=== PATIENT | female | born 1935 | race Caucasian/White ===

== ENCOUNTER 2017-12-01 07:11 | Day surgery (SDC) | payer BC, OTHER ==
[2017-11-28 12:35] VITALS: BMI 18.4
[2017-12-01] MEDS ORDERED: PROPOFOL 20 ML ONE ×2 (08:31→09:52)
[2017-12-01] MEDS ORDERED: MIDAZOLAM HCL 2 MG/2 ML SINGLE DOSE VIAL ONE ×2 (08:31→09:30)
[2017-12-01] MEDS ORDERED: LIDOCAINE HCL 2% (20ML MULTI-DOSE VIAL) NR ONE (08:54)
[2017-12-01] MEDS ORDERED: ceFAZolin SODIUM 1 GM VIAL ONE (09:53)
[2017-12-01] MEDS ORDERED: LIDOCAINE HCL 2% (50ML VIAL) INF ONE (09:55)
[2017-12-01 10:53] VITALS: BP 101/65; PULSE 74; TEMP 97.8
--- NOTE | 2017-12-01 14:04 | OP ---
DATE OF OPERATION: 12/01/2017 SURGEON: Sherin Walters MD AUTO WASH BUFFER: RODOLFO Bermudez PREOPERATIVE DIAGNOSIS: Right wrist de Quervain tenosynovitis. POSTOPERATIVE DIAGNOSIS: Right wrist de Quervain tenosynovitis. PROCEDURE: Release of de Quervain sheath. FINDINGS: Thickened de Quervain sheath with impingement upon the abductor and extensor tendons. DESCRIPTION OF PROCEDURE: Informed consent was obtained. The patient was taken to the operating room where the right wrist was prepped and draped in sterile fashion. Upper arm was prepped from the fingertips to the elbow. Tourniquet was inflated to 250 mmHg. A horizontal incision was made approximately 3 cm in length 2 cm proximal to the distal radial styloid. The tendon sheath was incised and then extended proximally and distally using blunt tenotomy scissors. The tendons were found to be scarred into the groove along the radius. These were released. The wounds were irrigated with extensive irrigation. The superior lip of the tissue along the groove at de Quervain sheath was then sewn into the subcutaneous layer on the volar surface to prevent subluxation or dislocation. The wound was irrigated again and closed with 4-0 nylon in simple interrupted sutures. SHERIN WALTERS M.D. [id number]
== END 2017-12-01 11:17 | disposition home or self-care (01) ==
LOC: FASU 07:11
PROVIDERS: ATTEND Orthopaedic Surgery
PROC: 0LN50ZZ Release Right Lower Arm and Wrist Tendon, Open Approach (ICD-10-PCS; principal; 2017-12-01 09:55)
DX: M65.4 Radial styloid tenosynovitis [de Quervain] (principal)

== ENCOUNTER 2019-10-04 15:13 | Emergency (ER) | payer BC, OTHER ==
--- NOTE | 2019-10-04 15:15 | PDOC ---
History of Present Illness - General Chief Complaint: Back Pain Stated Complaint: R flank pain/LLE wound Time Seen by Provider: 10/04/19 15:15 Past History - Medical History Allergies/Adverse Reactions: Allergies Allergy/AdvReac Type Severity Reaction Status Date / Time No Known Allergies Allergy Verified 12/01/17 07:46 Home Medications: Ambulatory Orders Amlodipine Besylate 5 mg PO DAILY 11/28/17 Aspirin [ASA -] 81 mg PO DAILY 11/28/17 Atorvastatin Ca [Lipitor] 10 mg PO DAILY 11/28/17 Metoprolol Tartrate [Lopressor -] 50 mg PO DAILY 11/28/17 Umeclidinium Brm/Vilanterol Tr [Anoro Ellipta 62.5-25 Mcg INH] 1 each IH DAILY 11/29/17 Anemia: No Asthma: No Cancer: Yes (SKIN CANCER) Cardiac Disorders: No CVA: No COPD: Yes CHF: No Dementia: No Diabetes: No GI Disorders: No Disorders: No HTN: Yes Hypercholesterolemia: Yes Liver Disease: No Seizures: No Thyroid Disease: No - Surgical History Abdominal Surgery: No Appendectomy: Yes (CHILDHOOD) Cardiac Surgery: No Cholecystectomy: No Lung Surgery: No Neurologic Surgery: No Orthopedic Surgery: No - Immunization History Immunization Up to Date: Yes - Psycho-Social/Smoking History Smoking History: Former smoker Have you smoked in the past 12 months: No Number of Cigarettes Smoked Daily: 2 If you are a former smoker, when did you quit?: 2016 Cigars Per Day: 0 'Breaking Loose' booklet given: 05/20/15
[2019-10-04 15:37] VITALS: BMI 18.4
[2019-10-04] MEDS ORDERED: traMADol HCL 50 MG TABLET PO ONE (15:39)
--- NOTE | 2019-10-04 15:51 | PDOC ---
Documentation entered by Trinidad Doyle SCRIBE, acting as scribe for Bernadette Bryant MD. Bernadette Bryant MD: This documentation has been prepared by the Vivek burger Xhesika, SCRIBE, under my direction and personally reviewed by me in its entirety. I confirm that the documentation accurately reflects all work, treatment, procedures, and medical decision making performed by me. History of Present Illness - General Chief Complaint: Back Pain Stated Complaint: R flank pain/LLE wound Time Seen by Provider: 10/04/19 15:15 History Source: Patient Exam Limitations: No Limitations - History of Present Illness Initial Comments: 10/04/19 15:17 The patient is a 83y/o F with a PMH of COPD, hypertension, skin ca who presents to the ED for R flank pain since last night. Pt states her pain is localized only at her "bottom rib," with no aggravating factor. Pt states she bent over to feed the cats and might have "pulled a muscle." Daughter states this morning she noticed a LLE wound that the patient reports is from a "cat scratch." Per daughter, the patient took Tylenol this AM, with no improvement of symptoms. The patient denies any other symptoms/ complaints. Allergies: NKDA Past surgical history: Appendectomy (childhood) Social Hx:former smoker PCP: Dr. Coronado Past History - Medical History Allergies/Adverse Reactions: Allergies Allergy/AdvReac Type Severity Reaction Status Date / Time No Known Allergies Allergy Verified 12/01/17 07:46 Home Medications: Ambulatory Orders Aspirin [ASA -] 81 mg PO DAILY 11/28/17 Metoprolol Tartrate [Lopressor -] 50 mg PO DAILY 11/28/17 Umeclidinium Brm/Vilanterol Tr [Anoro Ellipta 62.5-25 Mcg INH] 1 each IH DAILY 11/29/17 Anemia: No Asthma: No Cancer: Yes (SKIN CANCER) Cardiac Disorders: No CVA: No COPD: Yes CHF: No Dementia: No Diabetes: No GI Disorders: No Disorders: No HTN: Yes Hypercholesterolemia: Yes Liver Disease: No Seizures: No Thyroid Disease: No - Surgical History Abdominal Surgery: No Appendectomy: Yes (CHILDHOOD) Cardiac Surgery: No Cholecystectomy: No Lung Surgery: No Neurologic Surgery: No Orthopedic Surgery: No - Immunization History Immunization Up to Date: Yes - Psycho-Social/Smoking History Smoking History: Former smoker Have you smoked in the past 12 months: No Number of Cigarettes Smoked Daily: 2 If you are a former smoker, when did you quit?: 2016 Cigars Per Day: 0 'Breaking Loose' booklet given: 05/20/15 Review of Systems - Review of Systems Able to Perform ROS?: Yes Comments:: 10/04/19 15:41 GENERAL/CONSTITUTIONAL: No fever or chills. No weakness. HEAD, EYES, EARS, NOSE AND THROAT: No change in vision. No ear pain or discharge. No sore throat. CARDIOVASCULAR: No chest pain or shortness of breath. RESPIRATORY: No cough, wheezing, or hemoptysis. GASTROINTESTINAL: No nausea, vomiting, diarrhea or constipation. GENITOURINARY: No dysuria, frequency, or change in urination. MUSCULOSKELETAL: + R flank pain. No joint or muscle swelling or pain. No neck pain SKIN: +LLE wound NEUROLOGIC: No headache, vertigo, loss of consciousness, or change in strength/sensation. ENDOCRINE: No increased thirst. No abnormal weight change. HEMATOLOGIC/LYMPHATIC: No anemia, easy bleeding, or history of blood clots. ALLERGIC/IMMUNOLOGIC: No hives or skin allergy. *Physical Exam - Physical Exam GENERAL: Awake, alert, and fully oriented, in no acute distress HEAD: No signs of trauma EYES: PERRLA, EOMI, sclera anicteric, conjunctiva clear ENT: Auricles normal inspection, hearing grossly normal, nares patent, oropharynx clear without exudates. Moist mucosa NECK: Normal ROM, supple, no lymphadenopathy, JVD, or masses LUNGS: Breath sounds equal, clear to auscultation bilaterally. No wheezes, and no crackles. +Tenderness to the R lateral lower rib margin. No visible ecchymosis, no signs of trauma. HEART: Regular rate and rhythm, normal S1 and S2, no murmurs, rubs or gallops ABDOMEN: Soft, nontender, normoactive bowel sounds. No guarding, no rebound. No masses EXTREMITIES: L lower leg with healing lesion surrounded by approx 1cm of erythema, no lymphatic streaking. Remainder of extremities with normal range of motion, no edema. No clubbing or cyanosis. No cords, erythema, or tenderness NEUROLOGICAL: Cranial nerves II through XII grossly intact. Normal speech, normal gait. Motor and sensation intact SKIN: Warm, dry, normal turgor, no rashes or lesions noted. Medical Decision Making - Medical Decision Making 10/04/19 15:51 Nontraumatic R rib pain. History of osteoporosis, history of prior fractures without trauma. Will give tramadol for pain, as she has tolerated it in the past. XR to evaluate. 10/04/19 17:44 Will give pain meds for R 8th rib chronic fracture, abx for cellulitis of LLE. Stable for DC home. Discharge - Discharge Information Problems reviewed: Yes Clinical Impression/Diagnosis: Cellulitis of left leg Fracture, rib Qualifiers: Encounter type: initial encounter Rib fracture type: single rib Fracture type: closed Laterality: unspecified laterality Qualified Code(s): S22.39XA - Fracture of one rib, unspecified side, initial encounter for closed fracture Condition: Stable Disposition: HOME - Follow up/Referral Referrals: Clint Cornoado MD [Primary Care Provider] - - Patient Discharge Instructions - Post Discharge Activity
[2019-10-04] MEDS ORDERED: traMADol HCL 50 MG TABLET ONE (15:56)
[2019-10-04 17:10] VITALS: BP 138/93; PULSE 73; TEMP 98.7
== END 2019-10-04 17:59 | disposition home or self-care (01) ==
LOC: SUPCPDRO 15:13 → FER 15:13
DX: S22.31XA Fracture of one rib, right side, initial encounter for closed fracture (principal); Y99.8 Other external cause status
CPT/HCPCS: 71101-TC-RT-FY; 99283-25

== ENCOUNTER 2019-10-09 13:05 | Inpatient (IN) | payer BC, OTHER ==
--- NOTE | 2019-10-09 13:28 | PDOC ---
History of Present Illness - General Chief Complaint: Chronic pain Stated Complaint: Chest Pain Time Seen by Provider: 10/09/19 13:26 - History of Present Illness Initial Comments: The pt is a 83F w/ a history of HTN, chronic pain, COPD, chronic rib fractures who presents for evaluation of b/l thoracic wall pain. The pain is intermittent, sharp, non-radiating, worse with movement/touch/breathing, and not alleviated by anything she can identify. Denies any recent falls or trauma. No fevers or cough at home. She has been taking Tramadol and Tylenol for symptomatic relief. Denies fevers/chills, abdominal pain, N/V, dysuria, hematuria, or changes in strength/sensation. 10/09/19 14:10 Past History - Medical History Allergies/Adverse Reactions: Allergies Allergy/AdvReac Type Severity Reaction Status Date / Time No Known Allergies Allergy Verified 10/09/19 13:22 Home Medications: Ambulatory Orders Aspirin [ASA -] 81 mg PO DAILY 11/28/17 Metoprolol Tartrate [Lopressor -] 50 mg PO DAILY 11/28/17 Umeclidinium Brm/Vilanterol Tr [Anoro Ellipta 62.5-25 Mcg INH] 1 each IH DAILY 11/29/17 Cephalexin Monohydrate [Keflex -] 250 mg PO Q6H #28 capsule 10/04/19 Tramadol HCl 50 mg PO Q6H PRN #12 tablet MDD 4 tabs 10/04/19 Acetaminophen [Tylenol] 650 mg PO Q6H 10/09/19 Anemia: No Asthma: No Cancer: Yes (SKIN CANCER) Cardiac Disorders: No CVA: No COPD: Yes CHF: No Dementia: No Diabetes: No GI Disorders: No Disorders: No HTN: Yes Hypercholesterolemia: Yes Liver Disease: No Seizures: No Thyroid Disease: No - Surgical History Abdominal Surgery: No Appendectomy: Yes (CHILDHOOD) Cardiac Surgery: No Cholecystectomy: No Lung Surgery: No Neurologic Surgery: No Orthopedic Surgery: No - Immunization History Immunization Up to Date: Yes - Psycho-Social/Smoking History Smoking History: Never smoked Have you smoked in the past 12 months: No Number of Cigarettes Smoked Daily: 2 If you are a former smoker, when did you quit?: 2016 Cigars Per Day: 0 'Breaking Loose' booklet given: 05/20/15 - Substance Abuse Hx (Audit-C & DAST Scrn) How often the patient has a drink containing alcohol: Never Score: In Men: 4 or > Positive; In Women: 3 or > Positive: 0 Screen Result (Pos requires Nsg. Audit-10AR): Negative In the last yr the pt used illegal drug/Rx for NonMed reason: No Score: Yes response is considered Positive: 0 Screen Result (Positive result requires Nsg. DAST-10): Negative Review of Systems - Review of Systems Able to Perform ROS?: Yes Comments:: GENERAL/CONSTITUTIONAL: No fever or chills. HEAD, EYES, EARS, NOSE AND THROAT: No change in vision. No change in hearing. No sore throat CARDIOVASCULAR: +chest wall pain RESPIRATORY: Denies cough GASTROINTESTINAL: No nausea, vomiting, diarrhea or constipation GENITOURINARY: No dysuria MUSCULOSKELETAL: +thoracic wall pain SKIN: No rash NEUROLOGIC: No headache, vertigo, loss of consciousness, or change in strength/sensation ENDOCRINE: No increased thirst. No abnormal weight change HEMATOLOGIC/LYMPHATIC: No anemia, easy bleeding, or history of blood clots ALLERGIC/IMMUNOLOGIC: No hives or skin allergy 10/09/19 13:27 Is the patient limited Ukrainian proficient: No *Physical Exam - Vital Signs Last Vital Signs Temp Pulse Resp BP Pulse Ox 98.5 F 83 20 160/88 95 10/09/19 13:23 10/09/19 13:23 10/09/19 13:23 10/09/19 13:23 10/09/19 13:23 - Physical Exam GENERAL: Awake, alert, and oriented to person/place/time, in no acute distress HEAD: No signs of trauma, normocephalic, atraumatic EYES: PERRLA, EOMI, sclera anicteric, conjunctiva clear ENT: Hearing grossly normal, nares patent, oropharynx clear without exudates. Dry mucosa LUNGS: No distress, speaks in full sentences, clear to auscultation bilaterally HEART: Regular rate and rhythm, normal S1 and S2, no murmurs appreciated, peripheral pulses normal and equal bilaterally CHEST: B/l thoracic wall TTP w/o underlying bony crepitus, ecchymosis, or wound ABDOMEN: Soft, nontender, normoactive bowel sounds. No guarding, no rebound EXTREMITIES: Moves all extremities independently NEUROLOGICAL: Cranial nerves II through XII grossly intact. Normal speech, no focal sensorimotor deficits SKIN: Warm, Dry 10/09/19 13:28 ED Treatment Course - LABORATORY CBC & Chemistry Diagram: 10/09/19 13:54 10/09/19 13:54 Medical Decision Making - Medical Decision Making The pt is a 83F w/ a history of HTN, chronic pain, COPD, chronic rib fractures who presents for evaluation of b/l thoracic wall pain and was sent here for admission by Dr. Sharma ED Course Labs sent ECG COVID 10/09/19 14:14 WBC 10.3 No anemia Lytes overall unremarkable No ISABELL LFTs overall unremarkable ECG w/ poor baseline; NSR; HR 69; QTc 413; no axis deviation; no acute ischemic changes Case discussed with Dr. Sharma, will obtain CT chest CT chest w/ likely developing infiltrate w/o fx - will treat with Ceftriaxone and Azithromycin Plan for admission for pain control and PNA tx 10/09/19 18:08 Discharge - Discharge Information Problems reviewed: Yes Clinical Impression/Diagnosis: Intractable pain, Chest wall pain Condition: Stable - Admission Yes - Follow up/Referral - Patient Discharge Instructions - Post Discharge Activity
[2019-10-09 14:11] LABS: BASO % 1.1 % (0-2.0); EOS % 0.7 % (0-4.5); HEMATOCRIT 36.8 % (32.4-45.2); HEMOGLOBIN 12.4 GM/dL (10.7-15.3); LYMPH % 13.8 % (8-40); MCH 32.8 pg (25.7-33.7); MCHC 33.8 g/dl (32.0-36.0); MEAN CELL VOLUME 97.1 fl (80-96); MONO % 10.1 % (3.8-10.2); NEUT % 74.3 % (42.8-82.8); PLATELET COUNT 489 K/MM3 (134-434); RBC 3.79 M/mm3 (3.60-5.2); RDW 12.6 % (11.6-15.6); WHITE BLOOD COUNT 10.3 K/mm3 (4.0-10.0)
--- NOTE | 2019-10-09 14:29 | PDOC ---
Documentation entered by Viridiana Escoto SCRIBE, acting as scribe for Nazario Silva MD. Nazario Silva MD: This documentation has been prepared by the Jevon burger Ana, SCRIBE, under my direction and personally reviewed by me in its entirety. I confirm that the documentation accurately reflects all work, treatment, procedures, and medical decision making performed by me. Attending Attestation - Resident Resident Name: Santana Villegas - ED Attending Attestation I have performed the following: I have examined & evaluated the patient, The case was reviewed & discussed with the resident, I agree w/resident's findings & plan, Exceptions are as noted - HPI HPI: 10/09/19 13:26 Patient is an 83 year old female with a significant past medical history of tobacco use, COPD, hypertension, skin ca, chronic pain, and compression f ractures in vertebrae, who presents to the ED with weeks of worsening chest wall pain. Patient stated the pain is sharp, non-radiating, and intermittent which becomes worse when breathing, movement, and touch - but nothing makes the pain better. Pt states she first experienced the pain while bending down to feed her cats last week. Was seen in the ED and had negative rib series. Patient denies: any recent falls/ trauma, any changes in strength/ sensation, fevers, chills, nausea, vomiting, coughs, abdominal pain, dysuria, hematuria, or any other related symptoms. Allergies: NKDA PCP: Dr. Clint Coronado - Physicial Exam PE: 10/09/19 13:27 See resident exam - Medical Decision Making 10/09/19 14:30 83 F with rib pain, sent in for admission for pain control. - Labs - CXR - EKG Discharge - Discharge Information Problems reviewed: Yes Clinical Impression/Diagnosis: Chest wall pain, Intractable pain Condition: Stable - Follow up/Referral - Patient Discharge Instructions - Post Discharge Activity
[2019-10-09 14:50] LABS: ALBUMIN 3.3 g/dl (3.4-5.0); BILIRUBIN,TOTAL 0.5 mg/dL (0.2-1); BLOOD UREA NITROGEN 22.4 mg/dL (7-18); POTASSIUM 4.2 mmol/L (3.5-5.1); TOT PROT 6.9 g/dl (6.4-8.2)
[2019-10-09] MEDS ORDERED: ACETAMINOPHEN 1000 MG/100 ML VIAL (NON FORMULARY) IVPB ONE (15:07)
[2019-10-09] MEDS ORDERED: ACETAMINOPHEN INJECTION 100 ML IVPB ONE (15:08)
[2019-10-09] MEDS ORDERED: CEFTRIAXONE 1 GM in DEXTROSE 5%-WATER - 50 ML IVPB ONE ×2 (18:08→19:00)
[2019-10-09] MEDS ORDERED: AZITHROMYCIN IVPB 500 MG/250 ML BAG IVPB ONE ×3 (18:08→19:52)
[2019-10-09 18:17] VITALS: BMI 17.9
[2019-10-09] MEDS ORDERED: cefTRIAXone SODIUM 1 GM VIAL ONE (19:52)
[2019-10-09] MEDS ORDERED: DEXTROSE 5%-WATER - 50 ML IVPB ONE (19:55)
[2019-10-09] MEDS ORDERED: ACETAMINOPHEN 500 MG TABLET (FP) PO PRN (20:28)
[2019-10-09] MEDS: traMADol HCL 50 MG TABLET PO PRN (21:11)
--- NOTE | 2019-10-09 22:58 | HP ---
Admitting History and Physical - Primary Care Physician PCP: Myrna Sharma - Admission Chief Complaint: SOB, Back Pain History of Present Illness: This is a 83 y/o female with a PMHx of HTN, COPD, Anemia, OA, Chronic Pain, Chronic Rib Fractures. Who presents to the ED with SOB and back pain. Patient reports having generalized weakness, increased SOB worse with exertion. Patient states" I'm so weak that my daughter had to help me to the bathroom". Patient uses a walker for ambulation, but says she is to weak to use it. Patient lives alone and states she needs help at home. Patient denies fever, chills, cough, MITCHELL, dizziness,l CP, palpitations, AP, N/V, dysuria. Patient denies any sick contacts or recent travel. History Source: Patient Limitations to Obtaining History: No Limitations - Past Medical History Cardiovascular: Yes: HTN Pulmonary: Yes: COPD Heme/Onc: Yes: Anemia Musculoskeletal: Yes: Osteoarthritis, Other (severe osteroporosis) - Smoking History Smoking history: Former smoker Have you smoked in the past 12 months: No Aproximately how many cigarettes per day: 2 If you are a former smoker, when did you quit?: 2016 - Alcohol/Substance Use Hx Alcohol Use: No (RARE) History of Substance Use: reports: None - Social History Usual Living Arrangement: Yes: Alone ADL: Family Assistance History of Recent Travel: No Home Medications - Allergies Allergies/Adverse Reactions: Allergies Allergy/AdvReac Type Severity Reaction Status Date / Time No Known Allergies Allergy Verified 10/09/19 13:22 - Home Medications Home Medications: Ambulatory Orders Aspirin [ASA -] 81 mg PO DAILY 11/28/17 Metoprolol Tartrate [Lopressor -] 50 mg PO DAILY 11/28/17 Umeclidinium Brm/Vilanterol Tr [Anoro Ellipta 62.5-25 Mcg INH] 1 each IH DAILY 11/29/17 Cephalexin Monohydrate [Keflex -] 250 mg PO Q6H #28 capsule 10/04/19 Tramadol HCl 50 mg PO Q6H PRN #12 tablet MDD 4 tabs 10/04/19 Acetaminophen [Tylenol] 650 mg PO Q6H 10/09/19 Metamucil 1 PO DAILY 10/09/19 Family Medical History Family History: Unable to Obtain Review of Systems - Review of Systems Constitutional: reports: Weakness Eyes: reports: No Symptoms HENT: reports: No Symptoms Neck: reports: No Symptoms Cardiovascular: reports: Shortness of Breath Respiratory: reports: SOB, SOB on Exertion Gastrointestinal: reports: Constipation Genitourinary: reports: No Symptoms Breasts: reports: No Symptoms Reported Musculoskeletal: reports: Back Pain Integumentary: reports: No Symptoms Neurological: reports: Unsteady Gait, Weakness Endocrine: reports: No Symptoms Hematology/Lymphatic: reports: No Symptoms Psychiatric: reports: No Symptoms Pain Intensity: 7 Physical Examination Vital Signs: Vital Signs Temperature 98.7 F 10/09/19 18:01 Pulse Rate 92 H 10/09/19 18:01 Respiratory Rate 18 10/09/19 18:01 Blood Pressure 122/66 10/09/19 18:01 O2 Sat by Pulse Oximetry (%) 95 10/09/19 18:01 Constitutional: Yes: Cachectic, Mild Distress, Thin Eyes: Yes: WNL, Conjunctiva Clear, EOM Intact, PERRL HENT: Yes: WNL, Atraumatic, Normocephalic Neck: Yes: WNL, Supple, Trachea Midline Cardiovascular: Yes: Regular Rate and Rhythm, S1, S2 Respiratory: Yes: Diminished Gastrointestinal: Yes: Soft, Hypoactive Bowel Sounds ...Rectal Exam: Yes: Deferred Renal/: Yes: WNL Breast(s): Yes: WNL Musculoskeletal: Yes: Back Pain Extremities: Yes: WNL Edema: No Peripheral Pulses WNL: Yes Integumentary: Yes: Other (scab to LLE) Neurological: Yes: Alert, Oriented, Cran Nerves II-XII Intact ...Motor Strength: WNL Psychiatric: Yes: WNL, Alert, Oriented Labs: CBC, BMP 10/09/19 13:54 10/09/19 13:54 Laboratory Results - last 24 hr 10/09/19 10/09/19 13:54 13:54 WBC 10.3 H RBC 3.79 Hgb 12.4 Hct 36.8 D MCV 97.1 H MCH 32.8 MCHC 33.8 RDW 12.6 Plt Count 489 H MPV 7.0 L Absolute Neuts (auto) 7.7 Neutrophils % 74.3 D Lymphocytes % 13.8 D Monocytes % 10.1 Eosinophils % 0.7 Basophils % 1.1 Nucleated RBC % 0 Sodium 135 L Potassium 4.2 Chloride 101 Carbon Dioxide 25 Anion Gap 9 BUN 22.4 H Creatinine 1.0 Est GFR (CKD-EPI)AfAm 59.49 Est GFR (CKD-EPI)NonAf 51.33 Random Glucose 84 Calcium 9.0 Total Bilirubin 0.5 AST 14 L ALT 11 L Alkaline Phosphatase 111 Total Protein 6.9 Albumin 3.3 L Intake & Output 10/06/19 10/07/19 10/08/19 10/09/19 23:59 23:59 23:59 23:59 Weight 45.813 kg Current Medications Generic Name Dose Route Start Last Admin Trade Name Freq PRN Reason Stop Dose Admin Acetaminophen 1,000 mg 10/09/19 20:29 Tylenol - PO Q6H PRN FEVER PAIN LEVEL 1-5 Aspirin 81 mg 10/10/19 10:00 Asa - PO DAILY [facility] Docusate Sodium 100 mg 10/09/19 23:00 Colace - PO TID [facility] Ceftriaxone Sodium 1 gm/ 50 mls @ 100 mls/hr 10/10/19 10:00 Dextrose IVPB DAILY [facility] Protocol Azithromycin 500 mg in 250 mls @ 250 mls/hr 10/10/19 10:00 Zithromax 500mg Ivpb (Pre-Docked) IVPB DAILY [facility] Metoprolol Tartrate 50 mg 10/10/19 10:00 Lopressor - PO DAILY [facility] Tramadol HCl 50 mg 10/09/19 20:27 10/09/19 21:11 Ultram - PO 50 mg Q6H PRN Administration PAIN LEVEL 6-10 Umeclidinium/Vilanterol 1 puff 10/10/19 10:00 Anoro Ellipta 62.5-25 Mcg Inh IH DAILY [facility] Imaging - Results Cat Scan: Report Reviewed, Image Reviewed EKG: Image Reviewed Problem List - Problems (1) Pneumonia Assessment/Plan: Will treat for CAP CURB65- 2, mod risk Blood Cultures pending Urine Legionella Mild leukocytosis without neutrophilia Pt is afebrile Chest CT reviewed- consolidations/atelectasis both bases R > L, with a small R- pleural effusion Continue Ceftriaxone, Azithromycin EKG-NSR QTc 413 Monitor CBC, CMP Monitor vitals Tylenol prn O2 Code(s): J18.9 - PNEUMONIA, UNSPECIFIED ORGANISM (2) Chronic back pain Code(s): M54.9 - DORSALGIA, UNSPECIFIED; G89.29 - OTHER CHRONIC PAIN (3) COPD (chronic obstructive pulmonary disease) Assessment/Plan: Chest CT- consolidation/atelectasis in bases R>L Appreciate Pulmonology Continue Albuterol MDI O2 Code(s): J44.9 - CHRONIC OBSTRUCTIVE PULMONARY DISEASE, UNSPECIFIED (4) HTN (hypertension) Assessment/Plan: stable Monitor BP Continue home meds Monitor renal function Code(s): I10 - ESSENTIAL (PRIMARY) HYPERTENSION Assessment/Plan This is a 83 y/o female with a PMHx of HTN, COPD, Chronic Pain, Chronic Rib Fractures. Admitted to [facility] for Pneumonia, Chronic Back Pain for further greta luation of their emergent condition. Plan: See Problem List FEN PO fluids as tolerated Replete lytes prn Low Na Diet DVT ppx OOB SCDs Heparin SQ Dispo: Requires Inpatient Care Visit type - Medication Review Med list reviewed for High Risk Meds patients 65 and older: No (orders placed by PMD) - Emergency Visit Emergency Visit: Yes ED Registration Date: 10/09/19 Care time: The patient presented to the Emergency Department on the above date and was hospitalized for further evaluation of their emergent condition. - New Patient This patient is new to me today: Yes Date on this admission: 10/09/19 - Critical Care Critical Care patient: No
[2019-10-10] MEDS: DOCUSATE SODIUM 100 MG CAPSULE (FP) PO SCH ×4 (00:12→21:57)
--- NOTE | 2019-10-10 08:20 | PN ---
Progress Note, Physician - Current Medication List Current Medications: Active Medications Acetaminophen (Tylenol -) 1,000 mg PO Q6H PRN PRN Reason: FEVER PAIN LEVEL 1-5 Aspirin (Asa -) 81 mg PO DAILY [facility] Docusate Sodium (Colace -) 100 mg PO TID [facility] Last Admin: 10/10/19 06:31 Dose: 100 mg Documented by: Ceftriaxone Sodium 1 gm/ (Dextrose) 50 mls @ 100 mls/hr IVPB DAILY [facility]; Protocol Azithromycin (Zithromax 500mg Ivpb (Pre-Docked)) 500 mg in 250 mls @ 250 mls/hr IVPB DAILY [facility] Metoprolol Tartrate (Lopressor -) 50 mg PO DAILY [facility] Tramadol HCl (Ultram -) 50 mg PO Q6H PRN PRN Reason: PAIN LEVEL 6-10 Last Admin: 10/09/19 21:11 Dose: 50 mg Documented by: Umeclidinium/Vilanterol (Anoro Ellipta 62.5-25 Mcg Inh) 1 puff IH DAILY [facility] - Objective Vital Signs: Vital Signs Temperature 98.6 F 10/10/19 05:09 Pulse Rate 75 10/10/19 05:09 Respiratory Rate 18 10/10/19 05:09 Blood Pressure 124/84 10/10/19 05:09 O2 Sat by Pulse Oximetry (%) 96 10/10/19 05:09 Cardiovascular: Yes: S1, S2 Respiratory: Yes: Diminished Gastrointestinal: Yes: Normal Bowel Sounds, Soft Labs: CBC, BMP 10/09/19 13:54 10/09/19 13:54 Problem List - Problems (1) Pneumonia Assessment/Plan: Blood Cultures pending Urine Legionella Mild leukocytosis without neutrophilia Pt is afebrile Chest CT reviewed- consolidations/atelectasis both bases R > L, with a small R- pleural effusion Continue Ceftriaxone, Azithromycin pulm and id consults Abnormal Lab Results 10/09/19 10/09/19 13:54 13:54 WBC 10.3 H MCV 97.1 H Plt Count 489 H MPV 7.0 L Sodium 135 L BUN 22.4 H AST 14 L ALT 11 L Albumin 3.3 L Code(s): J18.9 - PNEUMONIA, UNSPECIFIED ORGANISM (2) COPD (chronic obstructive pulmonary disease) Assessment/Plan: Chest CT- consolidation/atelectasis in bases R>L Appreciate Pulmonology Continue Albuterol MDI O2 Code(s): J44.9 - CHRONIC OBSTRUCTIVE PULMONARY DISEASE, UNSPECIFIED (3) HTN (hypertension) Assessment/Plan: stable Monitor BP Continue home meds Vital Signs Period Temp Pulse Resp BP Sys/Anthony Pulse Ox Last 24 Hr 98.5 F-98.7 F 72-92 18-20 122-160/54-88 90-97 Code(s): I10 - ESSENTIAL (PRIMARY) HYPERTENSION (4) Fracture, rib Assessment/Plan: history need to gather info Code(s): S22.39XA - FRACTURE OF ONE RIB, UNSP SIDE, INIT FOR CLOS FX Qualifiers: Encounter type: initial encounter Rib fracture type: single rib Fracture type: closed Laterality: unspecified laterality Qualified Code(s): S22.39XA - Fracture of one rib, unspecified side, initial encounter for closed fracture (5) Lung cancer Assessment/Plan: per oncology obtain records Code(s): C34.90 - MALIGNANT NEOPLASM OF UNSP PART OF UNSP BRONCHUS OR LUNG
[2019-10-10] MEDS: traMADol HCL 50 MG TABLET PO PRN ×2 (08:28→17:22)
[2019-10-10 08:46] LABS: BASO % 1.1 % (0-2.0); EOS % 1.8 % (0-4.5); HEMATOCRIT 36.4 % (32.4-45.2); HEMOGLOBIN 12.4 GM/dL (10.7-15.3); LYMPH % 20.4 % (8-40); MCH 33.2 pg (25.7-33.7); MEAN CELL VOLUME 97.6 fl (80-96); MEAN PLT VOLUME 6.9 fl (7.5-11.1); MONO % 9.4 % (3.8-10.2); NEUT % 67.3 % (42.8-82.8); PLATELET COUNT 472 K/MM3 (134-434); RBC 3.73 M/mm3 (3.60-5.2); WHITE BLOOD COUNT 9.4 K/mm3 (4.0-10.0)
[2019-10-10 09:19] LABS: ALBUMIN 2.9 g/dl (3.4-5.0); BILIRUBIN,TOTAL 0.5 mg/dL (0.2-1); BLOOD UREA NITROGEN 19.2 mg/dL (7-18); CALCIUM 8.7 mg/dL (8.5-10.1); POTASSIUM 4.3 mmol/L (3.5-5.1); TOT PROT 6.4 g/dl (6.4-8.2)
--- NOTE | 2019-10-10 10:06 | PN ---
Progress Note (short form) - Note Progress Note: ID CONSULT DICTATED DENSE RLL LUNG CONSOLIDATION R/O SEPSIS SECONDARY TO PNEUMONIA ? LUNG MALIGNANCY + VERTEBRAL COMPRESSION FRACTURES, OLD R RIB FRACTURES OBTAIN C/S, LEGIONELLA AG, CYTOLOGY EMPIRIC ZITHROMAX/ CEFTRIAXONE
[2019-10-10] MEDS ORDERED: cefTRIAXone SODIUM 1 GM VIAL ONE (10:36)
[2019-10-10] MEDS ORDERED: PT OWN MED DRAWER 7, Y5N ONE (10:36)
[2019-10-10] MEDS ORDERED: DEXTROSE 5%-WATER - 50 ML IVPB ONE (10:37)
[2019-10-10] MEDS: METOPROLOL TARTRATE 50 MG TABLET (FP) PO SCH (11:03)
[2019-10-10] MEDS: ASPIRIN 81 MG CHEWABLE TABLETS PO SCH (11:03)
[2019-10-10] MEDS: CEFTRIAXONE 1 GM in DEXTROSE 5%-WATER - 50 ML IVPB SCH (11:04)
[2019-10-10] MEDS: AZITHROMYCIN IVPB 500 MG/250 ML BAG IVPB SCH (12:06)
[2019-10-10] MEDS: ACETAMINOPHEN 500 MG TABLET (FP) PO PRN (12:08)
--- NOTE | 2019-10-10 12:11 | EKG ---
Test Reason : Blood Pressure : / mmHG Vent. Rate : 069 BPM Atrial Rate : 069 BPM P-R Int : 186 ms QRS Dur : 078 ms QT Int : 386 ms P-R-T Axes : 024 050 072 degrees QTc Int : 413 ms POOR DATA QUALITY, INTERPRETATION MAY BE ADVERSELY AFFECTED NORMAL SINUS RHYTHM MODERATE VOLTAGE CRITERIA FOR LVH, MAY BE NORMAL VARIANT BORDERLINE ECG WHEN COMPARED WITH ECG OF 13-AUG-2015 16:26, NO SIGNIFICANT CHANGE WAS FOUND Confirmed by LARS DILLON MD ([id number]) on 10/10/2019 12:11:46 PM Referred By: Confirmed By:LARS DILLON MD
[2019-10-10] MEDS: UMECLIDINIUM/VILANTEROL (ANORO) 62.5/25 MCG INHALER IH SCH (13:33)
--- NOTE | 2019-10-10 14:25 | CONS ---
INFECTIOUS DISEASE CONSULTATION DATE OF CONSULTATION: DATE OF DICTATION: 10/10/2019 The patient is an 83-year-old female who is evaluated for pneumonia. She was admitted to the hospital on October 09, 2019, with complaints of right-sided chest pain and right rib pain. She had experienced sharp pain in the right side of her chest and right flank, which was exacerbated by movement, deep inspiration, and cough. She had presented to the emergency room at [facility] where x-rays of the ribs were performed. She was noted to have what appeared to be an old fracture of the eighth right rib, as well as a healed fracture of the right fifth rib. She denies falling or any traumatic injury in the past. The patient reports cough which is dry in nature. She denies any hemoptysis. She has a history of tobacco use, stopping approximately 2 years ago. Upon presentation, a CAT scan of the chest was performed, and showed a dense mass-like consolidation in the right lower lobe. In addition, there was evidence of compression fractures of the thoracic and upper lumbar vertebrae, which were unchanged from previous studies. In addition, pulmonary nodules were noted, right upper lobe and left upper lobe. Patient lives alone with her cats. She basically stays home. She denies any ill contacts. She stopped smoking 2 years ago. No recent travel. No known contact with COVID-19 patients. PAST MEDICAL HISTORY: Positive for COPD, osteoarthritis, hypertension, skin cancer, vertebral compression fractures. ALLERGIES: No known allergies. MEDICATIONS: Include Zithromax, ceftriaxone, metoprolol, aspirin, tramadol, Colace. SOCIAL HISTORY: As per HPI. SYSTEMS REVIEW: Neurologic: No loss of consciousness, seizure activity, focal weakness. Cardiac: Negative chest pain or palpitations. Respiratory: As per HPI. Gastrointestinal: Negative vomiting or diarrhea. Genitourinary: Negative for urinary tract infection. LABORATORY DATA: White count 10.3, presently 9.4; hematocrit 36.4; platelet count 472. Creatinine 1.0. Cultures pending. PHYSICAL EXAMINATION: General: She is an elderly female. She is supine in bed, in no acute distress. Her breathing is non-labored. Vital Signs: Temperature 98.6; blood pressure 124/84; pulse 75, regular; respirations 16 per minute. HEENT: Sclerae anicteric. Heart: Sounds S1, S2. Lungs: Diminished breath sounds bilaterally. Abdomen: Soft, nontender. Extremities: Negative for edema. There is no bruising noted on the right ribcage area. IMPRESSION: 1. Dense right lower lobe lung consolidation, probable community-acquired versus atypical pneumonia; cannot rule out lung malignancy. 2. Rule out sepsis secondary to pneumonia. 3. Vertebral compression fractures and old right rib fractures on imaging study. Await cultures. Obtain urine, legionella antigen, sputum culture, sputum cytology. Empiric antibiotic coverage with Zithromax and ceftriaxone. Would recommend followup imaging to document resolution of CAT scan findings and biopsy if deemed necessary to rule out malignancy. Thank you for the kind referral. GARDENIA FRIEDMAN M.D. [id number]
--- NOTE | 2019-10-10 15:01 | CON.PULM ---
Consult Consult Specialty:: PULM/CCM Referred by:: Hospitalist Reason for Consultation:: SOB - History of Present Illness Chief Complaint: SOB History of Present Illness: 83 M, RUL CA (details are scant: apparently managed by radiation at [facility] about 3 years ago. No adjuvant therapy. Reports having a follow up scheduled soon with her oncologist). Additional history of HTN, COPD, Anemia, OA, Chronic Pain, and rib fractures. Admitted via the ER due to SOB and back pain. Also reports having generalized weakness and STOREY. No hemoptysis or night sweats. No travel history or sick contacts. CT: Slight increase in RUL nodule / Bibasilar infiltrates with a small right effusion. - History Source History Provided By: Patient Limitations to Obtaining History: No Limitations - Past Medical History Cardio/Vascular: Yes: HTN Pulmonary: Yes: Cancer, COPD. No: O2 Dependent, Previously Intubated, Pulmonary Embolus, Pulmonary Fibrosis, Sleep Apnea Musculoskeletal: Yes: Osteoarthritis, Other (severe osteroporosis) - Alcohol/Substance Use Hx Alcohol Use: No (RARE) History of Substance Use: reports: None - Smoking History Smoking history: Former smoker Have you smoked in the past 12 months: No Aproximately how many cigarettes per day: 2 If you are a former smoker, when did you quit?: 2016 - Social History ADL: Family Assistance History of Recent Travel: No Home Medications - Allergies Allergies/Adverse Reactions: Allergies Allergy/AdvReac Type Severity Reaction Status Date / Time No Known Allergies Allergy Verified 10/09/19 13:22 - Home Medications Home Medications: Ambulatory Orders Aspirin [ASA -] 81 mg PO DAILY 11/28/17 Metoprolol Tartrate [Lopressor -] 50 mg PO DAILY 11/28/17 Umeclidinium Brm/Vilanterol Tr [Anoro Ellipta 62.5-25 Mcg INH] 1 each IH DAILY 11/29/17 Cephalexin Monohydrate [Keflex -] 250 mg PO Q6H #28 capsule 10/04/19 Tramadol HCl 50 mg PO Q6H PRN #12 tablet MDD 4 tabs 10/04/19 Acetaminophen [Tylenol] 650 mg PO Q6H 10/09/19 Metamucil 1 PO DAILY 10/09/19 Review of Systems - Review of Systems Constitutional: reports: Loss of Appetite, Malaise. denies: Chills, Fever, Night Sweats, Unintentional Wgt. Loss Eyes: reports: No Symptoms HENT: reports: No Symptoms Neck: reports: No Symptoms Cardiovascular: reports: Chest Pain, Shortness of Breath. denies: Edema, Palpitations Respiratory: reports: Cough, SOB, SOB on Exertion. denies: Hemoptysis, Orthopnea, Snoring, Wheezing Gastrointestinal: reports: No Symptoms Genitourinary: reports: No Symptoms Breasts: reports: No Symptoms Reported Musculoskeletal: reports: Back Pain Integumentary: reports: No Symptoms Neurological: reports: No Symptoms Endocrine: reports: No Symptoms Hematology/Lymphatic: reports: No Symptoms Psychiatric: reports: No Symptoms Physical Exam Vital Sings: Vital Signs Temperature 98 F 10/10/19 14:49 Pulse Rate 76 10/10/19 14:49 Respiratory Rate 18 10/10/19 14:49 Blood Pressure 152/75 10/10/19 14:49 O2 Sat by Pulse Oximetry (%) 96 10/10/19 14:49 Constitutional: Yes: No Distress, Calm, Thin Eyes: Yes: Conjunctiva Clear, EOM Intact HENT: Yes: Atraumatic, Normocephalic Neck: Yes: Supple, Trachea Midline Cardiovascular: Yes: Regular Rate and Rhythm Respiratory: Yes: Cough, Diminished, On Nasal O2, Rhonchi, SOB on Exertion. No: Accessory Muscle Use, Rales, SOB, Stridor, Tachypnea, Wheezes ...Inspection: Yes: WNL ...Clubbing: No Gastrointestinal: Yes: Normal Bowel Sounds, Soft Renal/: Yes: WNL Musculoskeletal: Yes: WNL Extremities: Yes: WNL Edema: No Peripheral Pulses WNL: Yes Integumentary: Yes: WNL Neurological: Yes: WNL, Alert, Oriented ...Motor Strength: WNL Psychiatric: Yes: WNL, Alert, Oriented Labs: CBC, BMP 10/10/19 08:17 10/10/19 08:17 Imaging - Results Chest X-ray: Report Reviewed, Image Reviewed Cat Scan: Report Reviewed, Image Reviewed Problem List - Problems (1) Chronic back pain Code(s): M54.9 - DORSALGIA, UNSPECIFIED; G89.29 - OTHER CHRONIC PAIN (2) HTN (hypertension) Code(s): I10 - ESSENTIAL (PRIMARY) HYPERTENSION (3) Pneumonia Code(s): J18.9 - PNEUMONIA, UNSPECIFIED ORGANISM (4) COPD (chronic obstructive pulmonary disease) Code(s): J44.9 - CHRONIC OBSTRUCTIVE PULMONARY DISEASE, UNSPECIFIED (5) Compression fracture of lumbar spine, non-traumatic Code(s): M48.56XA - COLLAPSED VERTEBRA, NEC, LUMBAR REGION, INIT (6) Fracture, rib Code(s): S22.39XA - FRACTURE OF ONE RIB, UNSP SIDE, INIT FOR CLOS FX Qualifiers: Encounter type: initial encounter Rib fracture type: single rib Fracture type: closed Laterality: unspecified laterality Qualified Code(s): S22.39XA - Fracture of one rib, unspecified side, initial encounter for closed fracture (7) Mass of right lung Code(s): R91.8 - OTHER NONSPECIFIC ABNORMAL FINDING OF LUNG FIELD Assessment/Plan ABX per ID Supplemental O2 as needed BD TX PRN Monitor off systemic steroids for now VTE prophylaxis Urine antigen Will need to gather more information about her cancer follow up (reports she is due for her follow up: daughters who are nurses have details) Will follow Thank you Dr Raymundo
[2019-10-11] MEDS: DOCUSATE SODIUM 100 MG CAPSULE (FP) PO SCH ×3 (06:10→21:27)
[2019-10-11] MEDS ORDERED: cefTRIAXone SODIUM 1 GM VIAL ONE (09:29)
[2019-10-11] MEDS ORDERED: DEXTROSE 5%-WATER - 50 ML IVPB ONE (09:29)
[2019-10-11] MEDS: METOPROLOL TARTRATE 50 MG TABLET (FP) PO SCH (09:39)
[2019-10-11] MEDS: CEFTRIAXONE 1 GM in DEXTROSE 5%-WATER - 50 ML IVPB SCH (09:39)
[2019-10-11] MEDS: ASPIRIN 81 MG CHEWABLE TABLETS PO SCH (09:39)
[2019-10-11] MEDS: AZITHROMYCIN IVPB 500 MG/250 ML BAG IVPB SCH (09:40)
[2019-10-11] MEDS: traMADol HCL 50 MG TABLET PO PRN (09:40)
--- NOTE | 2019-10-11 09:40 | PN ---
Progress Note, Physician - Current Medication List Current Medications: Active Medications Acetaminophen (Tylenol -) 1,000 mg PO Q6H PRN PRN Reason: FEVER PAIN LEVEL 1-5 Last Admin: 10/10/19 12:08 Dose: 1,000 mg Documented by: Aspirin (Asa -) 81 mg PO DAILY [facility] Last Admin: 10/10/19 11:03 Dose: 81 mg Documented by: Docusate Sodium (Colace -) 100 mg PO TID [facility] Last Admin: 10/11/19 06:10 Dose: 100 mg Documented by: Ceftriaxone Sodium 1 gm/ (Dextrose) 50 mls @ 100 mls/hr IVPB DAILY [facility]; Protocol Last Admin: 10/10/19 11:04 Dose: 100 mls/hr Documented by: Azithromycin (Zithromax 500mg Ivpb (Pre-Docked)) 500 mg in 250 mls @ 250 mls/hr IVPB DAILY [facility] Last Admin: 10/10/19 12:06 Dose: 250 mls/hr Documented by: Lidocaine (Lidoderm Patch -) 1 patch TP DAILY [facility] Metoprolol Tartrate (Lopressor -) 50 mg PO DAILY [facility] Last Admin: 10/10/19 11:03 Dose: 50 mg Documented by: Miscellaneous (Lidoderm Patch Removal) 1 each MC DAILY@2200 [facility] Tramadol HCl (Ultram -) 50 mg PO Q6H PRN PRN Reason: PAIN LEVEL 6-10 Last Admin: 10/10/19 17:22 Dose: 50 mg Documented by: Umeclidinium/Vilanterol (Anoro Ellipta 62.5-25 Mcg Inh) 1 puff IH DAILY [facility] Last Admin: 10/10/19 13:33 Dose: 1 puff Documented by: - Objective Vital Signs: Vital Signs Temperature 98.8 F 10/11/19 05:44 Pulse Rate 75 10/11/19 05:44 Respiratory Rate 18 10/11/19 05:44 Blood Pressure 150/72 10/11/19 05:44 O2 Sat by Pulse Oximetry (%) 97 10/11/19 05:44 Cardiovascular: Yes: Regular Rate and Rhythm Respiratory: Yes: Regular, CTA Bilaterally Gastrointestinal: Yes: Normal Bowel Sounds, Soft. No: Tenderness Labs: CBC, BMP 10/10/19 08:17 10/10/19 08:17 Problem List - Problems (1) Pneumonia Assessment/Plan: Blood Cultures pending Urine Legionella Mild leukocytosis without neutrophilia Pt is afebrile Chest CT reviewed- consolidations/atelectasis both bases R > L, with a small R- pleural effusion Continue Ceftriaxone, Azithromycin pulm and id consults Code(s): J18.9 - PNEUMONIA, UNSPECIFIED ORGANISM (2) COPD (chronic obstructive pulmonary disease) Assessment/Plan: Chest CT- consolidation/atelectasis in bases R>L Appreciate Pulmonology Continue Albuterol MDI O2 Code(s): J44.9 - CHRONIC OBSTRUCTIVE PULMONARY DISEASE, UNSPECIFIED (3) HTN (hypertension) Assessment/Plan: stable Monitor BP Continue home meds Vital Signs Period Temp Pulse Resp BP Sys/Anthony Pulse Ox Last 24 Hr 98.5 F-98.7 F 72-92 18-20 122-160/54-88 90-97 Code(s): I10 - ESSENTIAL (PRIMARY) HYPERTENSION (4) Fracture, rib Assessment/Plan: seen pn rib series pain control Code(s): S22.39XA - FRACTURE OF ONE RIB, UNSP SIDE, INIT FOR CLOS FX Qualifiers: Encounter type: initial encounter Rib fracture type: single rib Fracture type: closed Laterality: unspecified laterality Qualified Code(s): S22.39XA - Fracture of one rib, unspecified side, initial encounter for closed fracture (5) Lung cancer Assessment/Plan: per oncology obtain records d/w daughter last CT and oncology follow up all stable Received RT Code(s): C34.90 - MALIGNANT NEOPLASM OF UNSP PART OF UNSP BRONCHUS OR LUNG (6) Compression fracture of body of thoracic vertebra Assessment/Plan: MRI Code(s): S22.000A - WEDGE COMPRESSION FRACTURE OF UNSP THORACIC VERTEBRA, INIT
[2019-10-11] MEDS: UMECLIDINIUM/VILANTEROL (ANORO) 62.5/25 MCG INHALER IH SCH (09:48)
[2019-10-11] MEDS ORDERED: DOCUSATE SODIUM 100 MG CAPSULE (FP) PO SCH (10:00)
[2019-10-11] MEDS ORDERED: ENOXAPARIN NA (PORCINE) 40 MG/0.4 ML DISP.SYRIN SQ SCH (10:00)
--- NOTE | 2019-10-11 10:11 | PN ---
Progress Note (short form) - Note Progress Note: PULMONARY SPOKE WITH DAUGHTER PAIN RELIEF IS INADEQUATE FOR LEVEL OF PAIN VSS/AFEBRILE RESTING IN BED Constitutional: Yes: No Distress, Calm, Thin Eyes: Yes: Conjunctiva Clear, EOM Intact HENT: Yes: Atraumatic, Normocephalic Neck: Yes: Supple, Trachea Midline Cardiovascular: Yes: Regular Rate and Rhythm Respiratory: Yes: Cough, Diminished, On Nasal O2, Rhonchi, SOB on Exertion. No: Accessory Muscle Use, Rales, SOB, Stridor, Tachypnea, Wheezes ...Inspection: Yes: WNL ...Clubbing: No Gastrointestinal: Yes: Normal Bowel Sounds, Soft Renal/: Yes: WNL Musculoskeletal: Yes: WNL Extremities: Yes: WNL Edema: No Peripheral Pulses WNL: Yes Integumentary: Yes: WNL Neurological: Yes: WNL, Alert, Oriented ...Motor Strength: WNL Psychiatric: Yes: WNL, Alert, Oriented Labs: NOTED CT CHEST REVIEWED Had RT 3 years ago for enlarging right sided mass presumed to be neoplastic Problem List - Problems (1) Chronic back pain Code(s): M54.9 - DORSALGIA, UNSPECIFIED; G89.29 - OTHER CHRONIC PAIN (2) HTN (hypertension) Code(s): I10 - ESSENTIAL (PRIMARY) HYPERTENSION (3) Pneumonia Code(s): J18.9 - PNEUMONIA, UNSPECIFIED ORGANISM (4) COPD (chronic obstructive pulmonary disease) Code(s): J44.9 - CHRONIC OBSTRUCTIVE PULMONARY DISEASE, UNSPECIFIED (5) Compression fracture of lumbar spine, non-traumatic Code(s): M48.56XA - COLLAPSED VERTEBRA, NEC, LUMBAR REGION, INIT (6) Fracture, rib Code(s): S22.39XA - FRACTURE OF ONE RIB, UNSP SIDE, INIT FOR CLOS FX Qualifiers: Encounter type: initial encounter Rib fracture type: single rib Fracture type: closed Laterality: unspecified laterality Qualified Code(s): S22.39XA - Fracture of one rib, unspecified side, initial encounter for closed fracture (7) Mass of right lung Code(s): R91.8 - OTHER NONSPECIFIC ABNORMAL FINDING OF LUNG FIELD ABX per ID Supplemental O2 as needed BD TX PRN Monitor off systemic steroids for now VTE prophylaxis Urine antigen Bone scan Have changed to Roxicodone 5mg Q6 prn MRI on hold for now Will follow Rizwana SANTIZO MD
[2019-10-11] MEDS: LIDOCAINE 5% TOPICAL PATCH TP SCH (10:56)
[2019-10-11] MEDS: oxyCODONE HCL 5 MG TABLET PO PRN ×2 (10:57→16:52)
[2019-10-11] MEDS: ENOXAPARIN NA (PORCINE) 30 MG/0.3 ML DISP.SYRIN SQ SCH (10:57)
--- NOTE | 2019-10-11 12:30 | PN ---
Progress Note, Physician History of Present Illness: PULMONARY NOTES APPRECIATED PT WITH APPARENTLY KNOWN LUNG MALIGNANCY SEATED IN BED NO PAIN AT REST BUT REPORTS R CHEST/FLANK PAIN WITH MOVEMENT DENIES DYSPNEA/ COUGH/ SPUTUM/ HEMOPTYSIS NO C/O FEVER/ CHILLS - Current Medication List Current Medications: Active Medications Acetaminophen (Tylenol -) 1,000 mg PO Q6H PRN PRN Reason: FEVER PAIN LEVEL 1-5 Last Admin: 10/10/19 12:08 Dose: 1,000 mg Documented by: Aspirin (Asa -) 81 mg PO DAILY [facility] Last Admin: 10/11/19 09:39 Dose: 81 mg Documented by: Docusate Sodium (Colace -) 100 mg PO TID [facility] Last Admin: 10/11/19 06:10 Dose: 100 mg Documented by: Enoxaparin Sodium (Lovenox -) 30 mg SQ DAILY [facility] Last Admin: 10/11/19 10:57 Dose: 30 mg Documented by: Ceftriaxone Sodium 1 gm/ (Dextrose) 50 mls @ 100 mls/hr IVPB DAILY [facility]; Protocol Last Admin: 10/11/19 09:39 Dose: 100 mls/hr Documented by: Azithromycin (Zithromax 500mg Ivpb (Pre-Docked)) 500 mg in 250 mls @ 250 mls/hr IVPB DAILY [facility] Last Admin: 10/11/19 09:40 Dose: 250 mls/hr Documented by: Lidocaine (Lidoderm Patch -) 1 patch TP DAILY [facility] Last Admin: 10/11/19 10:56 Dose: 1 patch Documented by: Metoprolol Tartrate (Lopressor -) 50 mg PO DAILY [facility] Last Admin: 10/11/19 09:39 Dose: 50 mg Documented by: Miscellaneous (Lidoderm Patch Removal) 1 each MC DAILY@2200 [facility] Oxycodone HCl (Roxicodone -) 5 mg PO Q6H PRN PRN Reason: PAIN LEVEL 4 - 6 Last Admin: 10/11/19 10:57 Dose: 5 mg Documented by: Umeclidinium/Vilanterol (Anoro Ellipta 62.5-25 Mcg Inh) 1 puff IH DAILY [facility] Last Admin: 10/11/19 09:48 Dose: 1 puff Documented by: - Objective Vital Signs: Vital Signs Temperature 98.0 F 10/11/19 08:45 Pulse Rate 80 10/11/19 08:45 Respiratory Rate 18 07/24/20 08:45 Blood Pressure 113/66 10/11/19 08:45 O2 Sat by Pulse Oximetry (%) 96 10/11/19 08:45 Constitutional: Yes: No Distress Eyes: Yes: Conjunctiva Clear Cardiovascular: Yes: Regular Rate and Rhythm, S1, S2 Respiratory: Yes: Diminished Gastrointestinal: Yes: Normal Bowel Sounds, Soft. No: Tenderness Edema: No Labs: CBC, BMP 10/10/19 08:17 10/10/19 08:17 Assessment/Plan PNEUMONIA ? COMMUNITY ACQUIRED/ ATYPICAL ? POST OBSTRUCTIVE COPD HX VERTEBRAL COMPRESSION FRACTURES/ OLD RIB FRACTURES CONTINUE EMPIRIC ZITHROMAX/ CEFTRIAXONE PAIN MGT
[2019-10-11] MEDS: LIDOCAINE PATCH REMOVAL MC SCH (21:27)
[2019-10-12] MEDS: oxyCODONE HCL 5 MG TABLET PO PRN ×4 (01:59→22:05)
[2019-10-12] MEDS: DOCUSATE SODIUM 100 MG CAPSULE (FP) PO SCH ×3 (06:51→22:05)
[2019-10-12] MEDS ORDERED: cefTRIAXone SODIUM 1 GM VIAL ONE (08:19)
[2019-10-12] MEDS ORDERED: DEXTROSE 5%-WATER - 50 ML IVPB ONE (08:19)
[2019-10-12] MEDS: ASPIRIN 81 MG CHEWABLE TABLETS PO SCH ×2 (08:25→09:00)
[2019-10-12] MEDS: ENOXAPARIN NA (PORCINE) 30 MG/0.3 ML DISP.SYRIN SQ SCH ×2 (08:26→09:00)
[2019-10-12] MEDS: METOPROLOL TARTRATE 50 MG TABLET (FP) PO SCH ×2 (08:26→09:00)
[2019-10-12] MEDS: LIDOCAINE 5% TOPICAL PATCH TP SCH ×2 (08:27→09:00)
[2019-10-12 08:39] LABS: ALBUMIN 2.8 g/dl (3.4-5.0); BILIRUBIN,TOTAL 0.5 mg/dL (0.2-1); BLOOD UREA NITROGEN 22.8 mg/dL (7-18); CALCIUM 8.6 mg/dL (8.5-10.1); TOT PROT 6.2 g/dl (6.4-8.2)
[2019-10-12] MEDS: AZITHROMYCIN IVPB 500 MG/250 ML BAG IVPB SCH (09:00)
[2019-10-12] MEDS: CEFTRIAXONE 1 GM in DEXTROSE 5%-WATER - 50 ML IVPB SCH (09:01)
[2019-10-12] MEDS: UMECLIDINIUM/VILANTEROL (ANORO) 62.5/25 MCG INHALER IH SCH (09:04)
--- NOTE | 2019-10-12 09:28 | PN ---
Progress Note, Physician Chief Complaint: Pneumonia Chest pain History of Present Illness: NAD Pain is improved with oxycodone Denies any SOB - Current Medication List Current Medications: Active Medications Acetaminophen (Tylenol -) 1,000 mg PO Q6H PRN PRN Reason: FEVER PAIN LEVEL 1-5 Last Admin: 10/10/19 12:08 Dose: 1,000 mg Documented by: Aspirin (Asa -) 81 mg PO DAILY [facility] Last Admin: 10/12/19 08:25 Dose: 81 mg Documented by: Docusate Sodium (Colace -) 100 mg PO TID [facility] Last Admin: 10/12/19 06:51 Dose: 100 mg Documented by: Enoxaparin Sodium (Lovenox -) 30 mg SQ DAILY [facility] Last Admin: 10/12/19 08:26 Dose: 30 mg Documented by: Ceftriaxone Sodium 1 gm/ (Dextrose) 50 mls @ 100 mls/hr IVPB DAILY [facility]; Protocol Last Admin: 10/12/19 09:01 Dose: 100 mls/hr Documented by: Azithromycin (Zithromax 500mg Ivpb (Pre-Docked)) 500 mg in 250 mls @ 250 mls/hr IVPB DAILY [facility] Last Admin: 10/12/19 09:00 Dose: 250 mls/hr Documented by: Lidocaine (Lidoderm Patch -) 1 patch TP DAILY [facility] Last Admin: 10/12/19 08:27 Dose: 1 patch Documented by: Metoprolol Tartrate (Lopressor -) 50 mg PO DAILY [facility] Last Admin: 10/12/19 08:26 Dose: 50 mg Documented by: Miscellaneous (Lidoderm Patch Removal) 1 each MC DAILY@2200 [facility] Last Admin: 10/11/19 21:27 Dose: 1 each Documented by: Oxycodone HCl (Roxicodone -) 5 mg PO Q6H PRN PRN Reason: PAIN LEVEL 4 - 6 Last Admin: 10/12/19 08:26 Dose: 5 mg Documented by: Umeclidinium/Vilanterol (Anoro Ellipta 62.5-25 Mcg Inh) 1 puff IH DAILY [facility] Last Admin: 10/12/19 09:04 Dose: 1 puff Documented by: - Objective Vital Signs: Vital Signs Temperature 98.5 F 10/12/19 08:20 Pulse Rate 85 10/12/19 08:20 Respiratory Rate 18 10/12/19 08:20 Blood Pressure 163/82 10/12/19 08:20 O2 Sat by Pulse Oximetry (%) 97 10/12/19 08:20 Constitutional: Yes: No Distress, Calm, Cachectic Cardiovascular: Yes: Regular Rate and Rhythm Respiratory: Yes: Regular, Diminished (BLL) Gastrointestinal: Yes: Normal Bowel Sounds, Soft Genitourinary: Yes: WNL Musculoskeletal: Yes: Muscle Weakness Extremities: Yes: WNL Edema: No Peripheral Pulses WNL: Yes Neurological: Yes: Alert, Oriented Psychiatric: Yes: Alert, Oriented Labs: CBC, BMP 10/12/19 07:06 10/12/19 07:06 Problem List - Problems (1) Lung cancer Assessment/Plan: -Previously known -Pulmonary on board Problems reviewed: Yes Code(s): C34.90 - MALIGNANT NEOPLASM OF UNSP PART OF UNSP BRONCHUS OR LUNG (2) Pneumonia Assessment/Plan: -Blood Cultures pending -Urine Legionella-negative -Afebrile -Pulmonary consult -ID consult -IV abx -Chest CT reviewed- consolidations/atelectasis both bases R > L, with a small R- pleural effusion -Continue Ceftriaxone, Azithromycin Problems reviewed: Yes Code(s): J18.9 - PNEUMONIA, UNSPECIFIED ORGANISM (3) COPD (chronic obstructive pulmonary disease) Problems reviewed: Yes Code(s): J44.9 - CHRONIC OBSTRUCTIVE PULMONARY DISEASE, UNSPECIFIED (4) Fracture, rib Assessment/Plan: -Pain management -Chronic fx Problems reviewed: Yes Code(s): S22.39XA - FRACTURE OF ONE RIB, UNSP SIDE, INIT FOR CLOS FX Qualifiers: Encounter type: initial encounter Rib fracture type: single rib Fracture type: closed Laterality: unspecified laterality Qualified Code(s): S22.39XA - Fracture of one rib, unspecified side, initial encounter for closed fracture Assessment/Plan See problem list
--- NOTE | 2019-10-12 11:47 | PN ---
Progress Note (short form) - Note Progress Note: PULMONARY SPOKE WITH DAUGHTER IMPROVED PAIN SCALE VSS/AFEBRILE RESTING IN BED Constitutional: Yes: No Distress, Calm, Thin Eyes: Yes: Conjunctiva Clear, EOM Intact HENT: Yes: Atraumatic, Normocephalic Neck: Yes: Supple, Trachea Midline Cardiovascular: Yes: Regular Rate and Rhythm Respiratory: Yes: Cough, Diminished, On Nasal O2, Rhonchi, SOB on Exertion. No: Accessory Muscle Use, Rales, SOB, Stridor, Tachypnea, Wheezes ...Inspection: Yes: WNL ...Clubbing: No Gastrointestinal: Yes: Normal Bowel Sounds, Soft Renal/: Yes: WNL Musculoskeletal: Yes: WNL Extremities: Yes: WNL Edema: No Peripheral Pulses WNL: Yes Integumentary: Yes: WNL Neurological: Yes: WNL, Alert, Oriented ...Motor Strength: WNL Psychiatric: Yes: WNL, Alert, Oriented Labs: NOTED CT CHEST REVIEWED Had RT 3 years ago for enlarging right sided mass presumed to be neoplastic Problem List - Problems (1) Chronic back pain Code(s): M54.9 - DORSALGIA, UNSPECIFIED; G89.29 - OTHER CHRONIC PAIN (2) HTN (hypertension) Code(s): I10 - ESSENTIAL (PRIMARY) HYPERTENSION (3) Pneumonia Code(s): J18.9 - PNEUMONIA, UNSPECIFIED ORGANISM (4) COPD (chronic obstructive pulmonary disease) Code(s): J44.9 - CHRONIC OBSTRUCTIVE PULMONARY DISEASE, UNSPECIFIED (5) Compression fracture of lumbar spine, non-traumatic Code(s): M48.56XA - COLLAPSED VERTEBRA, NEC, LUMBAR REGION, INIT (6) Fracture, rib Code(s): S22.39XA - FRACTURE OF ONE RIB, UNSP SIDE, INIT FOR CLOS FX Qualifiers: Encounter type: initial encounter Rib fracture type: single rib Fracture type: closed Laterality: unspecified laterality Qualified Code(s): S22.39XA - Fracture of one rib, unspecified side, initial encounter for closed fracture (7) Mass of right lung Code(s): R91.8 - OTHER NONSPECIFIC ABNORMAL FINDING OF LUNG FIELD ABX per ID Supplemental O2 as needed BD TX PRN Monitor off systemic steroids for now VTE prophylaxis Urine antigen Bone scan Have changed to Roxicodone 5mg Q6 prn MRI on hold for now Will follow Rizwana SANTIZO MD
[2019-10-12 12:01] LABS: BASO % 0.6 % (0-2.0); EOS % 1.6 % (0-4.5); HEMATOCRIT 34.4 % (32.4-45.2); HEMOGLOBIN 11.4 GM/dL (10.7-15.3); LYMPH % 13.7 % (8-40); MCH 32.9 pg (25.7-33.7); MCHC 33.2 g/dl (32.0-36.0); MEAN CELL VOLUME 98.9 fl (80-96); MEAN PLT VOLUME 7.3 fl (7.5-11.1); MONO % 8.8 % (3.8-10.2); NEUT % 75.3 % (42.8-82.8); PLATELET COUNT 498 K/MM3 (134-434); RBC 3.48 M/mm3 (3.60-5.2); RDW 12.8 % (11.6-15.6); WHITE BLOOD COUNT 10.1 K/mm3 (4.0-10.0)
[2019-10-12] MEDS: LIDOCAINE PATCH REMOVAL MC SCH (22:06)
[2019-10-13] MEDS: DOCUSATE SODIUM 100 MG CAPSULE (FP) PO SCH ×3 (06:42→22:06)
--- NOTE | 2019-10-13 08:14 | PN ---
Progress Note, Physician Chief Complaint: Pneumonia Chest pain History of Present Illness: NAD Pain is improved with oxycodone Denies any SOB Working with Physical therapy - Current Medication List Current Medications: Active Medications Acetaminophen (Tylenol -) 1,000 mg PO Q6H PRN PRN Reason: FEVER PAIN LEVEL 1-5 Last Admin: 10/10/19 12:08 Dose: 1,000 mg Documented by: Aspirin (Asa -) 81 mg PO DAILY [facility] Last Admin: 10/12/19 09:00 Dose: Not Given Documented by: Docusate Sodium (Colace -) 100 mg PO TID [facility] Last Admin: 10/13/19 06:42 Dose: Not Given Documented by: Enoxaparin Sodium (Lovenox -) 30 mg SQ DAILY [facility] Last Admin: 10/12/19 09:00 Dose: Not Given Documented by: Ceftriaxone Sodium 1 gm/ (Dextrose) 50 mls @ 100 mls/hr IVPB DAILY [facility]; Protoc ol Last Admin: 10/12/19 09:01 Dose: 100 mls/hr Documented by: Azithromycin (Zithromax 500mg Ivpb (Pre-Docked)) 500 mg in 250 mls @ 250 mls/hr IVPB DAILY [facility] Last Admin: 10/12/19 09:00 Dose: 250 mls/hr Documented by: Lidocaine (Lidoderm Patch -) 1 patch TP DAILY [facility] Last Admin: 10/12/19 09:00 Dose: Not Given Documented by: Metoprolol Tartrate (Lopressor -) 50 mg PO DAILY [facility] Last Admin: 10/12/19 09:00 Dose: Not Given Documented by: Miscellaneous (Lidoderm Patch Removal) 1 each MC DAILY@2200 [facility] Last Admin: 10/12/19 22:06 Dose: 1 each Documented by: Oxycodone HCl (Roxicodone -) 5 mg PO Q6H PRN PRN Reason: PAIN LEVEL 4 - 6 Last Admin: 10/12/19 22:05 Dose: 5 mg Documented by: Umeclidinium/Vilanterol (Anoro Ellipta 62.5-25 Mcg Inh) 1 puff IH DAILY [facility] Last Admin: 10/12/19 09:04 Dose: 1 puff Documented by: - Objective Vital Signs: Vital Signs Temperature 99.5 F 10/13/19 06:00 Pulse Rate 92 H 07/26/20 06:00 Respiratory Rate 18 10/13/19 06:00 Blood Pressure 160/83 10/13/19 06:00 O2 Sat by Pulse Oximetry (%) 94 L 10/13/19 06:00 Constitutional: Yes: No Distress, Calm, Cachectic Cardiovascular: Yes: Regular Rate and Rhythm Respiratory: Yes: Regular, CTA Bilaterally Gastrointestinal: Yes: Normal Bowel Sounds, Soft Genitourinary: Yes: WNL Musculoskeletal: Yes: Muscle Weakness Extremities: Yes: WNL Edema: No Peripheral Pulses WNL: Yes Neurological: Yes: Alert, Oriented Psychiatric: Yes: Alert, Oriented Labs: CBC, BMP 10/12/19 10:58 10/12/19 07:06 Problem List - Problems (1) Lung cancer Assessment/Plan: -Previously known -Pulmonary on board Problems reviewed: Yes Code(s): C34.90 - MALIGNANT NEOPLASM OF UNSP PART OF UNSP BRONCHUS OR LUNG (2) Pneumonia Assessment/Plan: -Blood Cultures pending -Urine Legionella-negative -Afebrile -Pulmonary consult -ID consult -IV abx -Chest CT reviewed- consolidations/atelectasis both bases R > L, with a small R- pleural effusion -Continue Ceftriaxone, Azithromycin Problems reviewed: Yes Code(s): J18.9 - PNEUMONIA, UNSPECIFIED ORGANISM (3) COPD (chronic obstructive pulmonary disease) Problems reviewed: Yes Code(s): J44.9 - CHRONIC OBSTRUCTIVE PULMONARY DISEASE, UNSPECIFIED (4) Fracture, rib Assessment/Plan: -Pain management -Chronic fx Problems reviewed: Yes Code(s): S22.39XA - FRACTURE OF ONE RIB, UNSP SIDE, INIT FOR CLOS FX Qualifiers: Encounter type: initial encounter Rib fracture type: single rib Fracture type: closed Laterality: unspecified laterality Qualified Code(s): S22.39XA - Fracture of one rib, unspecified side, initial encounter for closed fracture Assessment/Plan See problem list Will need SNF placement
[2019-10-13] MEDS ORDERED: cefTRIAXone SODIUM 1 GM VIAL ONE (10:50)
[2019-10-13] MEDS ORDERED: DEXTROSE 5%-WATER - 50 ML IVPB ONE (10:50)
[2019-10-13] MEDS: ENOXAPARIN NA (PORCINE) 30 MG/0.3 ML DISP.SYRIN SQ SCH (10:55)
[2019-10-13] MEDS: ASPIRIN 81 MG CHEWABLE TABLETS PO SCH (10:55)
[2019-10-13] MEDS: oxyCODONE HCL 5 MG TABLET PO PRN ×2 (10:55→22:06)
[2019-10-13] MEDS: LIDOCAINE 5% TOPICAL PATCH TP SCH (10:55)
[2019-10-13] MEDS: AZITHROMYCIN IVPB 500 MG/250 ML BAG IVPB SCH (10:56)
[2019-10-13] MEDS: CEFTRIAXONE 1 GM in DEXTROSE 5%-WATER - 50 ML IVPB SCH (10:56)
[2019-10-13] MEDS: UMECLIDINIUM/VILANTEROL (ANORO) 62.5/25 MCG INHALER IH SCH (11:00)
[2019-10-13] MEDS: METOPROLOL TARTRATE 50 MG TABLET (FP) PO SCH (11:00)
--- NOTE | 2019-10-13 11:17 | PN ---
Progress Note (short form) - Note Progress Note: PULMONARY VSS/LOW GRADE TERMP RESTING IN BED/PAIN IS MORE INTENSE THIS AM Constitutional: Yes: No Distress, Calm, Thin Eyes: Yes: Conjunctiva Clear, EOM Intact HENT: Yes: Atraumatic, Normocephalic Neck: Yes: Supple, Trachea Midline Cardiovascular: Yes: Regular Rate and Rhythm Respiratory: Yes: Cough, Diminished, On Nasal O2, Rhonchi, SOB on Exertion. No: Accessory Muscle Use, Rales, SOB, Stridor, Tachypnea, Wheezes ...Inspection: Yes: WNL ...Clubbing: No Gastrointestinal: Yes: Normal Bowel Sounds, Soft Renal/: Yes: WNL Musculoskeletal: Yes: WNL Extremities: Yes: WNL Edema: No Peripheral Pulses WNL: Yes Integumentary: Yes: WNL Neurological: Yes: WNL, Alert, Oriented ...Motor Strength: WNL Psychiatric: Yes: WNL, Alert, Oriented Labs: NOTED CT CHEST REVIEWED Had RT 3 years ago for enlarging right sided mass presumed to be neoplastic Problem List - Problems (1) Chronic back pain Code(s): M54.9 - DORSALGIA, UNSPECIFIED; G89.29 - OTHER CHRONIC PAIN (2) HTN (hypertension) Code(s): I10 - ESSENTIAL (PRIMARY) HYPERTENSION (3) Pneumonia Code(s): J18.9 - PNEUMONIA, UNSPECIFIED ORGANISM (4) COPD (chronic obstructive pulmonary disease) Code(s): J44.9 - CHRONIC OBSTRUCTIVE PULMONARY DISEASE, UNSPECIFIED (5) Compression fracture of lumbar spine, non-traumatic Code(s): M48.56XA - COLLAPSED VERTEBRA, NEC, LUMBAR REGION, INIT (6) Fracture, rib Code(s): S22.39XA - FRACTURE OF ONE RIB, UNSP SIDE, INIT FOR CLOS FX Qualifiers: Encounter type: initial encounter Rib fracture type: single rib Fracture type: closed Laterality: unspecified laterality Qualified Code(s): S22.39XA - Fracture of one rib, unspecified side, initial encounter for closed fracture (7) Mass of right lung Code(s): R91.8 - OTHER NONSPECIFIC ABNORMAL FINDING OF LUNG FIELD ABX per ID Supplemental O2 as needed BD TX PRN Monitor off systemic steroids for now VTE prophylaxis Urine antigen is negative/blood cultures no growth Bone scan pending Have changed to Roxicodone 5mg Q6 prn MRI on hold for now Will follow Rizwana SANTIZO MD
[2019-10-13] MEDS: FAMOTIDINE 20 MG TABLET PO SCH (15:15)
[2019-10-13] MEDS: LIDOCAINE PATCH REMOVAL MC SCH (22:10)
[2019-10-14] MEDS: DOCUSATE SODIUM 100 MG CAPSULE (FP) PO SCH ×3 (05:57→22:04)
[2019-10-14] MEDS: oxyCODONE HCL 5 MG TABLET PO PRN ×3 (05:57→22:04)
--- NOTE | 2019-10-14 08:46 | PN ---
Progress Note, Physician - Current Medication List Current Medications: Active Medications Acetaminophen (Tylenol -) 1,000 mg PO Q6H PRN PRN Reason: FEVER PAIN LEVEL 1-5 Last Admin: 10/10/19 12:08 Dose: 1,000 mg Documented by: Aspirin (Asa -) 81 mg PO DAILY [facility] Last Admin: 10/13/19 10:55 Dose: 81 mg Documented by: Docusate Sodium (Colace -) 100 mg PO TID [facility] Last Admin: 10/14/19 05:57 Dose: 100 mg Documented by: Enoxaparin Sodium (Lovenox -) 30 mg SQ DAILY [facility] Last Admin: 10/13/19 10:55 Dose: 30 mg Documented by: Famotidine (Pepcid -) 20 mg PO DAILY [facility] Last Admin: 10/13/19 15:15 Dose: 20 mg Documented by: Ceftriaxone Sodium 1 gm/ (Dextrose) 50 mls @ 100 mls/hr IVPB DAILY [facility]; Protoc ol Last Admin: 10/13/19 10:56 Dose: 100 mls/hr Documented by: Azithromycin (Zithromax 500mg Ivpb (Pre-Docked)) 500 mg in 250 mls @ 250 mls/hr IVPB DAILY [facility] Last Admin: 10/13/19 10:56 Dose: 250 mls/hr Documented by: Lidocaine (Lidoderm Patch -) 1 patch TP DAILY [facility] Last Admin: 10/13/19 10:55 Dose: 1 patch Documented by: Metoprolol Tartrate (Lopressor -) 50 mg PO DAILY [facility] Last Admin: 10/13/19 11:00 Dose: 50 mg Documented by: Miscellaneous (Lidoderm Patch Removal) 1 each MC DAILY@2200 [facility] Last Admin: 10/13/19 22:10 Dose: 1 each Documented by: Oxycodone HCl (Roxicodone -) 5 mg PO Q6H PRN PRN Reason: PAIN LEVEL 4 - 6 Last Admin: 10/14/19 05:57 Dose: 5 mg Documented by: Umeclidinium/Vilanterol (Anoro Ellipta 62.5-25 Mcg Inh) 1 puff IH DAILY [facility] Last Admin: 10/13/19 11:00 Dose: 1 puff Documented by: - Objective Vital Signs: Vital Signs Temperature 99.1 F 10/14/19 05:25 Pulse Rate 88 10/14/19 05:25 Respiratory Rate 18 10/14/19 05:25 Blood Pressure 160/90 10/14/19 05:25 O2 Sat by Pulse Oximetry (%) 98 10/14/19 05:25 Cardiovascular: Yes: S1, S2 Respiratory: Yes: Regular, CTA Bilaterally, Diminished Gastrointestinal: Yes: Normal Bowel Sounds, Soft Labs: CBC, BMP 10/12/19 10:58 10/12/19 07:06 Problem List - Problems (1) Pneumonia Code(s): J18.9 - PNEUMONIA, UNSPECIFIED ORGANISM (2) COPD (chronic obstructive pulmonary disease) Code(s): J44.9 - CHRONIC OBSTRUCTIVE PULMONARY DISEASE, UNSPECIFIED (3) HTN (hypertension) Code(s): I10 - ESSENTIAL (PRIMARY) HYPERTENSION (4) Fracture, rib Code(s): S22.39XA - FRACTURE OF ONE RIB, UNSP SIDE, INIT FOR CLOS FX Qualifiers: Encounter type: initial encounter Rib fracture type: single rib Fracture type: closed Laterality: unspecified laterality Qualified Code(s): S22.39XA - Fracture of one rib, unspecified side, initial encounter for closed fracture (5) Lung cancer Code(s): C34.90 - MALIGNANT NEOPLASM OF UNSP PART OF UNSP BRONCHUS OR LUNG (6) Compression fracture of body of thoracic vertebra Code(s): S22.000A - WEDGE COMPRESSION FRACTURE OF UNSP THORACIC VERTEBRA, INIT Assessment/Plan - Problems (1) Lung cancer Assessment/Plan: -Previously known -Pulmonary on board Problems reviewed: Yes Code(s): C34.90 - MALIGNANT NEOPLASM OF UNSP PART OF UNSP BRONCHUS OR LUNG (2) Pneumonia Assessment/Plan: -Blood Cultures pending -Urine Legionella-negative -Afebrile -Pulmonary consult -ID consult -IV abx -Chest CT reviewed- consolidations/atelectasis both bases R > L, with a small R- pleural effusion -Continue Ceftriaxone, Azithromycin Problems reviewed: Yes Code(s): J18.9 - PNEUMONIA, UNSPECIFIED ORGANISM (3) Back Pain Problems reviewed: Yes Pain control Bone Scan (4) Fracture, rib Assessment/Plan: -Pain management -Chronic fx Problems reviewed: Yes Code(s): S22.39XA - FRACTURE OF ONE RIB, UNSP SIDE, INIT FOR CLOS FX Qualifiers: Encounter type: initial encounter Rib fracture type: single rib Fracture type: closed Laterality: unspecified laterality Qualified Code(s): S22.39XA - Fracture of one rib, unspecified side, initial encounter for closed fracture Will need SNF placement
[2019-10-14] MEDS ORDERED: PT OWN MED DRAWER 7, Y5N ONE (09:15)
[2019-10-14] MEDS: LIDOCAINE 5% TOPICAL PATCH TP SCH (09:17)
[2019-10-14] MEDS: ACETAMINOPHEN 500 MG TABLET (FP) PO PRN (09:22)
[2019-10-14] MEDS: ENOXAPARIN NA (PORCINE) 30 MG/0.3 ML DISP.SYRIN SQ SCH (09:23)
[2019-10-14] MEDS: METOPROLOL TARTRATE 50 MG TABLET (FP) PO SCH (09:23)
[2019-10-14] MEDS: ASPIRIN 81 MG CHEWABLE TABLETS PO SCH (09:23)
[2019-10-14] MEDS: UMECLIDINIUM/VILANTEROL (ANORO) 62.5/25 MCG INHALER IH SCH (09:23)
[2019-10-14] MEDS: FAMOTIDINE 20 MG TABLET PO SCH (09:23)
[2019-10-14] MEDS ORDERED: DEXTROSE 5%-WATER - 50 ML IVPB ONE (10:18)
[2019-10-14] MEDS ORDERED: cefTRIAXone SODIUM 1 GM VIAL ONE (10:18)
[2019-10-14] MEDS: CEFTRIAXONE 1 GM in DEXTROSE 5%-WATER - 50 ML IVPB SCH (10:21)
--- NOTE | 2019-10-14 10:30 | PN ---
Progress Note (short form) - Note Progress Note: PULMONARY c/o pain around waist. No shortness of breath, cough. Vital Signs Period Temp Pulse Resp BP Sys/Anthony Pulse Ox Last 24 Hr 97.8 F-99.1 F 78-93 18-20 112-160/58-90 93-98 Gen: NAD at rest Heart: RRR Lung: decreased breath sounds at the bases Abd: soft, nontender Ext: no edema CBC, BMP 10/12/19 10:58 10/12/19 07:06 Active Medications Acetaminophen (Tylenol -) 1,000 mg PO Q6H PRN PRN Reason: FEVER PAIN LEVEL 1-5 Last Admin: 10/14/19 09:22 Dose: 1,000 mg Documented by: Aspirin (Asa -) 81 mg PO DAILY [facility] Last Admin: 10/14/19 09:23 Dose: 81 mg Documented by: Docusate Sodium (Colace -) 100 mg PO TID [facility] Last Admin: 10/14/19 05:57 Dose: 100 mg Documented by: Enoxaparin Sodium (Lovenox -) 30 mg SQ DAILY [facility] Last Admin: 10/14/19 09:23 Dose: 30 mg Documented by: Famotidine (Pepcid -) 20 mg PO DAILY [facility] Last Admin: 10/14/19 09:23 Dose: 20 mg Documented by: Ceftriaxone Sodium 1 gm/ (Dextrose) 50 mls @ 100 mls/hr IVPB DAILY [facility]; Protocol Last Admin: 10/14/19 10:21 Dose: 100 mls/hr Documented by: Azithromycin (Zithromax 500mg Ivpb (Pre-Docked)) 500 mg in 250 mls @ 250 mls/hr IVPB DAILY [facility] Last Admin: 10/13/19 10:56 Dose: 250 mls/hr Documented by: Lidocaine (Lidoderm Patch -) 1 patch TP DAILY [facility] Last Admin: 10/14/19 09:17 Dose: 1 patch Documented by: Metoprolol Tartrate (Lopressor -) 50 mg PO DAILY [facility] Last Admin: 10/14/19 09:23 Dose: 50 mg Documented by: Miscellaneous (Lidoderm Patch Removal) 1 each MC DAILY@2200 [facility] Last Admin: 10/13/19 22:10 Dose: 1 each Documented by: Oxycodone HCl (Roxicodone -) 5 mg PO Q6H PRN PRN Reason: PAIN LEVEL 4 - 6 Last Admin: 10/14/19 05:57 Dose: 5 mg Documented by: Umeclidinium/Vilanterol (Anoro Ellipta 62.5-25 Mcg Inh) 1 puff IH DAILY [facility] Last Admin: 10/14/19 09:23 Dose: 1 puff Documented by: A/P Pneumonia Lung Cancer COPD HTN Chronic Rib Fractures - continue antibiotics - pain control - f/u bone scan - inhaled bronchodilators - O2 to keep SpO2 >90% - DVT prophylaxis
[2019-10-14] MEDS: AZITHROMYCIN IVPB 500 MG/250 ML BAG IVPB SCH (10:54)
--- NOTE | 2019-10-14 12:49 | PN ---
Progress Note, Physician History of Present Illness: SEATED IN BED NO PAIN AT REST BUT REPORTS R CHEST/FLANK PAIN WITH MOVEMENT DENIES DYSPNEA/ COUGH/ SPUTUM/ HEMOPTYSIS NO C/O FEVER/ CHILLS - Current Medication List Current Medications: Active Medications Acetaminophen (Tylenol -) 1,000 mg PO Q6H PRN PRN Reason: FEVER PAIN LEVEL 1-5 Last Admin: 10/14/19 09:22 Dose: 1,000 mg Documented by: Aspirin (Asa -) 81 mg PO DAILY [facility] Last Admin: 10/14/19 09:23 Dose: 81 mg Documented by: Docusate Sodium (Colace -) 100 mg PO TID [facility] Last Admin: 10/14/19 05:57 Dose: 100 mg Documented by: Enoxaparin Sodium (Lovenox -) 30 mg SQ DAILY [facility] Last Admin: 10/14/19 09:23 Dose: 30 mg Documented by: Famotidine (Pepcid -) 20 mg PO DAILY [facility] Last Admin: 10/14/19 09:23 Dose: 20 mg Documented by: Ceftriaxone Sodium 1 gm/ (Dextrose) 50 mls @ 100 mls/hr IVPB DAILY [facility]; Protocol Last Admin: 10/14/19 10:21 Dose: 100 mls/hr Documented by: Azithromycin (Zithromax 500mg Ivpb (Pre-Docked)) 500 mg in 250 mls @ 250 mls/hr IVPB DAILY [facility] Last Admin: 10/14/19 10:54 Dose: 250 mls/hr Documented by: Lidocaine (Lidoderm Patch -) 1 patch TP DAILY [facility] Last Admin: 10/14/19 09:17 Dose: 1 patch Documented by: Metoprolol Tartrate (Lopressor -) 50 mg PO DAILY [facility] Last Admin: 10/14/19 09:23 Dose: 50 mg Documented by: Miscellaneous (Lidoderm Patch Removal) 1 each MC DAILY@2200 [facility] Last Admin: 10/13/19 22:10 Dose: 1 each Documented by: Oxycodone HCl (Roxicodone -) 5 mg PO Q6H PRN PRN Reason: PAIN LEVEL 4 - 6 Last Admin: 10/14/19 12:40 Dose: 5 mg Documented by: Umeclidinium/Vilanterol (Anoro Ellipta 62.5-25 Mcg Inh) 1 puff IH DAILY [facility] Last Admin: 10/14/19 09:23 Dose: 1 puff Documented by: - Objective Vital Signs: Vital Signs Temperature 98.5 F 10/14/19 10:00 Pulse Rate 93 H 10/14/19 10:00 Respiratory Rate 10/14/19 10:00 Blood Pressure 140/83 10/14/19 10:00 O2 Sat by Pulse Oximetry (%) 93 L 10/14/19 10:00 Constitutional: Yes: No Distress, Thin Cardiovascular: Yes: Regular Rate and Rhythm, S1, S2 Respiratory: Yes: Diminished Gastrointestinal: Yes: Normal Bowel Sounds, Soft. No: Tenderness Edema: No Labs: CBC, BMP 10/12/19 10:58 10/12/19 07:06 Assessment/Plan PNEUMONIA ? COMMUNITY ACQUIRED/ ATYPICAL ? POST OBSTRUCTIVE COPD HX VERTEBRAL COMPRESSION FRACTURES/ OLD RIB FRACTURES CONTINUE EMPIRIC CEFTRIAXONE PAIN MGT
--- NOTE | 2019-10-14 19:04 | CONS ---
PHYSICAL MEDICINE REHABILITATION CONSULTATION DATE OF CONSULTATION: 10/10/2019 REFERRING PHYSICIAN: Nba Ferguson MD HISTORY OF PRESENT ILLNESS: The patient is an 83-year-old woman with past medical history of severe osteoporosis and multiple, chronic compression deformities including L3 and L4 as well as superior endplate L2 and compression deformities of several thoracic vertebra who was admitted with difficulty walking, increasing pain as well as chronic rib fractures. Patient evidently was doing well until about a week and a half ago when she started to develop increasing pain. She went to [facility] where she underwent x-rays of her ribs on October 04, 2019, which showed no definite acute fracture, but there was a right 8th fracture noted laterally, probably chronic and a healed right 5th rib laterally. Patient was discharged home but was unable to ambulate and presented back to the emergency room at [facility] on October 08. CT of the chest showed consolidation bilateral base of lungs, possible right lower lobe infiltrate, stable, left adrenal mass as well as a right upper lobe nodule, which was slightly increased from July of 2015. Patient did undergo a bone scan today, which the results are pending, although on review of images, there is a [id number] area in the thoracic spine, which shows increased uptake. Patient was seen by physical therapy and is able to ambulate short distance today. Ambulating about 10 feet with a rolling walker. Minimum assist of 2. [id number] with minimally assist of 2. Blood work on admission; WBCs slightly elevated at 10.3, hemoglobin 12.4, platelet count elevated at 489. Repeat blood work on October 11 was stable. Patient also had chemistry, which mainly was within normal limits except BUN was elevated at 22 to creatinine 1.0 on admission. Repeat on October 11; BUN elevated at 23, creatinine 1.0, high-normal potassium 5.0, sodium 138. Currently, the patient notes that the pain tends to fluctuate from her lower back and right flank into the midback at times. She has no radicular symptoms such as numbness, tingling in the lower limbs. Her condition was discussed at the bedside also with her daughter visiting from [place]. REVIEW OF PAST MEDICAL AND SURGICAL HISTORY: COPD, hypertension, severe osteoporosis, anemia, chronic rib fractures, chronic back pain. SOCIAL HISTORY: Lived alone in an apartment with 1 flight of steps to enter. Premorbidly, she was independent, ambulatory without assistive device but has recently been ambulating using a straight cane, and she also has a walker, although it does not sound to be safe. Current function as above. REVIEW OF SYSTEMS: No dizziness or lightheadedness. No chest pain. No nausea, vomiting, difficulty swallowing, difficulty chewing. No current shortness of breath but she does note pain in the back with cough or sneezing or with movement such as rolling. No bowel or bladder incontinence or retention. No fever or chills. Again, no numbness or tingling in the upper or lower limbs currently. PHYSICAL EXAMINATION: General: Petite, frail, elderly woman seen lying in bed. She is awake, alert, and cooperative in no acute distress. HEENT: She is normocephalic and atraumatic. Her extraocular muscles appear full. She has no obvious facial weakness. No oral ulcers. Neck: Supple. Extremities: Without any pitting edema or calf tenderness. Skin: Without any rash or breakdown. Neuromuscular: She is awake, alert. Seems fully oriented x3. Fairly good insight into her medical conditions. She has some arthritic changes in her hands but fairly good range of motion and strength throughout her upper limbs. She is tender in the paraspinal muscles of the mid thoracic region mainly on her right more than left side, however, no lower thoracic or lumbar paraspinal tenderness. No gross scoliosis. She has some kyphoplasty noted. Negative straight leg raise test. She has antigravity strength in her hip girdle at least 3+/5 and hip flexion and abduction. She has 4/5 knee extensor and 5/5 dorsiflexor, plantar flexor lying supine in bed. Normal sensation to light touch. No gross arthritic change in the lower limbs. OVERALL IMPRESSION: 1. Deficits in mobility, activities of daily living, multifactorial. 2. Mid and low back pain with history of multiple chronic thoracic and lumbar compression deformities, rule out new thoracic or lumbar compression fracture. 3. Deconditioning. 4. Possible pneumonia. 5. History of a pelvic fracture on the right, which has healed. 6. Severe osteoporosis. 7. History of skin cancer. 8. Mild leukocytosis. 9. Elevated BUN to creatinine ratio. 10. History of hypertension. 11. History of chronic obstructive pulmonary disease. 12. Chronic right rib fractures as noted above. PLAN/SUGGESTION: 1. Continue physical therapy at the bedside including mobilization, bed mobility transfers, gait training, strengthening, reconditioning of lower extremities. 2. Out of bed to chair with assistance. 3. Pain control including Lidoderm patch, Tylenol. Avoid narcotics. 4. Lovenox for DVT prophylaxis. 5. Skin precautions. Avoid sacral heel pressure. 6. Case management regarding disposition. Would recommend short-term rehabilitation in a [facility] facility. 7. Check official bone scan once read 8. I have given her my card, and we will follow up as an outpatient to fit her with a thoracolumbar orthosis. Thank you for this referral. JANINA FERRO M.D. [id number] MTDD
[2019-10-14] MEDS: LIDOCAINE PATCH REMOVAL MC SCH (22:04)
[2019-10-15] MEDS: oxyCODONE HCL 5 MG TABLET PO PRN (04:48)
[2019-10-15] MEDS: DOCUSATE SODIUM 100 MG CAPSULE (FP) PO SCH ×3 (05:50→21:32)
[2019-10-15] MEDS ORDERED: DEXTROSE 5%-WATER - 50 ML IVPB ONE (09:51)
[2019-10-15] MEDS ORDERED: cefTRIAXone SODIUM 1 GM VIAL ONE (09:51)
[2019-10-15] MEDS: METOPROLOL TARTRATE 50 MG TABLET (FP) PO SCH (09:59)
[2019-10-15] MEDS: ASPIRIN 81 MG CHEWABLE TABLETS PO SCH (09:59)
[2019-10-15] MEDS: LIDOCAINE 5% TOPICAL PATCH TP SCH (09:59)
[2019-10-15] MEDS: ACETAMINOPHEN 500 MG TABLET (FP) PO PRN ×2 (09:59→17:06)
[2019-10-15] MEDS: ENOXAPARIN NA (PORCINE) 30 MG/0.3 ML DISP.SYRIN SQ SCH (10:00)
[2019-10-15] MEDS: UMECLIDINIUM/VILANTEROL (ANORO) 62.5/25 MCG INHALER IH SCH (10:00)
[2019-10-15] MEDS: FAMOTIDINE 20 MG TABLET PO SCH (10:01)
[2019-10-15] MEDS: CEFTRIAXONE 1 GM in DEXTROSE 5%-WATER - 50 ML IVPB SCH (10:01)
--- NOTE | 2019-10-15 12:10 | PN ---
Progress Note, Physician History of Present Illness: pulmonary alert,comfortable,dyspnea improving,-cp - Current Medication List Current Medications: Active Medications Acetaminophen (Tylenol -) 1,000 mg PO Q6H PRN PRN Reason: FEVER PAIN LEVEL 1-5 Last Admin: 10/15/19 09:59 Dose: 1,000 mg Documented by: Aspirin (Asa -) 81 mg PO DAILY [facility] Last Admin: 10/15/19 09:59 Dose: 81 mg Documented by: Docusate Sodium (Colace -) 100 mg PO TID [facility] Last Admin: 10/15/19 05:50 Dose: Not Given Documented by: Enoxaparin Sodium (Lovenox -) 30 mg SQ DAILY [facility] Last Admin: 10/15/19 10:00 Dose: 30 mg Documented by: Famotidine (Pepcid -) 20 mg PO DAILY [facility] Last Admin: 10/15/19 10:01 Dose: 20 mg Documented by: Ceftriaxone Sodium 1 gm/ (Dextrose) 50 mls @ 100 mls/hr IVPB DAILY [facility]; Protocol Last Admin: 10/15/19 10:01 Dose: 100 mls/hr Documented by: Lidocaine (Lidoderm Patch -) 1 patch TP DAILY [facility] Last Admin: 10/15/19 09:59 Dose: 1 patch Documented by: Metoprolol Tartrate (Lopressor -) 50 mg PO DAILY [facility] Last Admin: 10/15/19 09:59 Dose: 50 mg Documented by: Miscellaneous (Lidoderm Patch Removal) 1 each MC DAILY@2200 [facility] Last Admin: 10/14/19 22:04 Dose: 1 each Documented by: Oxycodone HCl (Roxicodone -) 5 mg PO Q6H PRN PRN Reason: PAIN LEVEL 4 - 6 Last Admin: 10/15/19 04:48 Dose: 5 mg Documented by: Umeclidinium/Vilanterol (Anoro Ellipta 62.5-25 Mcg Inh) 1 puff IH DAILY [facility] Last Admin: 10/15/19 10:00 Dose: 1 puff Documented by: - Objective Vital Signs: Vital Signs Temperature 98.4 F 10/15/19 08:30 Pulse Rate 83 10/15/19 08:30 Respiratory Rate 20 10/15/19 08:30 Blood Pressure 153/73 10/15/19 08:30 O2 Sat by Pulse Oximetry (%) 94 L 10/15/19 08:30 Constitutional: Yes: Calm, Thin Eyes: Yes: WNL HENT: Yes: WNL Neck: Yes: WNL Cardiovascular: Yes: Regular Rate and Rhythm, S1, S2 Respiratory: Yes: Diminished Gastrointestinal: Yes: Normal Bowel Sounds, Soft Extremities: Yes: WNL Edema: No Labs: CBC, BMP 10/12/19 10:58 10/12/19 07:06 Problem List - Problems (1) HTN (hypertension) Code(s): I10 - ESSENTIAL (PRIMARY) HYPERTENSION (2) Lung cancer Code(s): C34.90 - MALIGNANT NEOPLASM OF UNSP PART OF UNSP BRONCHUS OR LUNG (3) Pneumonia Code(s): J18.9 - PNEUMONIA, UNSPECIFIED ORGANISM (4) COPD (chronic obstructive pulmonary disease) Code(s): J44.9 - CHRONIC OBSTRUCTIVE PULMONARY DISEASE, UNSPECIFIED Assessment/Plan A/P Pneumonia Lung Cancer COPD HTN Chronic Rib Fractures - continue antibiotics - pain control - inhaled bronchodilators - O2 to keep SpO2 >90% - DVT prophylaxis DR HARDEN
--- NOTE | 2019-10-15 13:52 | PN ---
Progress Note, Physician Chief Complaint: Pneumonia Chest pain History of Present Illness: NAD, alert and oriented, was OOB to chair for 3 hours today Pain is improved with oxycodone Denies any SOB Doing poorly with Physical therapy - Current Medication List Current Medications: Active Medications Acetaminophen (Tylenol -) 1,000 mg PO Q6H PRN PRN Reason: FEVER PAIN LEVEL 1-5 Last Admin: 10/15/19 09:59 Dose: 1,000 mg Documented by: Aspirin (Asa -) 81 mg PO DAILY [facility] Last Admin: 10/15/19 09:59 Dose: 81 mg Documented by: Docusate Sodium (Colace -) 100 mg PO TID [facility] Last Admin: 10/15/19 13:33 Dose: 100 mg Documented by: Enoxaparin Sodium (Lovenox -) 30 mg SQ DAILY [facility] Last Admin: 10/15/19 10:00 Dose: 30 mg Documented by: Famotidine (Pepcid -) 20 mg PO DAILY [facility] Last Admin: 10/15/19 10:01 Dose: 20 mg Documented by: Ceftriaxone Sodium 1 gm/ (Dextrose) 50 mls @ 100 mls/hr IVPB DAILY [facility]; Protocol Last Admin: 10/15/19 10:01 Dose: 100 mls/hr Documented by: Lidocaine (Lidoderm Patch -) 1 patch TP DAILY [facility] Last Admin: 10/15/19 09:59 Dose: 1 patch Documented by: Metoprolol Tartrate (Lopressor -) 50 mg PO DAILY [facility] Last Admin: 10/15/19 09:59 Dose: 50 mg Documented by: Miscellaneous (Lidoderm Patch Removal) 1 each MC DAILY@2200 [facility] Last Admin: 10/14/19 22:04 Dose: 1 each Documented by: Oxycodone HCl (Roxicodone -) 5 mg PO Q6H PRN PRN Reason: PAIN LEVEL 4 - 6 Last Admin: 10/15/19 04:48 Dose: 5 mg Documented by: Umeclidinium/Vilanterol (Anoro Ellipta 62.5-25 Mcg Inh) 1 puff IH DAILY [facility] Last Admin: 10/15/19 10:00 Dose: 1 puff Documented by: - Objective Vital Signs: Vital Signs Temperature 98.4 F 10/15/19 08:30 Pulse Rate 83 10/15/19 08:30 Respiratory Rate 20 10/15/19 08:30 Blood Pressure 153/73 10/15/19 08:30 O2 Sat by Pulse Oximetry (%) 94 L 10/15/19 08:30 Constitutional: Yes: Well Nourished, No Distress, Calm Cardiovascular: Yes: Regular Rate and Rhythm Respiratory: Yes: Regular, CTA Bilaterally, Diminished (BLL) Gastrointestinal: Yes: Normal Bowel Sounds, Soft Genitourinary: Yes: WNL Musculoskeletal: Yes: Muscle Weakness Extremities: Yes: WNL Edema: No Peripheral Pulses WNL: Yes Neurological: Yes: Alert, Oriented Psychiatric: Yes: Alert, Oriented Labs: CBC, BMP 10/12/19 10:58 10/12/19 07:06 Problem List - Problems (1) Lung cancer Assessment/Plan: -Previously known -Pulmonary on board -Bone scan: 10/14/19 No scintigraphic pattern of osteoblastic bony metastasis. Intense osteoblastic activity at L2 vertebral body corresponding to moderate compression deformity seen on CT of the chest dated October 09, 2019. This could be secondary to senile osteoporosis however underlying neoplastic process cannot be completely excluded. Focal intense uptake in the anterior left fifth rib with corresponding sclerosis seen on CT scan. This could be secondary to chronic posttraumatic changes however early metastatic sclerotic/osteoblastic lesion cannot be completely excluded. Continued close follow-up is recommended. Problems reviewed: Yes Code(s): C34.90 - MALIGNANT NEOPLASM OF UNSP PART OF UNSP BRONCHUS OR LUNG (2) Pneumonia Assessment/Plan: -Blood Cultures pending -Urine Legionella-negative -Afebrile -Pulmonary consult -ID consult -IV abx -Chest CT reviewed- 10/09/19-consolidations/atelectasis both bases R > L, with a small R- pleural effusion -Continue Ceftriaxone Problems reviewed: Yes Code(s): J18.9 - PNEUMONIA, UNSPECIFIED ORGANISM (3) COPD (chronic obstructive pulmonary disease) Problems reviewed: Yes Code(s): J44.9 - CHRONIC OBSTRUCTIVE PULMONARY DISEASE, UNSPECIFIED (4) Fracture, rib Assessment/Plan: -Pain management -Chronic fx Problems reviewed: Yes Code(s): S22.39XA - FRACTURE OF ONE RIB, UNSP SIDE, INIT FOR CLOS FX Qualifiers: Encounter type: initial encounter Rib fracture type: single rib Fracture type: closed Laterality: unspecified laterality Qualified Code(s): S22.39XA - Fracture of one rib, unspecified side, initial encounter for closed fracture Assessment/Plan See problem list Will need SNF placement Left msg for daughter Jayne for pt update and d/c in AM to SNF
--- NOTE | 2019-10-15 15:50 | PN ---
Progress Note, Physician History of Present Illness: SEATED IN BED STILL WITH R CHEST/FLANK PAIN WITH MOVEMENT DENIES DYSPNEA/ COUGH/ SPUTUM/ HEMOPTYSIS NO C/O FEVER/ CHILLS - Current Medication List Current Medications: Active Medications Acetaminophen (Tylenol -) 1,000 mg PO Q6H PRN PRN Reason: FEVER PAIN LEVEL 1-5 Last Admin: 10/15/19 09:59 Dose: 1,000 mg Documented by: Aspirin (Asa -) 81 mg PO DAILY [facility] Last Admin: 10/15/19 09:59 Dose: 81 mg Documented by: Docusate Sodium (Colace -) 100 mg PO TID [facility] Last Admin: 10/15/19 13:33 Dose: 100 mg Documented by: Enoxaparin Sodium (Lovenox -) 30 mg SQ DAILY [facility] Last Admin: 10/15/19 10:00 Dose: 30 mg Documented by: Famotidine (Pepcid -) 20 mg PO DAILY [facility] Last Admin: 10/15/19 10:01 Dose: 20 mg Documented by: Ceftriaxone Sodium 1 gm/ (Dextrose) 50 mls @ 100 mls/hr IVPB DAILY [facility]; Protocol Last Admin: 10/15/19 10:01 Dose: 100 mls/hr Documented by: Lidocaine (Lidoderm Patch -) 1 patch TP DAILY [facility] Last Admin: 10/15/19 09:59 Dose: 1 patch Documented by: Metoprolol Tartrate (Lopressor -) 50 mg PO DAILY [facility] Last Admin: 10/15/19 09:59 Dose: 50 mg Documented by: Miscellaneous (Lidoderm Patch Removal) 1 each MC DAILY@2200 [facility] Last Admin: 10/14/19 22:04 Dose: 1 each Documented by: Oxycodone HCl (Roxicodone -) 5 mg PO Q6H PRN PRN Reason: PAIN LEVEL 4 - 6 Last Admin: 10/15/19 04:48 Dose: 5 mg Documented by: Umeclidinium/Vilanterol (Anoro Ellipta 62.5-25 Mcg Inh) 1 puff IH DAILY [facility] Last Admin: 10/15/19 10:00 Dose: 1 puff Documented by: - Objective Vital Signs: Vital Signs Temperature 98.0 F 10/15/19 13:50 Pulse Rate 73 10/15/19 13:50 Respiratory Rate 18 10/15/19 13:50 Blood Pressure 113/62 10/15/19 13:50 O2 Sat by Pulse Oximetry (%) 96 10/15/19 13:50 Constitutional: Yes: No Distress, Thin Cardiovascular: Yes: Regular Rate and Rhythm, S1, S2 Respiratory: Yes: Diminished Gastrointestinal: Yes: Normal Bowel Sounds, Soft. No: Tenderness Edema: No Labs: CBC, BMP 10/12/19 10:58 10/12/19 07:06 Assessment/Plan PNEUMONIA ? COMMUNITY ACQUIRED/ ATYPICAL ? POST OBSTRUCTIVE COPD HX VERTEBRAL COMPRESSION FRACTURES/ OLD RIB FRACTURES SUBSTITUTE PO AUGMENTIN X 3D PAIN MGT
[2019-10-15] MEDS: AMOX TR/POT CLAV 500MG/125MG TABLETS (FP) PO SCH (17:31)
[2019-10-15] MEDS: LIDOCAINE PATCH REMOVAL MC SCH (21:32)
[2019-10-16] MEDS: ACETAMINOPHEN 500 MG TABLET (FP) PO PRN (01:34)
[2019-10-16] MEDS: DOCUSATE SODIUM 100 MG CAPSULE (FP) PO SCH ×3 (05:23→22:01)
[2019-10-16] MEDS ORDERED: PT OWN MED DRAWER 7, Y5N ONE ×3 (08:58→17:10)
[2019-10-16] MEDS: LIDOCAINE 5% TOPICAL PATCH TP SCH (08:59)
[2019-10-16] MEDS: ENOXAPARIN NA (PORCINE) 30 MG/0.3 ML DISP.SYRIN SQ SCH (09:00)
[2019-10-16] MEDS: ASPIRIN 81 MG CHEWABLE TABLETS PO SCH (09:00)
[2019-10-16] MEDS: AMOX TR/POT CLAV 500MG/125MG TABLETS (FP) PO SCH ×2 (09:00→17:11)
[2019-10-16] MEDS: FAMOTIDINE 20 MG TABLET PO SCH (09:00)
[2019-10-16] MEDS: MULTIVITAMINS (DAILY MVI) TABLET (FP) PO SCH (09:00)
[2019-10-16] MEDS: METOPROLOL TARTRATE 50 MG TABLET (FP) PO SCH (09:00)
[2019-10-16] MEDS: UMECLIDINIUM/VILANTEROL (ANORO) 62.5/25 MCG INHALER IH SCH (09:01)
[2019-10-16] MEDS: CALCIUM 250MG/VIT-D 125 UNITS 1 COMBO TABLET PO SCH (09:01)
--- NOTE | 2019-10-16 09:42 | DS ---
Physical Examination Vital Signs: Vital Signs Temperature 98.5 F 10/16/19 06:00 Pulse Rate 79 10/16/19 06:00 Respiratory Rate 18 10/16/19 06:00 Blood Pressure 121/77 10/16/19 06:00 O2 Sat by Pulse Oximetry (%) 98 10/16/19 06:00 Cardiovascular: Yes: Regular Rate and Rhythm Respiratory: Yes: Regular, CTA Bilaterally Gastrointestinal: Yes: Normal Bowel Sounds, Soft Labs: CBC, BMP 10/12/19 10:58 10/12/19 07:06 Discharge Summary Problems reviewed: Yes Reason For Visit: INTRACTABLE PAIN FRACTURE RIB CHRONIC OBSTRUCTIVE Current Active Problems Chest wall pain (Acute) Chronic back pain (Acute) Compression fracture of body of thoracic vertebra (Acute) HTN (hypertension) (Acute) Intractable pain (Acute) Lung cancer (Acute) Pneumonia (Acute) Hospital Course: - Problems (1) Lung cancer Assessment/Plan: -Previously known -Pulmonary on board -Bone scan: 10/14/19 No scintigraphic pattern of osteoblastic bony metastasis. Intense osteoblastic activity at L2 vertebral body corresponding to moderate compression deformity seen on CT of the chest dated October 09, 2019. This could be secondary to senile osteoporosis however underlying neoplastic process cannot be completely excluded. Focal intense uptake in the anterior left fifth rib with corresponding sclerosis seen on CT scan. This could be secondary to chronic posttraumatic changes however early metastatic sclerotic/osteoblastic lesion cannot be compl etely excluded. Continued close follow-up is recommended. Problems reviewed: Yes Code(s): C34.90 - MALIGNANT NEOPLASM OF UNSP PART OF UNSP BRONCHUS OR LUNG (2) Pneumonia Assessment/Plan: -Blood Cultures pending -Urine Legionella-negative -Afebrile -Pulmonary consult -ID consult -IV abx -Chest CT reviewed- 10/09/19-consolidations/atelectasis both bases R > L, with a small R- pleural effusion -Continue Ceftriaxone--PO Augmentin x 3 days Problems reviewed: Yes Code(s): J18.9 - PNEUMONIA, UNSPECIFIED ORGANISM (3) COPD (chronic obstructive pulmonary disease) Problems reviewed: Yes Code(s): J44.9 - CHRONIC OBSTRUCTIVE PULMONARY DISEASE, UNSPECIFIED (4) Fracture, rib Assessment/Plan: -Pain management -Chronic fx Problems reviewed: Yes Code(s): S22.39XA - FRACTURE OF ONE RIB, UNSP SIDE, INIT FOR CLOS FX Qualifiers: Encounter type: initial encounter Rib fracture type: single rib Fracture type: closed Laterality: unspecified laterality Qualified Code(s): S22.39XA - Fracture of one rib, unspecified side, initial encounter for closed fracture Assessment/Plan See problem list Will need SNF placement Left msg for bailey Godoy for pt update and d/c in AM to SNF Condition: Stable - Instructions Referrals: Clint Coronado MD [Primary Care Provider] - - Home Medications Comprehensive Discharge Medication List: Ambulatory Orders Aspirin [ASA -] 81 mg PO DAILY 11/28/17 Metoprolol Tartrate [Lopressor -] 50 mg PO DAILY 11/28/17 Umeclidinium Brm/Vilanterol Tr [Anoro Ellipta 62.5-25 Mcg INH] 1 each IH DAILY 11/29/17 Acetaminophen [Tylenol] 650 mg PO Q6H 10/09/19 Acetaminophen [Tylenol .Extra-Strength -] 1,000 mg PO Q6H PRN tablet 10/16/19 Amox-Tr/K Cl [Augmentin 500-125mg Tablet -] 1 tab PO BID@0800,1730 tablet 10/16/19 Calcitonin-[place] [Miacalcin [place] -] 1 spray NS DAILY spray.pump 10/16/19 Calcium 250Mg/Vit-D 125 Units [Oscal 250 mg+D -] 2 tab PO DAILY tab 10/16/19 Docusate Sodium [Colace -] 100 mg PO TID capsule 10/16/19 Enoxaparin [Lovenox -] 30 mg SQ DAILY disp.syrin 10/16/19 Famotidine [Pepcid -] 20 mg PO DAILY tablet 10/16/19 Lidocaine 5% Patch [Lidoderm -] 1 patch TP DAILY patch 10/16/19 Multivitamins [Multivit ([facility] Formul[facility])] 1 tab PO DAILY tab 10/16/19 oxyCODONE HCL [Roxicodone -] 5 mg PO Q6H PRN tablet 10/16/19
[2019-10-16] MEDS: CALCITONIN - SALMON SYNTHETIC 200 UNITS/SPRAY NS SCH (10:35)
--- NOTE | 2019-10-16 10:37 | PN ---
Progress Note, Physician History of Present Illness: pulmonary alert,oob-chair,less dyspneic - Current Medication List Current Medications: Active Medications Acetaminophen (Tylenol -) 1,000 mg PO Q6H PRN PRN Reason: FEVER PAIN LEVEL 1-5 Last Admin: 10/16/19 01:34 Dose: 1,000 mg Documented by: Amoxicillin/Clavulanate Potassium (Augmentin - 500mg Tablet) 1 tab PO BID@0800,1730 [facility] Last Admin: 10/16/19 09:00 Dose: 1 tab Documented by: Aspirin (Asa -) 81 mg PO DAILY [facility] Last Admin: 10/16/19 09:00 Dose: 81 mg Documented by: Calcitonin (Miacalcin [place] -) 1 spray NS DAILY [facility] Last Admin: 10/16/19 10:35 Dose: 1 spray Documented by: Calcium/Vitamin D (Oscal 250 Mg+D -) 2 tab PO DAILY [facility] Last Admin: 10/16/19 09:01 Dose: 2 tab Documented by: Docusate Sodium (Colace -) 100 mg PO TID [facility] Last Admin: 10/16/19 05:23 Dose: Not Given Documented by: Enoxaparin Sodium (Lovenox -) 30 mg SQ DAILY [facility] Last Admin: 10/16/19 09:00 Dose: 30 mg Documented by: Famotidine (Pepcid -) 20 mg PO DAILY [facility] Last Admin: 10/16/19 09:00 Dose: 20 mg Documented by: Lidocaine (Lidoderm Patch -) 1 patch TP DAILY [facility] Last Admin: 10/16/19 08:59 Dose: 1 patch Documented by: Metoprolol Tartrate (Lopressor -) 50 mg PO DAILY [facility] Last Admin: 10/16/19 09:00 Dose: 50 mg Documented by: Miscellaneous (Lidoderm Patch Removal) 1 each MC DAILY@2200 [facility] Last Admin: 10/15/19 21:32 Dose: 1 each Documented by: Multivitamins/Minerals/Vitamin C (Tab-A-Vit -) 1 tab PO DAILY [facility] Last Admin: 10/16/19 09:00 Dose: 1 tab Documented by: Oxycodone HCl (Roxicodone -) 5 mg PO Q6H PRN PRN Reason: PAIN LEVEL 4 - 6 Last Admin: 10/15/19 04:48 Dose: 5 mg Documented by: Umeclidinium/Vilanterol (Anoro Ellipta 62.5-25 Mcg Inh) 1 puff IH DAILY [facility] Last Admin: 10/16/19 09:01 Dose: 1 puff Documented by: - Objective Vital Signs: Vital Signs Temperature 98.5 F 10/16/19 06:00 Pulse Rate 79 10/16/19 06:00 Respiratory Rate 18 10/16/19 06:00 Blood Pressure 121/77 10/16/19 06:00 O2 Sat by Pulse Oximetry (%) 98 10/16/19 06:00 Constitutional: Yes: Calm, Thin Eyes: Yes: WNL HENT: Yes: WNL Neck: Yes: WNL Cardiovascular: Yes: Regular Rate and Rhythm, S1, S2 Respiratory: Yes: Diminished Gastrointestinal: Yes: Normal Bowel Sounds, Soft Extremities: Yes: WNL Labs: Problem List - Problems (1) HTN (hypertension) Code(s): I10 - ESSENTIAL (PRIMARY) HYPERTENSION (2) Lung cancer Code(s): C34.90 - MALIGNANT NEOPLASM OF UNSP PART OF UNSP BRONCHUS OR LUNG (3) Pneumonia Code(s): J18.9 - PNEUMONIA, UNSPECIFIED ORGANISM (4) COPD (chronic obstructive pulmonary disease) Code(s): J44.9 - CHRONIC OBSTRUCTIVE PULMONARY DISEASE, UNSPECIFIED Assessment/Plan A/P Pneumonia Lung Cancer COPD HTN Chronic Rib Fractures - antibiotics - pain control - inhaled bronchodilators - O2 to keep SpO2 >90% - DVT prophylaxis DR HARDEN
[2019-10-16] MEDS: oxyCODONE HCL 5 MG TABLET PO PRN ×2 (17:09→22:57)
[2019-10-16] MEDS: LIDOCAINE PATCH REMOVAL MC SCH (22:01)
[2019-10-17] MEDS: DOCUSATE SODIUM 100 MG CAPSULE (FP) PO SCH ×3 (05:25→21:12)
--- NOTE | 2019-10-17 08:37 | DS ---
Physical Examination Vital Signs: Vital Signs Temperature 98.9 F 10/17/19 06:00 Pulse Rate 76 10/17/19 06:00 Respiratory Rate 18 10/17/19 06:00 Blood Pressure 113/73 10/17/19 06:00 O2 Sat by Pulse Oximetry (%) 99 10/17/19 06:00 Cardiovascular: Yes: Regular Rate and Rhythm Respiratory: Yes: Regular, CTA Bilaterally Gastrointestinal: Yes: Normal Bowel Sounds, Soft Labs: CBC, BMP 10/12/19 10:58 10/12/19 07:06 Discharge Summary Problems reviewed: Yes Reason For Visit: INTRACTABLE PAIN FRACTURE RIB CHRONIC OBSTRUCTIVE Current Active Problems Chest wall pain (Acute) Chronic back pain (Acute) Compression fracture of body of thoracic vertebra (Acute) HTN (hypertension) (Acute) Intractable pain (Acute) Lung cancer (Acute) Pneumonia (Acute) Hospital Course: - Problems (1) Lung cancer Assessment/Plan: -Previously known -Pulmonary on board -Bone scan: 10/14/19 No scintigraphic pattern of osteoblastic bony metastasis. Intense osteoblastic activity at L2 vertebral body corresponding to moderate compression deformity seen on CT of the chest dated October 09, 2019. This could be secondary to senile osteoporosis however underlying neoplastic process cannot be completely excluded. Focal intense uptake in the anterior left fifth rib with corresponding sclerosis seen on CT scan. This could be secondary to chronic posttraumatic changes however early metastatic sclerotic/osteoblastic lesion cannot be compl etely excluded. Continued close follow-up is recommended. Problems reviewed: Yes Code(s): C34.90 - MALIGNANT NEOPLASM OF UNSP PART OF UNSP BRONCHUS OR LUNG (2) Pneumonia Assessment/Plan: -Blood Cultures pending -Urine Legionella-negative -Afebrile -Pulmonary consult -ID consult -IV abx -Chest CT reviewed- 10/09/19-consolidations/atelectasis both bases R > L, with a small R- pleural effusion -Continue Ceftriaxone--PO Augmentin x 3 days Problems reviewed: Yes Code(s): J18.9 - PNEUMONIA, UNSPECIFIED ORGANISM (3) COPD (chronic obstructive pulmonary disease) Problems reviewed: Yes Code(s): J44.9 - CHRONIC OBSTRUCTIVE PULMONARY DISEASE, UNSPECIFIED (4) Fracture, rib Assessment/Plan: -Pain management -Chronic fx Problems reviewed: Yes Code(s): S22.39XA - FRACTURE OF ONE RIB, UNSP SIDE, INIT FOR CLOS FX Qualifiers: Encounter type: initial encounter Rib fracture type: single rib Fracture type: closed Laterality: unspecified laterality Qualified Code(s): S22.39XA - Fracture of one rib, unspecified side, initial encounter for closed fracture Assessment/Plan See problem list Will need SNF placement SPOKE daughter Jayne agrees with SNF Condition: Stable - Instructions Referrals: Clint Coronado MD [Primary Care Provider] - - Home Medications Comprehensive Discharge Medication List: Ambulatory Orders Aspirin [ASA -] 81 mg PO DAILY 11/28/17 Metoprolol Tartrate [Lopressor -] 50 mg PO DAILY 11/28/17 Umeclidinium Brm/Vilanterol Tr [Anoro Ellipta 62.5-25 Mcg INH] 1 each IH DAILY 11/29/17 Acetaminophen [Tylenol] 650 mg PO Q6H 10/09/19 Acetaminophen [Tylenol .Extra-Strength -] 1,000 mg PO Q6H PRN tablet 10/16/19 Amox-Tr/K Cl [Augmentin 500-125mg Tablet -] 1 tab PO BID@0800,1730 tablet Calcitonin-[place] [Miacalcin [place] -] 1 spray NS DAILY spray.pump 10/16/19 Calcium 250Mg/Vit-D 125 Units [Oscal 250 mg+D -] 2 tab PO DAILY tab 10/16/19 Docusate Sodium [Colace -] 100 mg PO TID capsule 10/16/19 Enoxaparin [Lovenox -] 30 mg SQ DAILY disp.syrin 10/16/19 Famotidine [Pepcid -] 20 mg PO DAILY tablet 10/16/19 Lidocaine 5% Patch [Lidoderm -] 1 patch TP DAILY patch 10/16/19 Multivitamins [Multivit ([facility] Formulary)] 1 tab PO DAILY tab 10/16/19 oxyCODONE HCL [Roxicodone -] 5 mg PO Q6H PRN tablet 10/16/19
[2019-10-17] MEDS ORDERED: PT OWN MED DRAWER 7, Y5N ONE (09:16)
[2019-10-17] MEDS: oxyCODONE HCL 5 MG TABLET PO PRN ×2 (09:18→17:01)
[2019-10-17] MEDS: LIDOCAINE 5% TOPICAL PATCH TP SCH (09:18)
[2019-10-17] MEDS: CALCITONIN - SALMON SYNTHETIC 200 UNITS/SPRAY NS SCH (09:19)
[2019-10-17] MEDS: UMECLIDINIUM/VILANTEROL (ANORO) 62.5/25 MCG INHALER IH SCH (09:19)
[2019-10-17] MEDS: METOPROLOL TARTRATE 50 MG TABLET (FP) PO SCH (09:19)
[2019-10-17] MEDS: CALCIUM 250MG/VIT-D 125 UNITS 1 COMBO TABLET PO SCH (09:19)
[2019-10-17] MEDS: ASPIRIN 81 MG CHEWABLE TABLETS PO SCH (09:19)
[2019-10-17] MEDS: FAMOTIDINE 20 MG TABLET PO SCH (09:19)
[2019-10-17] MEDS: AMOX TR/POT CLAV 500MG/125MG TABLETS (FP) PO SCH ×2 (09:19→16:59)
[2019-10-17] MEDS: ENOXAPARIN NA (PORCINE) 30 MG/0.3 ML DISP.SYRIN SQ SCH (09:19)
[2019-10-17] MEDS: MULTIVITAMINS (DAILY MVI) TABLET (FP) PO SCH (09:19)
--- NOTE | 2019-10-17 10:59 | PN ---
Progress Note (short form) - Note Progress Note: PULMONARY No shortness of breath, cough. No fevers recorded. Vital Signs Period Temp Pulse Resp BP Sys/Anthony Pulse Ox Last 24 Hr 98.3 F-98.9 F 72-85 18-20 104-124/66-73 95-100 Gen: NAD at rest Heart: RRR Lung: decreased breath sounds at the bases Abd: soft, nontender Ext: no edema CBC, BMP 10/12/19 10:58 10/12/19 07:06 Active Medications Acetaminophen (Tylenol -) 1,000 mg PO Q6H PRN PRN Reason: FEVER PAIN LEVEL 1-5 Last Admin: 10/16/19 01:34 Dose: 1,000 mg Documented by: Amoxicillin/Clavulanate Potassium (Augmentin - 500mg Tablet) 1 tab PO BID@0800,1730 [facility] Last Admin: 10/17/19 09:19 Dose: 1 tab Documented by: Aspirin (Asa -) 81 mg PO DAILY [facility] Last Admin: 10/17/19 09:19 Dose: 81 mg Documented by: Calcitonin (Miacalcin [place] -) 1 spray NS DAILY [facility] Last Admin: 10/17/19 09:19 Dose: 1 spray Documented by: Calcium/Vitamin D (Oscal 250 Mg+D -) 2 tab PO DAILY [facility] Last Admin: 10/17/19 09:19 Dose: 2 tab Documented by: Docusate Sodium (Colace -) 100 mg PO TID [facility] Last Admin: 10/17/19 05:25 Dose: Not Given Documented by: Enoxaparin Sodium (Lovenox -) 30 mg SQ DAILY [facility] Last Admin: 10/17/19 09:19 Dose: 30 mg Documented by: Famotidine (Pepcid -) 20 mg PO DAILY [facility] Last Admin: 10/17/19 09:19 Dose: 20 mg Documented by: Lidocaine (Lidoderm Patch -) 1 patch TP DAILY [facility] Last Admin: 10/17/19 09:18 Dose: 1 patch Documented by: Metoprolol Tartrate (Lopressor -) 50 mg PO DAILY [facility] Last Admin: 10/17/19 09:19 Dose: 50 mg Documented by: Miscellaneous (Lidoderm Patch Removal) 1 each MC DAILY@2200 [facility] Last Admin: 10/16/19 22:01 Dose: 1 each Documented by: Multivitamins/Minerals/Vitamin C (Tab-A-Vit -) 1 tab PO DAILY [facility] Last Admin: 10/17/19 09:19 Dose: 1 tab Documented by: Oxycodone HCl (Roxicodone -) 5 mg PO Q6H PRN PRN Reason: PAIN LEVEL 4 - 6 Last Admin: 10/17/19 09:18 Dose: 5 mg Documented by: Umeclidinium/Vilanterol (Anoro Ellipta 62.5-25 Mcg Inh) 1 puff IH DAILY [facility] Last Admin: 10/17/19 09:19 Dose: 1 puff Documented by: A/P Pneumonia Lung Cancer COPD HTN Chronic Rib Fractures - complete antibiotics - pain control - inhaled bronchodilators - O2 to keep SpO2 >90% - DVT prophylaxis
[2019-10-17] MEDS: LIDOCAINE PATCH REMOVAL MC SCH (21:11)
[2019-10-18] MEDS: DOCUSATE SODIUM 100 MG CAPSULE (FP) PO SCH ×3 (06:06→21:30)
--- NOTE | 2019-10-18 08:47 | DS ---
Physical Examination Vital Signs: Vital Signs Temperature 98.6 F 10/18/19 02:00 Pulse Rate 91 H 10/18/19 02:00 Respiratory Rate 20 10/18/19 02:00 Blood Pressure 128/69 10/18/19 02:00 O2 Sat by Pulse Oximetry (%) 96 10/18/19 02:00 Cardiovascular: Yes: S1, S2 Respiratory: Yes: Regular, CTA Bilaterally Gastrointestinal: Yes: Normal Bowel Sounds, Soft Labs: CBC, BMP 10/12/19 10:58 10/12/19 07:06 Discharge Summary Problems reviewed: Yes Reason For Visit: INTRACTABLE PAIN FRACTURE RIB CHRONIC OBSTRUCTIVE Current Active Problems Chest wall pain (Acute) Chronic back pain (Acute) Compression fracture of body of thoracic vertebra (Acute) HTN (hypertension) (Acute) Intractable pain (Acute) Lung cancer (Acute) Pneumonia (Acute) Hospital Course: - Problems (1) Lung cancer Assessment/Plan: -Previously known -Pulmonary on board -Bone scan: 10/14/19 No scintigraphic pattern of osteoblastic bony metastasis. Intense osteoblastic activity at L2 vertebral body corresponding to moderate compression deformity se en on CT of the chest dated October 09, 2019. This could be secondary to senile osteoporosis however underlying neoplastic process cannot be completely excluded. Focal intense uptake in the anterior left fifth rib with corresponding sclerosis seen on CT scan. This could be secondary to chronic posttraumatic changes however early metastatic sclerotic/osteoblastic lesion cannot be completely excluded. Continued close follow-up is recommended. Problems reviewed: Yes Code(s): C34.90 - MALIGNANT NEOPLASM OF UNSP PART OF UNSP BRONCHUS OR LUNG (2) Pneumonia Assessment/Plan: -Blood Cultures pending -Urine Legionella-negative -Afebrile -Pulmonary consult -ID consult -IV abx -Chest CT reviewed- 10/09/19-consolidations/atelectasis both bases R > L, with a small R- pleural effusion -Continue Ceftriaxone--PO Augmentin x 3 days Problems reviewed: Yes Code(s): J18.9 - PNEUMONIA, UNSPECIFIED ORGANISM (3) COPD (chronic obstructive pulmonary disease) Problems reviewed: Yes Code(s): J44.9 - CHRONIC OBSTRUCTIVE PULMONARY DISEASE, UNSPECIFIED (4) Fracture, rib Assessment/Plan: -Pain management -Chronic fx Problems reviewed: Yes Code(s): S22.39XA - FRACTURE OF ONE RIB, UNSP SIDE, INIT FOR CLOS FX Qualifiers: Encounter type: initial encounter Rib fracture type: single rib Fracture type: closed Laterality: unspecified laterality Qualified Code(s): S22.39XA - Fracture of one rib, unspecified side, initial encounter for closed fracture Assessment/Plan See problem list Will need SNF placement SPOKE daughter Jayne agrees with SNF Condition: Stable - Instructions Referrals: Clint Coronado MD [Primary Care Provider] - - Home Medications Comprehensive Discharge Medication List: Ambulatory Orders Aspirin [ASA -] 81 mg PO DAILY 11/28/17 Metoprolol Tartrate [Lopressor -] 50 mg PO DAILY 11/28/17 Umeclidinium Brm/Vilanterol Tr [Anoro Ellipta 62.5-25 Mcg INH] 1 each IH DAILY 11/29/17 Acetaminophen [Tylenol] 650 mg PO Q6H 10/09/19 Acetaminophen [Tylenol .Extra-Strength -] 1,000 mg PO Q6H PRN tablet 10/16/19 Amox-Tr/K Cl [Augmentin 500-125mg Tablet -] 1 tab PO BID@0800,1730 tablet 10/16/19 Calcitonin-[place] [Miacalcin [place] -] 1 spray NS DAILY spray.pump 10/16/19 Calcium 250Mg/Vit-D 125 Units [Oscal 250 mg+D -] 2 tab PO DAILY tab 10/16/19 Docusate Sodium [Colace -] 100 mg PO TID capsule 10/16/19 Enoxaparin [Lovenox -] 30 mg SQ DAILY disp.syrin 10/16/19 Famotidine [Pepcid -] 20 mg PO DAILY tablet 10/16/19 Lidocaine 5% Patch [Lidoderm -] 1 patch TP DAILY patch 10/16/19 Multivitamins [Multivit ([facility] Formulary)] 1 tab PO DAILY tab 10/16/19 oxyCODONE HCL [Roxicodone -] 5 mg PO Q6H PRN tablet 10/16/19
--- NOTE | 2019-10-18 10:48 | PN ---
Progress Note, Physician History of Present Illness: PULMONARY ALERT,OOB-CHAIR,C/O BACK PAIN,SOB IMPROVING - Current Medication List Current Medications: Active Medications Acetaminophen (Tylenol -) 1,000 mg PO Q6H PRN PRN Reason: FEVER PAIN LEVEL 1-5 Last Admin: 10/16/19 01:34 Dose: 1,000 mg Documented by: Amoxicillin/Clavulanate Potassium (Augmentin - 500mg Tablet) 1 tab PO BID@0800,1730 [facility] Last Admin: 10/17/19 16:59 Dose: 1 tab Documented by: Aspirin (Asa -) [address] [facility] Last Admin: 10/17/19 09:19 Dose: 81 mg Documented by: Calcitonin (Miacalcin [place] -) [address] [facility] Last Admin: 10/17/19 09:19 Dose: 1 spray Documented by: Calcium/Vitamin D (Oscal 250 Mg+D -) [address] [facility] Last Admin: 10/17/19 09:19 Dose: 2 tab Documented by: Docusate Sodium (Colace -) [address] [facility] Last Admin: 10/18/19 06:06 Dose: Not Given Documented by: Duloxetine HCl (Cymbalta -) [address] [facility] Famotidine (Pepcid -) [address] [facility] Last Admin: 10/17/19 09:19 Dose: 20 mg Documented by: Lidocaine (Lidoderm Patch -) [address] [facility] Last Admin: 10/17/19 09:18 Dose: 1 patch Documented by: Metoprolol Tartrate (Lopressor -) [address] [facility] Last Admin: 10/17/19 09:19 Dose: 50 mg Documented by: Miscellaneous (Lidoderm Patch Removal) 1 each MC DAILY@2200 [facility] Last Admin: 10/17/19 21:11 Dose: 1 each Documented by: Multivitamins/Minerals/Vitamin C (Tab-A-Vit -) [address] [facility] Last Admin: 10/17/19 09:19 Dose: 1 tab Documented by: Oxycodone HCl (Roxicodone -) 5 mg PO Q6H PRN PRN Reason: PAIN LEVEL 4 - 6 Last Admin: 10/17/19 17:01 Dose: 5 mg Documented by: Umeclidinium/Vilanterol (Anoro Ellipta 62.5-25 Mcg Inh) 1 puff IH DAILY [facility] Last Admin: 10/17/19 09:19 Dose: 1 puff Documented by: - Objective Vital Signs: Vital Signs Temperature 97.9 F 10/18/19 09:45 Pulse Rate 82 10/18/19 09:45 Respiratory Rate 20 10/18/19 09:45 Blood Pressure 159/76 10/18/19 09:45 O2 Sat by Pulse Oximetry (%) 97 10/18/19 09:45 Constitutional: Yes: Calm, Thin, Other (DISCOMFORT SECONDARY TO BACK PAIN) Eyes: Yes: WNL HENT: Yes: WNL Extremities: Yes: WNL Edema: No Labs: CBC, BMP Problem List - Problems (1) HTN (hypertension) Code(s): I10 - ESSENTIAL (PRIMARY) HYPERTENSION (2) Lung cancer Code(s): C34.90 - MALIGNANT NEOPLASM OF UNSP PART OF UNSP BRONCHUS OR LUNG (3) Pneumonia Code(s): J18.9 - PNEUMONIA, UNSPECIFIED ORGANISM (4) COPD (chronic obstructive pulmonary disease) Code(s): J44.9 - CHRONIC OBSTRUCTIVE PULMONARY DISEASE, UNSPECIFIED Assessment/Plan A/P Pneumonia Lung Cancer COPD HTN Chronic Rib Fractures - antibiotics - pain control - inhaled bronchodilators - O2 to keep SpO2 >90% - DVT prophylaxis DR HARDEN
[2019-10-18] MEDS ORDERED: PT OWN MED DRAWER 7, Y5N ONE ×2 (11:01→17:08)
[2019-10-18] MEDS: MULTIVITAMINS (DAILY MVI) TABLET (FP) PO SCH (11:05)
[2019-10-18] MEDS: ASPIRIN 81 MG CHEWABLE TABLETS PO SCH (11:05)
[2019-10-18] MEDS: AMOX TR/POT CLAV 500MG/125MG TABLETS (FP) PO SCH ×2 (11:05→17:49)
[2019-10-18] MEDS: LIDOCAINE 5% TOPICAL PATCH TP SCH (11:06)
[2019-10-18] MEDS: METOPROLOL TARTRATE 50 MG TABLET (FP) PO SCH (11:06)
[2019-10-18] MEDS: CALCIUM 250MG/VIT-D 125 UNITS 1 COMBO TABLET PO SCH (11:07)
[2019-10-18] MEDS: FAMOTIDINE 20 MG TABLET PO SCH (11:08)
[2019-10-18] MEDS: UMECLIDINIUM/VILANTEROL (ANORO) 62.5/25 MCG INHALER IH SCH (11:09)
[2019-10-18] MEDS: CALCITONIN - SALMON SYNTHETIC 200 UNITS/SPRAY NS SCH (11:09)
[2019-10-18] MEDS: DULoxetine HCL 20 MG CAPSULE.DR PO SCH (11:17)
[2019-10-18] MEDS: ENOXAPARIN NA (PORCINE) 30 MG/0.3 ML DISP.SYRIN SQ SCH (11:39)
[2019-10-18] MEDS: LIDOCAINE PATCH REMOVAL MC SCH (22:00)
[2019-10-19] MEDS: DOCUSATE SODIUM 100 MG CAPSULE (FP) PO SCH ×3 (05:47→22:40)
[2019-10-19] MEDS ORDERED: PT OWN MED DRAWER 7, Y5N ONE ×3 (10:33→16:44)
[2019-10-19] MEDS: ASPIRIN 81 MG CHEWABLE TABLETS PO SCH (10:34)
[2019-10-19] MEDS: METOPROLOL TARTRATE 50 MG TABLET (FP) PO SCH (10:34)
[2019-10-19] MEDS: FAMOTIDINE 20 MG TABLET PO SCH (10:34)
[2019-10-19] MEDS: MULTIVITAMINS (DAILY MVI) TABLET (FP) PO SCH (10:34)
[2019-10-19] MEDS: CALCIUM 250MG/VIT-D 125 UNITS 1 COMBO TABLET PO SCH (10:34)
[2019-10-19] MEDS: DULoxetine HCL 20 MG CAPSULE.DR PO SCH (10:34)
[2019-10-19] MEDS: AMOX TR/POT CLAV 500MG/125MG TABLETS (FP) PO SCH ×2 (10:35→17:46)
[2019-10-19] MEDS: LIDOCAINE 5% TOPICAL PATCH TP SCH (10:36)
[2019-10-19] MEDS: CALCITONIN - SALMON SYNTHETIC 200 UNITS/SPRAY NS SCH (10:38)
[2019-10-19] MEDS: UMECLIDINIUM/VILANTEROL (ANORO) 62.5/25 MCG INHALER IH SCH (10:39)
--- NOTE | 2019-10-19 12:12 | PN ---
Progress Note (short form) - Note Progress Note: PULMONARY No shortness of breath, cough. No fevers recorded. Awaiting placement. Vital Signs Period Temp Pulse Resp BP Sys/Anthony Pulse Ox Last 24 Hr 97.4 F-98.9 F 71-85 19-20 129-165/49-72 95-99 Gen: NAD at rest Heart: RRR Lung: decreased breath sounds at the bases Abd: soft, nontender Ext: no edema CBC, BMP 10/12/19 10:58 10/12/19 07:06 Active Medications Acetaminophen (Tylenol -) 1,000 mg PO Q6H PRN PRN Reason: FEVER PAIN LEVEL 1-5 Last Admin: 10/16/19 01:34 Dose: 1,000 mg Documented by: Amoxicillin/Clavulanate Potassium (Augmentin - 500mg Tablet) 1 tab PO BID@0800,1730 [facility] Last Admin: 10/19/19 10:35 Dose: 1 tab Documented by: Aspirin (Asa -) 81 mg PO DAILY [facility] Last Admin: 10/19/19 10:34 Dose: 81 mg Documented by: Calcitonin (Miacalcin [place] -) 1 spray NS DAILY [facility] Last Admin: 10/19/19 10:38 Dose: 1 spray Documented by: Calcium/Vitamin D (Oscal 250 Mg+D -) 2 tab PO DAILY [facility] Last Admin: 10/19/19 10:34 Dose: 2 tab Documented by: Docusate Sodium (Colace -) 100 mg PO TID [facility] Last Admin: 10/19/19 05:47 Dose: 100 mg Documented by: Duloxetine HCl (Cymbalta -) 20 mg PO DAILY [facility] Last Admin: 10/19/19 10:34 Dose: 20 mg Documented by: Famotidine (Pepcid -) 20 mg PO DAILY [facility] Last Admin: 10/19/19 10:34 Dose: 20 mg Documented by: Lidocaine (Lidoderm Patch -) 1 patch TP DAILY [facility] Last Admin: 10/19/19 10:36 Dose: 1 patch Documented by: Metoprolol Tartrate (Lopressor -) 50 mg PO DAILY [facility] Last Admin: 10/19/19 10:34 Dose: 50 mg Documented by: Miscellaneous (Lidoderm Patch Removal) 1 each MC DAILY@2200 [facility] Last Admin: 10/18/19 22:00 Dose: 1 each Documented by: Multivitamins/Minerals/Vitamin C (Tab-A-Vit -) 1 tab PO DAILY [facility] Last Admin: 10/19/19 10:34 Dose: 1 tab Documented by: Umeclidinium/Vilanterol (Anoro Ellipta 62.5-25 Mcg Inh) 1 puff IH DAILY [facility] Last Admin: 10/19/19 10:39 Dose: 1 puff Documented by: A/P Pneumonia Lung Cancer COPD HTN Chronic Rib Fractures - complete antibiotic course - pain control - inhaled bronchodilators - O2 to keep SpO2 >90% - DVT prophylaxis - d/c planning in progress
--- NOTE | 2019-10-19 12:44 | PN ---
Progress Note (short form) - Note Progress Note: AWAKE MORE ALERT DISCHARGE ORDERS COMPLETED AWAITING PLACEMENT TO SNF EVENTS AND NOTES REVIEWED
[2019-10-19] MEDS: ACETAMINOPHEN 500 MG TABLET (FP) PO PRN (20:16)
[2019-10-19] MEDS: LIDOCAINE PATCH REMOVAL MC SCH (22:40)
[2019-10-20] MEDS: DOCUSATE SODIUM 100 MG CAPSULE (FP) PO SCH ×3 (06:37→22:44)
[2019-10-20] MEDS ORDERED: PT OWN MED DRAWER 7, Y5N ONE (10:09)
[2019-10-20] MEDS: LIDOCAINE 5% TOPICAL PATCH TP SCH (10:11)
[2019-10-20] MEDS: DULoxetine HCL 20 MG CAPSULE.DR PO SCH (10:11)
[2019-10-20] MEDS: AMOX TR/POT CLAV 500MG/125MG TABLETS (FP) PO SCH ×2 (10:11→18:04)
[2019-10-20] MEDS: UMECLIDINIUM/VILANTEROL (ANORO) 62.5/25 MCG INHALER IH SCH (10:13)
[2019-10-20] MEDS: METOPROLOL TARTRATE 50 MG TABLET (FP) PO SCH (10:13)
[2019-10-20] MEDS: ASPIRIN 81 MG CHEWABLE TABLETS PO SCH (10:13)
[2019-10-20] MEDS: MULTIVITAMINS (DAILY MVI) TABLET (FP) PO SCH (10:13)
[2019-10-20] MEDS: FAMOTIDINE 20 MG TABLET PO SCH (10:13)
[2019-10-20] MEDS: CALCITONIN - SALMON SYNTHETIC 200 UNITS/SPRAY NS SCH (10:14)
[2019-10-20] MEDS: CALCIUM 250MG/VIT-D 125 UNITS 1 COMBO TABLET PO SCH (10:14)
[2019-10-20] MEDS: ACETAMINOPHEN 500 MG TABLET (FP) PO PRN (10:26)
--- NOTE | 2019-10-20 11:07 | PN ---
Progress Note, Physician Chief Complaint: AWAITING AUTHORIZATION TO SNF C/O ACHES JOINTS - Current Medication List Current Medications: Active Medications Acetaminophen (Tylenol -) 1,000 mg PO Q6H PRN PRN Reason: FEVER PAIN LEVEL 1-5 Last Admin: 10/20/19 10:26 Dose: 1,000 mg Documented by: Amoxicillin/Clavulanate Potassium (Augmentin - 500mg Tablet) 1 tab PO BID@0800,1730 [facility] Last Admin: 10/20/19 10:11 Dose: 1 tab Documented by: Aspirin (Asa -) 81 mg PO DAILY [facility] Last Admin: 10/20/19 10:13 Dose: 81 mg Documented by: Calcitonin (Miacalcin [place] -) 1 spray NS DAILY [facility] Last Admin: 10/20/19 10:14 Dose: 1 spray Documented by: Calcium/Vitamin D (Oscal 250 Mg+D -) 2 tab PO DAILY [facility] Last Admin: 10/20/19 10:14 Dose: 2 tab Documented by: Docusate Sodium (Colace -) 100 mg PO TID [facility] Last Admin: 10/20/19 06:37 Dose: 100 mg Documented by: Duloxetine HCl (Cymbalta -) 20 mg PO DAILY [facility] Last Admin: 10/20/19 10:11 Dose: 20 mg Documented by: Famotidine (Pepcid -) 20 mg PO DAILY [facility] Last Admin: 10/20/19 10:13 Dose: 20 mg Documented by: Lidocaine (Lidoderm Patch -) 1 patch TP DAILY [facility] Last Admin: 10/20/19 10:11 Dose: 1 patch Documented by: Metoprolol Tartrate (Lopressor -) 50 mg PO DAILY [facility] Last Admin: 10/20/19 10:13 Dose: 50 mg Documented by: Miscellaneous (Lidoderm Patch Removal) 1 each MC DAILY@2200 [facility] Last Admin: 10/19/19 22:40 Dose: 1 each Documented by: Multivitamins/Minerals/Vitamin C (Tab-A-Vit -) 1 tab PO DAILY [facility] Last Admin: 10/20/19 10:13 Dose: 1 tab Documented by: Tramadol HCl (Ultram -) 50 mg PO Q8H PRN PRN Reason: PAIN LEVEL 6-10 Umeclidinium/Vilanterol (Anoro Ellipta 62.5-25 Mcg Inh) 1 puff IH DAILY [facility] Last Admin: 10/20/19 10:13 Dose: 1 puff Documented by: - Objective Vital Signs: Vital Signs Temperature 97.6 F 10/20/19 06:21 Pulse Rate 86 10/20/19 06:21 Respiratory Rate 18 10/20/19 06:21 Blood Pressure 126/73 10/20/19 06:21 O2 Sat by Pulse Oximetry (%) 96 10/20/19 06:21 Constitutional: Yes: Mild Distress Cardiovascular: Yes: Regular Rate and Rhythm Respiratory: Yes: WNL Gastrointestinal: Yes: Soft Genitourinary: Yes: Incontinence Neurological: Yes: Confusion Labs: CBC, BMP 10/12/19 10:58 10/12/19 07:06 Problem List - Problems (1) Compression fracture of body of thoracic vertebra Code(s): S22.000A - WEDGE COMPRESSION FRACTURE OF UNSP THORACIC VERTEBRA, INIT (2) HTN (hypertension) Code(s): I10 - ESSENTIAL (PRIMARY) HYPERTENSION (3) Lung cancer Code(s): C34.90 - MALIGNANT NEOPLASM OF UNSP PART OF UNSP BRONCHUS OR LUNG (4) Fall Code(s): W19.XXXA - UNSPECIFIED FALL, INITIAL ENCOUNTER Qualifiers: Encounter type: initial encounter Qualified Code(s): W19.XXXA - Unspecified fall, initial encounter Assessment/Plan PAIN CONTROL WITH LIDODERM PATCH/TRAMADOL CAN USE CALCITONIN PER NASAL BONE DENSITY OUTPATIENT CALCIUM/VITAMIN D PROLIA OR RECLAST FOR OSTEOPOROSIS [place]
--- NOTE | 2019-10-20 11:40 | PN ---
Progress Note (short form) - Note Progress Note: PULMONARY No shortness of breath, cough. No fevers recorded. Awaiting placement. Vital Signs Period Temp Pulse Resp BP Sys/Anthony Pulse Ox Last 24 Hr 97.4 F-97.6 F 82-86 18-20 126-151/73-76 96-96 Gen: NAD at rest Heart: RRR Lung: decreased breath sounds at the bases Abd: soft, nontender Ext: no edema CBC, BMP 10/12/19 10:58 10/12/19 07:06 Active Medications Acetaminophen (Tylenol -) 1,000 mg PO Q6H PRN PRN Reason: FEVER PAIN LEVEL 1-5 Last Admin: 10/20/19 10:26 Dose: 1,000 mg Documented by: Amoxicillin/Clavulanate Potassium (Augmentin - 500mg Tablet) 1 tab PO BID@0800,1730 [facility] Last Admin: 10/20/19 10:11 Dose: 1 tab Documented by: Aspirin (Asa -) 81 mg PO DAILY [facility] Last Admin: 10/20/19 10:13 Dose: 81 mg Documented by: Bacitracin (Bacitracin -) 1 applic TP DAILY [facility] Calcitonin (Miacalcin [place] -) 1 spray NS DAILY [facility] Last Admin: 10/20/19 10:14 Dose: 1 spray Documented by: Calcium/Vitamin D (Oscal 250 Mg+D -) 2 tab PO DAILY [facility] Last Admin: 10/20/19 10:14 Dose: 2 tab Documented by: Docusate Sodium (Colace -) 100 mg PO TID [facility] Last Admin: 10/20/19 06:37 Dose: 100 mg Documented by: Duloxetine HCl (Cymbalta -) 20 mg PO DAILY [facility] Last Admin: 10/20/19 10:11 Dose: 20 mg Documented by: Famotidine (Pepcid -) 20 mg PO DAILY [facility] Last Admin: 10/20/19 10:13 Dose: 20 mg Documented by: Lidocaine (Lidoderm Patch -) 1 patch TP DAILY [facility] Last Admin: 10/20/19 10:11 Dose: 1 patch Documented by: Metoprolol Tartrate (Lopressor -) 50 mg PO DAILY [facility] Last Admin: 10/20/19 10:13 Dose: 50 mg Documented by: Miscellaneous (Lidoderm Patch Removal) 1 each MC DAILY@2200 [facility] Last Admin: 10/19/19 22:40 Dose: 1 each Documented by: Multivitamins/Minerals/Vitamin C (Tab-A-Vit -) 1 tab PO DAILY [facility] Last Admin: 10/20/19 10:13 Dose: 1 tab Documented by: Tramadol HCl (Ultram -) 50 mg PO Q8H PRN PRN Reason: PAIN LEVEL 6-10 Umeclidinium/Vilanterol (Anoro Ellipta 62.5-25 Mcg Inh) 1 puff IH DAILY [facility] Last Admin: 10/20/19 10:13 Dose: 1 puff Documented by: A/P Pneumonia Lung Cancer COPD HTN Chronic Rib Fractures - complete antibiotic course - pain control - inhaled bronchodilators - O2 to keep SpO2 >90% - DVT prophylaxis - d/c planning in progress
[2019-10-20] MEDS: BACITRACIN 15 GM TUBE TOPICAL OINTMENT TP SCH (12:36)
[2019-10-20] MEDS: LIDOCAINE PATCH REMOVAL MC SCH (22:44)
[2019-10-21] MEDS: DOCUSATE SODIUM 100 MG CAPSULE (FP) PO SCH ×4 (06:16→21:41)
[2019-10-21] MEDS: ACETAMINOPHEN 500 MG TABLET (FP) PO PRN (06:49)
[2019-10-21] MEDS: AMOX TR/POT CLAV 500MG/125MG TABLETS (FP) PO SCH ×2 (08:42→17:07)
[2019-10-21] MEDS: LIDOCAINE 5% TOPICAL PATCH TP SCH (09:45)
[2019-10-21] MEDS: METOPROLOL TARTRATE 50 MG TABLET (FP) PO SCH (09:45)
[2019-10-21] MEDS: FAMOTIDINE 20 MG TABLET PO SCH (09:45)
[2019-10-21] MEDS: MULTIVITAMINS (DAILY MVI) TABLET (FP) PO SCH (09:45)
[2019-10-21] MEDS: ASPIRIN 81 MG CHEWABLE TABLETS PO SCH (09:46)
[2019-10-21] MEDS: traMADol HCL 50 MG TABLET PO PRN (09:46)
[2019-10-21] MEDS: CALCIUM 250MG/VIT-D 125 UNITS 1 COMBO TABLET PO SCH (09:46)
[2019-10-21] MEDS: DULoxetine HCL 20 MG CAPSULE.DR PO SCH (09:46)
[2019-10-21] MEDS: BACITRACIN 15 GM TUBE TOPICAL OINTMENT TP SCH (09:47)
[2019-10-21] MEDS: CALCITONIN - SALMON SYNTHETIC 200 UNITS/SPRAY NS SCH (09:47)
[2019-10-21] MEDS: UMECLIDINIUM/VILANTEROL (ANORO) 62.5/25 MCG INHALER IH SCH (09:47)
--- NOTE | 2019-10-21 12:50 | PN ---
Progress Note (short form) - Note Progress Note: Resting in NAD. No shortness of breath, cough. No fevers recorded. Awaiting placement. Intake & Output 10/18/19 10/19/19 10/20/19 10/21/19 23:59 23:59 23:59 23:59 Intake Total 790 120 350 Output Total 2 2 Balance 790 120 348 -2 Weight 101 lb 1 oz 99 lb 6.4 oz 99 lb 9.6 oz 98 lb Last Vital Signs Temp Pulse Resp BP Pulse Ox 98.7 F 95 H 18 143/87 94 L 10/21/19 05:00 10/21/19 09:00 10/21/19 09:00 10/21/19 09:00 10/21/19 09:00 Active Medications Acetaminophen (Tylenol -) 1,000 mg PO Q6H PRN PRN Reason: FEVER PAIN LEVEL 1-5 Last Admin: 10/21/19 06:49 Dose: 1,000 mg Documented by: Amoxicillin/Clavulanate Potassium (Augmentin - 500mg Tablet) 1 tab PO BID@0800,1730 [facility] Last Admin: 10/21/19 08:42 Dose: 1 tab Documented by: Aspirin (Asa -) 81 mg PO DAILY [facility] Last Admin: 10/21/19 09:46 Dose: 81 mg Documented by: Bacitracin (Bacitracin -) 1 applic TP DAILY [facility] Last Admin: 10/21/19 09:47 Dose: 1 appful Documented by: Calcitonin (Miacalcin [place] -) 1 spray NS DAILY [facility] Last Admin: 10/21/19 09:47 Dose: 1 spray Documented by: Calcium/Vitamin D (Oscal 250 Mg+D -) 2 tab PO DAILY [facility] Last Admin: 10/21/19 09:46 Dose: 2 tab Documented by: Docusate Sodium (Colace -) 100 mg PO TID [facility] Last Admin: 10/21/19 06:16 Dose: Not Given Documented by: Duloxetine HCl (Cymbalta -) 20 mg PO DAILY [facility] Last Admin: 10/21/19 09:46 Dose: 20 mg Documented by: Famotidine (Pepcid -) 20 mg PO DAILY [facility] Last Admin: 10/21/19 09:45 Dose: 20 mg Documented by: Lidocaine (Lidoderm Patch -) 1 patch TP DAILY [facility] Last Admin: 10/21/19 09:45 Dose: 1 patch Documented by: Metoprolol Tartrate (Lopressor -) 50 mg PO DAILY [facility] Last Admin: 10/21/19 09:45 Dose: 50 mg Documented by: Miscellaneous (Lidoderm Patch Removal) 1 each MC DAILY@2200 [facility] Last Admin: 10/20/19 22:44 Dose: 1 each Documented by: Multivitamins/Minerals/Vitamin C (Tab-A-Vit -) 1 tab PO DAILY [facility] Last Admin: 10/21/19 09:45 Dose: 1 tab Documented by: Tramadol HCl (Ultram -) 50 mg PO Q8H PRN PRN Reason: PAIN LEVEL 6-10 Last Admin: 10/21/19 09:46 Dose: 50 mg Documented by: Umeclidinium/Vilanterol (Anoro Ellipta 62.5-25 Mcg Inh) 1 puff IH DAILY [facility] Last Admin: 10/21/19 09:47 Dose: 1 puff Documented by: Gen: NAD at rest Heart: RRR Lung: decreased breath sounds at the bases Abd: soft, nontender Ext: no edema A/P Pneumonia Lung Cancer COPD HTN Chronic Rib Fractures - complete antibiotic course - pain control - inhaled bronchodilators - O2 to keep SpO2 >90% - DVT prophylaxis - d/c planning in progress Dr Raymundo Problem List - Problems (1) Chronic back pain Code(s): M54.9 - DORSALGIA, UNSPECIFIED; G89.29 - OTHER CHRONIC PAIN (2) HTN (hypertension) Code(s): I10 - ESSENTIAL (PRIMARY) HYPERTENSION (3) Pneumonia Code(s): J18.9 - PNEUMONIA, UNSPECIFIED ORGANISM (4) COPD (chronic obstructive pulmonary disease) Code(s): J44.9 - CHRONIC OBSTRUCTIVE PULMONARY DISEASE, UNSPECIFIED (5) Compression fracture of lumbar spine, non-traumatic Code(s): M48.56XA - COLLAPSED VERTEBRA, NEC, LUMBAR REGION, INIT (6) Fracture, rib Code(s): S22.39XA - FRACTURE OF ONE RIB, UNSP SIDE, INIT FOR CLOS FX Qualifiers: Encounter type: initial encounter Rib fracture type: single rib Fracture type: closed Laterality: unspecified laterality Qualified Code(s): S22.39XA - Fracture of one rib, unspecified side, initial encounter for closed fracture (7) Mass of right lung Code(s): R91.8 - OTHER NONSPECIFIC ABNORMAL FINDING OF LUNG FIELD
--- NOTE | 2019-10-21 17:59 | PN ---
Progress Note, Physician Chief Complaint: Pneumonia Chest pain History of Present Illness: NAD, alert and oriented Feels better - Current Medication List Current Medications: Active Medications Acetaminophen (Tylenol -) 1,000 mg PO Q6H PRN PRN Reason: FEVER PAIN LEVEL 1-5 Last Admin: 10/21/19 06:49 Dose: 1,000 mg Documented by: Amoxicillin/Clavulanate Potassium (Augmentin - 500mg Tablet) 1 tab PO BID@0800,1730 [facility] Last Admin: 10/21/19 17:07 Dose: 1 tab Documented by: Aspirin (Asa -) 81 mg PO DAILY [facility] Last Admin: 10/21/19 09:46 Dose: 81 mg Documented by: Bacitracin (Bacitracin -) 1 applic TP DAILY [facility] Last Admin: 10/21/19 09:47 Dose: 1 appful Documented by: Calcitonin (Miacalcin [place] -) 1 spray NS DAILY [facility] Last Admin: 10/21/19 09:47 Dose: 1 spray Documented by: Calcium/Vitamin D (Oscal 250 Mg+D -) 2 tab PO DAILY [facility] Last Admin: 10/21/19 09:46 Dose: 2 tab Documented by: Docusate Sodium (Colace -) 100 mg PO TID [facility] Last Admin: 10/21/19 13:48 Dose: 100 mg Documented by: Duloxetine HCl (Cymbalta -) 20 mg PO DAILY [facility] Last Admin: 10/21/19 09:46 Dose: 20 mg Documented by: Famotidine (Pepcid -) 20 mg PO DAILY [facility] Last Admin: 10/21/19 09:45 Dose: 20 mg Documented by: Lidocaine (Lidoderm Patch -) 1 patch TP DAILY [facility] Last Admin: 10/21/19 09:45 Dose: 1 patch Documented by: Metoprolol Tartrate (Lopressor -) 50 mg PO DAILY [facility] Last Admin: 10/21/19 09:45 Dose: 50 mg Documented by: Miscellaneous (Lidoderm Patch Removal) 1 each MC DAILY@2200 [facility] Last Admin: 10/20/19 22:44 Dose: 1 each Documented by: Multivitamins/Minerals/Vitamin C (Tab-A-Vit -) 1 tab PO DAILY [facility] Last Admin: 10/21/19 09:45 Dose: 1 tab Documented by: Tramadol HCl (Ultram -) 50 mg PO Q8H PRN PRN Reason: PAIN LEVEL 6-10 Last Admin: 10/21/19 09:46 Dose: 50 mg Documented by: Umeclidinium/Vilanterol (Anoro Ellipta 62.5-25 Mcg Inh) 1 puff IH DAILY [facility] Last Admin: 10/21/19 09:47 Dose: 1 puff Documented by: - Objective Vital Signs: Vital Signs Temperature 97.4 F L 10/21/19 15:13 Pulse Rate 74 10/21/19 15:13 Respiratory Rate 18 10/21/19 15:13 Blood Pressure 153/72 10/21/19 15:13 O2 Sat by Pulse Oximetry (%) 93 L 10/21/19 15:13 Constitutional: Yes: Well Nourished, No Distress, Calm Cardiovascular: Yes: Regular Rate and Rhythm Respiratory: Yes: Regular, CTA Bilaterally Gastrointestinal: Yes: Normal Bowel Sounds, Soft Genitourinary: Yes: WNL Musculoskeletal: Yes: Muscle Weakness Extremities: Yes: WNL Edema: No Peripheral Pulses WNL: Yes Neurological: Yes: Alert, Oriented Psychiatric: Yes: Alert, Oriented Labs: CBC, BMP 10/12/19 10:58 10/12/19 07:06 Problem List - Problems (1) Lung cancer Assessment/Plan: -Previously known -Pulmonary on board -Bone scan: 10/14/19 No scintigraphic pattern of osteoblastic bony metastasis. Intense osteoblastic activity at L2 vertebral body corresponding to moderate compression deformity seen on CT of the chest dated October 09, 2019. This could be secondary to senile osteoporosis however underlying neoplastic process cannot be completely excluded. Focal intense uptake in the anterior left fifth rib with corresponding sclerosis seen on CT scan. This could be secondary to chronic posttraumatic changes however early metastatic sclerotic/osteoblastic lesion cannot be complet tita excluded. Continued close follow-up is recommended. Problems reviewed: Yes Code(s): C34.90 - MALIGNANT NEOPLASM OF UNSP PART OF UNSP BRONCHUS OR LUNG (2) Pneumonia Assessment/Plan: -Blood Cultures: Microbiology 10/09/19 21:10 Blood - Peripheral Venous Blood Culture - Final NO GROWTH AFTER 5 DAYS INCUBATION 10/09/19 21:00 Blood - Peripheral Venous Blood Culture - Final NO GROWTH AFTER 5 DAYS INCUBATION 10/09/19 23:00 Urine - Urine - Catheterized Urine Culture - Final NO GROWTH OBTAINED 10/09/19 23:00 Urine - Urine - Catheterized Legionella Antigen - Final 10/09/19 23:00 Urine - Urine - Catheterized Streptococcus pneumoniae Antigen (M - Final -Urine Legionella-negative -Afebrile -Pulmonary consult -ID consult -PO augmentin bid to be finished in AM -Chest CT reviewed- 10/09/19-consolidations/atelectasis both bases R > L, with a small R- pleural effusion -Continue Ceftriaxone Problems reviewed: Yes Code(s): J18.9 - PNEUMONIA, UNSPECIFIED ORGANISM (3) COPD (chronic obstructive pulmonary disease) Problems reviewed: Yes Code(s): J44.9 - CHRONIC OBSTRUCTIVE PULMONARY DISEASE, UNSPECIFIED (4) Fracture, rib Assessment/Plan: -Pain management -Chronic fx Problems reviewed: Yes Code(s): S22.39XA - FRACTURE OF ONE RIB, UNSP SIDE, INIT FOR CLOS FX Qualifiers: Encounter type: initial encounter Rib fracture type: single rib Fracture type: closed Laterality: unspecified laterality Qualified Code(s): S22.39XA - Fracture of one rib, unspecified side, initial encounter for closed fracture Assessment/Plan See problem list Spoke to daughter Jayne about pt status.
[2019-10-21] MEDS: LIDOCAINE PATCH REMOVAL MC SCH (21:38)
[2019-10-22] MEDS ORDERED: PT OWN MED DRAWER 7, Y5N ONE (09:29)
[2019-10-22] MEDS: LIDOCAINE 5% TOPICAL PATCH TP SCH (09:31)
[2019-10-22] MEDS: METOPROLOL TARTRATE 50 MG TABLET (FP) PO SCH (09:32)
[2019-10-22] MEDS: traMADol HCL 50 MG TABLET PO PRN (09:32)
[2019-10-22] MEDS: CALCIUM 250MG/VIT-D 125 UNITS 1 COMBO TABLET PO SCH (09:32)
[2019-10-22] MEDS: ASPIRIN 81 MG CHEWABLE TABLETS PO SCH (09:32)
[2019-10-22] MEDS: FAMOTIDINE 20 MG TABLET PO SCH (09:32)
[2019-10-22] MEDS: DULoxetine HCL 20 MG CAPSULE.DR PO SCH (09:32)
[2019-10-22] MEDS: MULTIVITAMINS (DAILY MVI) TABLET (FP) PO SCH (09:32)
[2019-10-22] MEDS: UMECLIDINIUM/VILANTEROL (ANORO) 62.5/25 MCG INHALER IH SCH (09:33)
[2019-10-22] MEDS: BACITRACIN 15 GM TUBE TOPICAL OINTMENT TP SCH (09:33)
[2019-10-22] MEDS: CALCITONIN - SALMON SYNTHETIC 200 UNITS/SPRAY NS SCH (09:33)
[2019-10-22] MEDS: AMOX TR/POT CLAV 500MG/125MG TABLETS (FP) PO SCH (09:33)
--- NOTE | 2019-10-22 10:48 | PN ---
Progress Note, Physician Chief Complaint: Pneumonia Chest pain History of Present Illness: NAD, alert and oriented Feels better - Current Medication List Current Medications: Active Medications Acetaminophen (Tylenol -) 1,000 mg PO Q6H PRN PRN Reason: FEVER PAIN LEVEL 1-5 Last Admin: 10/21/19 06:49 Dose: 1,000 mg Documented by: Amoxicillin/Clavulanate Potassium (Augmentin - 500mg Tablet) 1 tab PO BID@0800,1730 [facility] Last Admin: 10/22/19 09:33 Dose: 1 tab Documented by: Aspirin (Asa -) 81 mg PO DAILY [facility] Last Admin: 10/22/19 09:32 Dose: 81 mg Documented by: Bacitracin (Bacitracin -) 1 applic TP DAILY [facility] Last Admin: 10/22/19 09:33 Dose: 1 appful Documented by: Calcitonin (Miacalcin [place] -) 1 spray NS DAILY [facility] Last Admin: 10/22/19 09:33 Dose: 1 spray Documented by: Calcium/Vitamin D (Oscal 250 Mg+D -) 2 tab PO DAILY [facility] Last Admin: 10/22/19 09:32 Dose: 2 tab Documented by: Docusate Sodium (Colace -) 100 mg PO TID [facility] Last Admin: 10/21/19 21:41 Dose: Not Given Documented by: Duloxetine HCl (Cymbalta -) 20 mg PO DAILY [facility] Last Admin: 10/22/19 09:32 Dose: 20 mg Documented by: Famotidine (Pepcid -) 20 mg PO DAILY [facility] Last Admin: 10/22/19 09:32 Dose: 20 mg Documented by: Lidocaine (Lidoderm Patch -) 1 patch TP DAILY [facility] Last Admin: 10/22/19 09:31 Dose: 1 patch Documented by: Metoprolol Tartrate (Lopressor -) 50 mg PO DAILY [facility] Last Admin: 10/22/19 09:32 Dose: 50 mg Documented by: Miscellaneous (Lidoderm Patch Removal) 1 each MC DAILY@2200 [facility] Last Admin: 10/21/19 21:38 Dose: 1 each Documented by: Multivitamins/Minerals/Vitamin C (Tab-A-Vit -) 1 tab PO DAILY [facility] Last Admin: 10/22/19 09:32 Dose: 1 tab Documented by: Tramadol HCl (Ultram -) 50 mg PO Q8H PRN PRN Reason: PAIN LEVEL 6-10 Last Admin: 10/22/19 09:32 Dose: 50 mg Documented by: Umeclidinium/Vilanterol (Anoro Ellipta 62.5-25 Mcg Inh) 1 puff IH DAILY [facility] Last Admin: 10/22/19 09:33 Dose: 1 puff Documented by: - Objective Vital Signs: Vital Signs Temperature 98.6 F 10/22/19 09:00 Pulse Rate 95 H 10/22/19 09:00 Respiratory Rate 10/22/19 09:00 Blood Pressure 162/67 10/22/19 09:00 O2 Sat by Pulse Oximetry (%) 93 L 10/22/19 09:00 Constitutional: Yes: Well Nourished, No Distress, Calm Cardiovascular: Yes: Regular Rate and Rhythm Respiratory: Yes: Regular, CTA Bilaterally Gastrointestinal: Yes: Normal Bowel Sounds, Soft Musculoskeletal: Yes: Muscle Weakness Extremities: Yes: WNL Edema: No Peripheral Pulses WNL: Yes Neurological: Yes: Alert, Oriented Psychiatric: Yes: Alert, Oriented Labs: CBC, BMP 10/12/19 10:58 10/12/19 07:06 Problem List - Problems (1) Lung cancer Assessment/Plan: -Previously known -Pulmonary on board -Bone scan: 10/14/19 No scintigraphic pattern of osteoblastic bony metastasis. Intense osteoblastic activity at L2 vertebral body corresponding to moderate compression deformity seen on CT of the chest dated October 09, 2019. This could be secondary to senile osteoporosis however underlying neoplastic process cannot be completely excluded. Focal intense uptake in the anterior left fifth rib with corresponding sclerosis seen on CT scan. This could be secondary to chronic posttraumatic changes however early metastatic sclerotic/osteoblastic lesion cannot be completely excluded. Continued close follow-up is recommended. Problems reviewed: Yes Code(s): C34.90 - MALIGNANT NEOPLASM OF UNSP PART OF UNSP BRONCHUS OR LUNG (2) Pneumonia Assessment/Plan: -Blood Cultures: Microbiology 10/09/19 21:10 Blood - Peripheral Venous Blood Culture - Final NO GROWTH AFTER 5 DAYS INCUBATION 10/09/19 21:00 Blood - Peripheral Venous Blood Culture - Final NO GROWTH AFTER 5 DAYS INCUBATION 10/09/19 23:00 Urine - Urine - Catheterized Urine Culture - Final NO GROWTH OBTAINED 10/09/19 23:00 Urine - Urine - Catheterized Legionella Antigen - Final 10/09/19 23:00 Urine - Urine - Catheterized Streptococcus pneumoniae Antigen (M - Final -Urine Legionella-negative -Afebrile -Pulmonary consult -ID consult -PO augmentin bid to be finished in AM -Chest CT reviewed- 10/09/19-consolidations/atelectasis both bases R > L, with a small R- pleural effusion -Continue Ceftriaxone Problems reviewed: Yes Code(s): J18.9 - PNEUMONIA, UNSPECIFIED ORGANISM (3) COPD (chronic obstructive pulmonary disease) Problems reviewed: Yes Code(s): J44.9 - CHRONIC OBSTRUCTIVE PULMONARY DISEASE, UNSPECIFIED (4) Fracture, rib Assessment/Plan: -Pain management -Chronic fx Problems reviewed: Yes Code(s): S22.39XA - FRACTURE OF ONE RIB, UNSP SIDE, INIT FOR CLOS FX Qualifiers: Encounter type: initial encounter Rib fracture type: single rib Fracture type: closed Laterality: unspecified laterality Qualified Code(s): S22.39XA - Fracture of one rib, unspecified side, initial encounter for closed fracture Assessment/Plan See problem list Pt SNF has been authorized for [facility].
--- NOTE | 2019-10-22 11:07 | DS ---
Physical Examination Vital Signs: Vital Signs Temperature 98.6 F 10/22/19 09:00 Pulse Rate 95 H 10/22/19 09:00 Respiratory Rate 20 10/22/19 09:00 Blood Pressure 162/67 10/22/19 09:00 O2 Sat by Pulse Oximetry (%) 93 L 10/22/19 09:00 Findings/Remarks: (1) Lung cancer Assessment/Plan: -Previously known -Pulmonary on board -Bone scan: 10/14/19 No scintigraphic pattern of osteoblastic bony metastasis. Intense osteoblastic activity at L2 vertebral body corresponding to moderate compression deformity seen on CT of the chest dated October 09, 2019. This could be secondary to senile osteoporosis however underlying neoplastic process cannot be completely exc luded. Focal intense uptake in the anterior left fifth rib with corresponding sclerosis seen on CT scan. This could be secondary to chronic posttraumatic changes however early metastatic sclerotic/osteoblastic lesion cannot be completely excluded. Continued close follow-up is recommended. Problems reviewed: Yes Code(s): C34.90 - MALIGNANT NEOPLASM OF UNSP PART OF UNSP BRONCHUS OR LUNG (2) Pneumonia Assessment/Plan: -Blood Cultures: Microbiology 10/09/19 21:10 Blood - Peripheral Venous Blood Culture - Final NO GROWTH AFTER 5 DAYS INCUBATION 10/09/19 21:00 Blood - Peripheral Venous Blood Culture - Final NO GROWTH AFTER 5 DAYS INCUBATION 10/09/19 23:00 Urine - Urine - Catheterized Urine Culture - Final NO GROWTH OBTAINED 10/09/19 23:00 Urine - Urine - Catheterized Legionella Antigen - Final 10/09/19 23:00 Urine - Urine - Catheterized Streptococcus pneumoniae Antigen (M - Final -Urine Legionella-negative -Afebrile -Pulmonary consult -ID consult -Pt finished IV and PO abx -Chest CT reviewed- 10/09/19-consolidations/atelectasis both bases R > L, with a small R- pleural effusion Problems reviewed: Yes Code(s): J18.9 - PNEUMONIA, UNSPECIFIED ORGANISM (3) COPD (chronic obstructive pulmonary disease) Problems reviewed: Yes Code(s): J44.9 - CHRONIC OBSTRUCTIVE PULMONARY DISEASE, UNSPECIFIED (4) Fracture, rib Assessment/Plan: -Pain management -Chronic fx -Pt needs a Bone density spine and hips outpatient to determine Osteoporosis- to consider Osteoporosis treatment Problems reviewed: Yes Code(s): S22.39XA - FRACTURE OF ONE RIB, UNSP SIDE, INIT FOR CLOS FX Qualifiers: Encounter type: initial encounter Rib fracture type: single rib Fracture type: closed Laterality: unspecified laterality Qualified Code(s): S22.39XA - Fracture of one rib, unspecified side, initial encounter for closed fracture Assessment/Plan See problem list Constitutional: Yes: Well Nourished, No Distress, Calm Cardiovascular: Yes: Regular Rate and Rhythm Respiratory: Yes: Regular, CTA Bilaterally Gastrointestinal: Yes: Normal Bowel Sounds, Soft Renal/: Yes: WNL Musculoskeletal: Yes: Muscle Weakness Extremities: Yes: WNL Edema: No Peripheral Pulses WNL: Yes Neurological: Yes: Alert, Oriented Psychiatric: Yes: Alert, Oriented Labs: CBC, BMP 10/12/19 10:58 10/12/19 07:06 Discharge Summary Problems reviewed: Yes Reason For Visit: INTRACTABLE PAIN FRACTURE RIB CHRONIC OBSTRUCTIVE Current Active Problems Chest wall pain (Acute) Chronic back pain (Acute) Compression fracture of body of thoracic vertebra (Acute) HTN (hypertension) (Acute) Intractable pain (Acute) Lung cancer (Acute) Pneumonia (Acute) Hospital Course: - Problems (1) Lung cancer Assessment/Plan: -Previously known -Pulmonary on board -Bone scan: 10/14/19 No scintigraphic pattern of osteoblastic bony metastasis. Intense osteoblastic activity at L2 vertebral body corresponding to moderate compression deformity seen on CT of the chest dated October 09, 2019. This could be secondary to senile osteoporosis however underlying neoplastic process cannot be completely excluded. Focal intense uptake in the anterior left fifth rib with corresponding sclerosis seen on CT scan. This could be secondary to chronic posttraumatic changes however early metastatic sclerotic/osteoblastic lesion cannot be completely excluded. Continued close follow-up is recommended. Problems reviewed: Yes Code(s): C34.90 - MALIGNANT NEOPLASM OF UNSP PART OF UNSP BRONCHUS OR LUNG (2) Pneumonia Assessment/Plan: -Blood Cultures pending -Urine Legionella-negative -Afebrile -Pulmonary consult -ID consult -IV abx -Chest CT reviewed- 10/09/19-consolidations/atelectasis both bases R > L, with a small R- pleural effusion -Continue Ceftriaxone--PO Augmentin x 3 days Problems reviewed: Yes Code(s): J18.9 - PNEUMONIA, UNSPECIFIED ORGANISM (3) COPD (chronic obstructive pulmonary disease) Problems reviewed: Yes Code(s): J44.9 - CHRONIC OBSTRUCTIVE PULMONARY DISEASE, UNSPECIFIED (4) Fracture, rib Assessment/Plan: -Pain management -Chronic fx Problems reviewed: Yes Code(s): S22.39XA - FRACTURE OF ONE RIB, UNSP SIDE, INIT FOR CLOS FX Qualifiers: Encounter type: initial encounter Rib fracture type: single rib Fracture type: closed Laterality: unspecified laterality Qualified Code(s): S22.39XA - Fracture of one rib, unspecified side, initial encounter for closed fracture Assessment/Plan See problem list Will need SNF placement SPOKE daughter Jayne agrees with SNF Condition: Stable - Instructions Referrals: Clint Coronado MD [Primary Care Provider] - Disposition: LONG TERM FACILITY - Home Medications Comprehensive Discharge Medication List: Ambulatory Orders Aspirin [ASA -] 81 mg PO DAILY 11/28/17 Metoprolol Tartrate [Lopressor -] 50 mg PO DAILY 11/28/17 Umeclidinium Brm/Vilanterol Tr [Anoro Ellipta 62.5-25 Mcg INH] 1 each IH DAILY 11/29/17 Acetaminophen [Tylenol .Extra-Strength -] 1,000 mg PO Q6H PRN tablet 10/16/19 Calcitonin-[place] [Miacalcin [place] -] 1 spray NS DAILY spray.pump 10/16/19 Calcium 250Mg/Vit-D 125 Units [Oscal 250 mg+D -] 2 tab PO DAILY tab 10/16/19 Docusate Sodium [Colace -] 100 mg PO TID capsule 10/16/19 Enoxaparin [Lovenox -] 30 mg SQ DAILY disp.syrin 10/16/19 Famotidine [Pepcid -] 20 mg PO DAILY tablet 10/16/19 Lidocaine 5% Patch [Lidoderm -] 1 patch TP DAILY patch 10/16/19 Multivitamins [Multivit ([facility] Formulary)] 1 tab PO DAILY tab 10/16/19 Duloxetine HCl [Cymbalta -] 20 mg PO DAILY capsule. 10/22/19 Lidocaine Patch Removal [Lidoderm Patch Removal] 1 each MC DAILY@2200 each 10/22/19 traMADol HCL [Ultram -] 50 mg PO Q8H PRN tablet 10/22/19 Prescription Drug Monitoring Program (I-STOP) results: I-STOP reviewed and no issues identified
--- NOTE | 2019-10-22 12:44 | PN ---
Progress Note (short form) - Note Progress Note: Resting in NAD. No shortness of breath, cough. No fevers recorded. Awaiting placement. Intake & Output 10/19/19 10/20/19 10/21/19 10/22/19 23:59 23:59 23:59 23:59 Intake Total 120 350 Output Total 2 2 Balance 120 348 -2 Weight 99 lb 6.4 oz 99 lb 9.6 oz 98 lb 100 lb 4 oz Last Vital Signs Temp Pulse Resp BP Pulse Ox 98.6 F 95 H 20 162/67 93 L 10/22/19 09:00 10/22/19 09:00 10/22/19 09:00 10/22/19 09:00 10/22/19 09:00 Active Medications Acetaminophen (Tylenol -) 1,000 mg PO Q6H PRN PRN Reason: FEVER PAIN LEVEL 1-5 Last Admin: 10/21/19 06:49 Dose: 1,000 mg Documented by: Amoxicillin/Clavulanate Potassium (Augmentin - 500mg Tablet) 1 tab PO BID@0800,1730 [facility] Last Admin: 10/22/19 09:33 Dose: 1 tab Documented by: Aspirin (Asa -) 81 mg PO DAILY [facility] Last Admin: 10/22/19 09:32 Dose: 81 mg Documented by: Bacitracin (Bacitracin -) 1 applic TP DAILY [facility] Last Admin: 10/22/19 09:33 Dose: 1 appful Documented by: Calcitonin (Miacalcin [place] -) 1 spray NS DAILY [facility] Last Admin: 10/22/19 09:33 Dose: 1 spray Documented by: Calcium/Vitamin D (Oscal 250 Mg+D -) 2 tab PO DAILY [facility] Last Admin: 10/22/19 09:32 Dose: 2 tab Documented by: Docusate Sodium (Colace -) 100 mg PO TID [facility] Last Admin: 10/21/19 21:41 Dose: Not Given Documented by: Duloxetine HCl (Cymbalta -) 20 mg PO DAILY [facility] Last Admin: 10/22/19 09:32 Dose: 20 mg Documented by: Famotidine (Pepcid -) 20 mg PO DAILY [facility] Last Admin: 10/22/19 09:32 Dose: 20 mg Documented by: Lidocaine (Lidoderm Patch -) 1 patch TP DAILY [facility] Last Admin: 10/22/19 09:31 Dose: 1 patch Documented by: Metoprolol Tartrate (Lopressor -) 50 mg PO DAILY [facility] Last Admin: 10/22/19 09:32 Dose: 50 mg Documented by: Miscellaneous (Lidoderm Patch Removal) 1 each MC DAILY@2200 [facility] Last Admin: 10/21/19 21:38 Dose: 1 each Documented by: Multivitamins/Minerals/Vitamin C (Tab-A-Vit -) 1 tab PO DAILY [facility] Last Admin: 10/22/19 09:32 Dose: 1 tab Documented by: Tramadol HCl (Ultram -) 50 mg PO Q8H PRN PRN Reason: PAIN LEVEL 6-10 Last Admin: 10/22/19 09:32 Dose: 50 mg Documented by: Umeclidinium/Vilanterol (Anoro Ellipta 62.5-25 Mcg Inh) 1 puff IH DAILY [facility] Last Admin: 10/22/19 09:33 Dose: 1 puff Documented by: Gen: NAD at rest Heart: RRR Lung: decreased breath sounds at the bases Abd: soft, nontender Ext: no edema A/P Pneumonia Lung Cancer COPD HTN Chronic Rib Fractures - complete antibiotic course - pain control - inhaled bronchodilators - O2 to keep SpO2 >90% - DVT prophylaxis - d/c planning in progress Dr Raymundo Problem List - Problems (1) Chronic back pain Code(s): M54.9 - DORSALGIA, UNSPECIFIED; G89.29 - OTHER CHRONIC PAIN (2) HTN (hypertension) Code(s): I10 - ESSENTIAL (PRIMARY) HYPERTENSION (3) Pneumonia Code(s): J18.9 - PNEUMONIA, UNSPECIFIED ORGANISM (4) COPD (chronic obstructive pulmonary disease) Code(s): J44.9 - CHRONIC OBSTRUCTIVE PULMONARY DISEASE, UNSPECIFIED (5) Compression fracture of lumbar spine, non-traumatic Code(s): M48.56XA - COLLAPSED VERTEBRA, NEC, LUMBAR REGION, INIT (6) Fracture, rib Code(s): S22.39XA - FRACTURE OF ONE RIB, UNSP SIDE, INIT FOR CLOS FX Qualifiers: Encounter type: initial encounter Rib fracture type: single rib Fracture type: closed Laterality: unspecified laterality Qualified Code(s): S22.39XA - Fracture of one rib, unspecified side, initial encounter for closed fracture (7) Mass of right lung Code(s): R91.8 - OTHER NONSPECIFIC ABNORMAL FINDING OF LUNG FIELD
[2019-10-22] MEDS: DOCUSATE SODIUM 100 MG CAPSULE (FP) PO SCH (14:04)
[2019-10-22 14:23] VITALS: BP 146/42; PULSE 79; TEMP 97.7
== END 2019-10-22 17:09 | DRG 542 ==
LOC: JER 13:05 → JERBED 15:26 → J6S 17:51
PROVIDERS: ADMIT Family Medicine; ATTEND Family Medicine
DX: M80.08XA Age-related osteoporosis with current pathological fracture, vertebra(e), initial encounter for fracture (principal); E43 Unspecified severe protein-calorie malnutrition; J18.9 Pneumonia, unspecified organism; J90 Pleural effusion, not elsewhere classified; J98.11 Atelectasis; C34.90 Malignant neoplasm of unspecified part of unspecified bronchus or lung; R64 Cachexia; Z68.1 Body mass index [BMI] 19.9 or less, adult; J44.9 Chronic obstructive pulmonary disease, unspecified; I10 Essential (primary) hypertension; G89.29 Other chronic pain; D64.9 Anemia, unspecified; Z87.891 Personal history of nicotine dependence; M54.9 Dorsalgia, unspecified
CPT/HCPCS: 36415; 71250-TC; 78306-TC; 80053; 85025; 85379; 87040; 87086; 87899; 93005; 93010; 94761; 97116-GP; 97162-GP; 99285-25; A9503; J0131; U0003

== ENCOUNTER 2021-01-10 21:23 | Inpatient (IN) | payer OTHER ==
[2021-01-10 21:45] VITALS: BMI 20.3
[2021-01-10] MEDS ORDERED: DEXAMETHASONE SOD PHOSPHATE 10 MG/1 ML VIAL ONE (21:53)
[2021-01-10] MEDS ORDERED: MAGNESIUM SULFATE IN WATER 2 GM/50 ML IVPB IVPB ONE (21:53)
[2021-01-10 22:02] LABS: BASO % 0.6 % (0-2.0); EOS % 0.1 % (0-4.5); HEMATOCRIT 36.2 % (32.4-45.2); HEMOGLOBIN 12.1 GM/dL (10.7-15.3); LYMPH % 11.6 % (8-40); MCH 32.7 pg (25.7-33.7); MCHC 33.4 g/dl (32.0-36.0); MEAN CELL VOLUME 97.9 fl (80-96); MEAN PLT VOLUME 6.9 fl (7.5-11.1); MONO % 3.8 % (3.8-10.2); NEUT % 83.9 % (42.8-82.8); PLATELET COUNT 470 10^3/uL (134-434); VENOUS O2 SATURATION 42.4 % (70-80); VENOUS PCO2 55.6 mmHg (38-52); VENOUS PH 7.221 (7.310-7.410); WHITE BLOOD COUNT 15.9 K/mm3 (4.0-10.0)
[2021-01-10 22:22] LABS: CHLORIDE 103 mmol/L (98-107); SODIUM 138 mmol/L (136-145)
[2021-01-10 22:23] LABS: INR 0.91 (0.83-1.09); PROTHROMBIN TIME (PATIENT) 10.6 SEC (9.7-13.0)
[2021-01-10 22:24] LABS: BLOOD UREA NITROGEN 20.9 mg/dL (7-18); CALCIUM 9.2 mg/dL (8.5-10.1)
[2021-01-10 22:25] LABS: ACTIVATED PTT 27.1 SECONDS (25.2-36.5); ALBUMIN 3.9 g/dl (3.4-5.0); ANION GAP 6 MMOL/L (8-16); CO2 29 mmol/L (21-32); GLUCOSE,RANDOM 184 mg/dL (74-106)
[2021-01-10 22:27] LABS: SGPT/ALT 13 U/L (13-61)
[2021-01-10 22:28] LABS: CREATININE 1.1 mg/dL (0.55-1.3); SGOT/AST 17 U/L (15-37)
[2021-01-10 22:29] LABS: BILIRUBIN,TOTAL 0.4 mg/dL (0.2-1); TOT PROT 7.5 g/dl (6.4-8.2)
[2021-01-10 22:31] LABS: ALK PHOS 89 U/L (45-117)
[2021-01-10] MEDS ORDERED: VANCOMYCIN 1,000 MG in DEXTROSE 5%-WATER - 250 ML IVPB ONE (22:33)
[2021-01-10] MEDS ORDERED: LACTATED RINGERS SOLUTION 1000 ML INFUS.BAG IV ONE (22:33)
[2021-01-10] MEDS ORDERED: PIPERACILLIN/TAZOB 4.5 GM 4.5 GM in DEXTROSE 5%-WATER 100 ML IVPB ONE (22:33)
[2021-01-10] MEDS ORDERED: ASPIRIN 81 MG CHEWABLE TABLETS PO ONE (22:49)
[2021-01-10] MEDS: ALBUTEROL SO4 2.5/IPRATROPIUM 0.5 INH SOL 3 ML VIAL.NEB. NEB SCH ×3 (22:49→23:10)
[2021-01-10] MEDS ORDERED: PIPERACILLIN/TAZOB 4.5 GM 4.5 GM/100 ML BAG IVPB ONE (22:50)
[2021-01-10] MEDS ORDERED: VANCOMYCIN 1 GRAM (PRE-DOCKED) 1,000 MG/250 ML BAG IVPB ONE (22:51)
[2021-01-10] MEDS ORDERED: ASPIRIN 81 MG CHEWABLE TABLETS ONE (22:58)
[2021-01-10] MEDS ORDERED: ALBUTEROL SO4 2.5/IPRATROPIUM 0.5 INH SOL 3 ML VIAL.NEB. NEB PRN (23:40)
[2021-01-10] MEDS ORDERED: ALBUTEROL SO4 2.5/IPRATROPIUM 0.5 INH SOL 3 ML VIAL.NEB. NEB ONE (23:51)
[2021-01-11 01:50] LABS: LACTIC ACID 2.3 mmol/L (0.4-2.0)
[2021-01-11 02:22] LABS: LACTIC ACID 4.7 mmol/L (0.4-2.0)
[2021-01-11] MEDS: methylPREDNISolone NA SUCC 40 MG/1 ML VIAL IVPUSH SCH ×4 (04:00→21:52)
[2021-01-11] MEDS ORDERED: methylPREDNISolone NA SUCC 40 MG/1 ML VIAL ONE ×4 (05:13→21:29)
[2021-01-11] MEDS ORDERED: PIPERACILLIN/TAZOB 4.5 GM 4.5 GM in DEXTROSE 5%-WATER 100 ML IVPB SCH (09:00)
[2021-01-11] MEDS ORDERED: PIPERACILLIN/TAZOB 3.375 GM 3.375 GM in DEXTROSE 5%-WATER - 50 ML IVPB SCH (09:00)
[2021-01-11 09:06] LABS: BASO % 0.3 % (0-2.0); HEMATOCRIT 30.9 % (32.4-45.2); HEMOGLOBIN 10.6 GM/dL (10.7-15.3); LYMPH % 8.8 % (8-40); MCH 33.2 pg (25.7-33.7); MCHC 34.4 g/dl (32.0-36.0); MEAN CELL VOLUME 96.4 fl (80-96); MEAN PLT VOLUME 6.9 fl (7.5-11.1); MONO % 1.2 % (3.8-10.2); NEUT % 89.7 % (42.8-82.8); PLATELET COUNT 394 10^3/uL (134-434); RDW 12.9 % (11.6-15.6)
[2021-01-11 09:27] LABS: CHLORIDE 104 mmol/L (98-107); SODIUM 136 mmol/L (136-145)
[2021-01-11 09:30] LABS: ANION GAP 8 MMOL/L (8-16); BLOOD UREA NITROGEN 21.9 mg/dL (7-18); CO2 25 mmol/L (21-32); GLUCOSE,RANDOM 219 mg/dL (74-106); MAGNESIUM 2.5 mg/dL (1.8-2.4)
[2021-01-11 09:33] LABS: SGPT/ALT 13 U/L (13-61)
[2021-01-11 09:34] LABS: CREATININE 1.1 mg/dL (0.55-1.3)
[2021-01-11 09:35] LABS: BILIRUBIN,TOTAL 0.4 mg/dL (0.2-1); TOT PROT 6.4 g/dl (6.4-8.2)
[2021-01-11 09:36] LABS: ALK PHOS 72 U/L (45-117)
[2021-01-11 09:41] LABS: SGOT/AST 21 U/L (15-37)
[2021-01-11 09:46] LABS: ALBUMIN 3.1 g/dl (3.4-5.0)
[2021-01-11] MEDS ORDERED: ENOXAPARIN NA (PORCINE) 30 MG/0.3 ML DISP.SYRIN SQ ONE (09:56)
[2021-01-11] MEDS: ENOXAPARIN NA (PORCINE) 30 MG/0.3 ML DISP.SYRIN SQ SCH (10:18)
[2021-01-11] MEDS: POTASSIUM CHLORIDE 10 MEQ in SODIUM CHLORIDE 0.45% 1,000 ML IVPB SCH (10:26)
[2021-01-11 13:14] LABS: EPI CELLS 1 /uL (0-25.1); HYALINE CASTS 0 /uL (0-3.1); URINE APPEARANCE CLEAR; URINE BACTERIA 3 /uL (0-1359); URINE BILIRUBIN NEGATIVE (NEGATIVE); URINE COLOR YELLOW; URINE GLUCOSE (UA) TRACE (NEGATIVE); URINE KETONE NEGATIVE (NEGATIVE); URINE LEUK ESTERASE NEGATIVE (NEGATIVE); URINE NITRITE NEGATIVE (NEGATIVE); URINE PROTEIN 1+ (NEGATIVE); URINE RBC 1 /uL (0-23.9); URINE UROBILINOGEN 0.2 mg/dL (0.2-1.0); URINE WBC 1 /uL (0-25.8)
[2021-01-11] MEDS ORDERED: CEFTRIAXONE 2 GM in DEXTROSE 5%-WATER 2 GM/50 ML BAG IVPB SCH (14:45)
[2021-01-11] MEDS ORDERED: CEFTRIAXONE 2 GM/100 ML BAG IVPB ONE (14:57)
[2021-01-11] MEDS: CEFTRIAXONE 2 GM in DEXTROSE 5%-WATER 2 GM/100 ML BAG IVPB SCH (15:05)
[2021-01-11] MEDS ORDERED: ALBUTEROL SO4 2.5/IPRATROPIUM 0.5 INH SOL 3 ML VIAL.NEB. NEB ONE (21:29)
[2021-01-11] MEDS: ALBUTEROL SO4 2.5/IPRATROPIUM 0.5 INH SOL 3 ML VIAL.NEB. NEB SCH (21:34)
[2021-01-11] MEDS ORDERED: VANCOMYCIN 750 MG in DEXTROSE 5%-WATER - 150 ML IVPB SCH (23:00)
[2021-01-12] MEDS: POTASSIUM CHLORIDE 10 MEQ in SODIUM CHLORIDE 0.45% 1,000 ML IVPB SCH ×3 (01:41→13:37)
[2021-01-12] MEDS: methylPREDNISolone NA SUCC 40 MG/1 ML VIAL IVPUSH SCH ×4 (02:37→23:09)
[2021-01-12] MEDS: ALBUTEROL SO4 2.5/IPRATROPIUM 0.5 INH SOL 3 ML VIAL.NEB. NEB SCH ×4 (08:30→20:05)
[2021-01-12] MEDS ORDERED: DEXTROSE 5%-WATER 100 ML IVPB ONE (09:31)
[2021-01-12] MEDS: CEFTRIAXONE 2 GM in DEXTROSE 5%-WATER 2 GM/100 ML BAG IVPB SCH (10:02)
[2021-01-12] MEDS: ENOXAPARIN NA (PORCINE) 30 MG/0.3 ML DISP.SYRIN SQ SCH (10:02)
[2021-01-12] MEDS ORDERED: guaiFENesin/D-M SUGAR-FREE/ACLHOL-FREE 5 ML UNIT DOSE PO PRN (13:03)
[2021-01-12] MEDS ORDERED: amLODIPine BESYLATE 2.5 MG TABLET (FP) PO ONE (18:39)
[2021-01-12] MEDS ORDERED: LABETALOL HCL 5 MG/1 ML (100MG/20 ML VIAL) IVPUSH ONE (18:42)
[2021-01-12] MEDS ORDERED: METOPROLOL TARTRATE 50 MG TABLET (FP) PO ONE (18:45)
[2021-01-13] MEDS: POTASSIUM CHLORIDE 10 MEQ in SODIUM CHLORIDE 0.45% 1,000 ML IVPB SCH ×2 (01:56→17:21)
[2021-01-13] MEDS: ALBUTEROL SO4 2.5/IPRATROPIUM 0.5 INH SOL 3 ML VIAL.NEB. NEB SCH ×3 (08:00→20:39)
[2021-01-13] MEDS ORDERED: DEXTROSE 5%-WATER 100 ML IVPB ONE (08:28)
[2021-01-13] MEDS: CEFTRIAXONE 2 GM in DEXTROSE 5%-WATER 2 GM/100 ML BAG IVPB SCH (10:55)
[2021-01-13] MEDS: ENOXAPARIN NA (PORCINE) 30 MG/0.3 ML DISP.SYRIN SQ SCH (10:55)
[2021-01-13] MEDS: methylPREDNISolone NA SUCC 40 MG/1 ML VIAL IVPUSH SCH ×3 (10:56→21:06)
[2021-01-13] MEDS: ASPIRIN COATED 81 MG TABLET.EC PO SCH (16:36)
[2021-01-13] MEDS: METOPROLOL TARTRATE 25 MG TABLET (FP) PO SCH ×2 (20:18→21:06)
[2021-01-13] MEDS: ATORVASTATIN CA 20 MG TABLET (FP) PO SCH ×2 (20:18→21:06)
[2021-01-13] MEDS ORDERED: METOPROLOL TARTRATE 25 MG TABLET (FP) PO ONE (21:30)
[2021-01-14] MEDS: POTASSIUM CHLORIDE 10 MEQ in SODIUM CHLORIDE 0.45% 1,000 ML IVPB SCH (05:41)
[2021-01-14] MEDS: ALBUTEROL SO4 2.5/IPRATROPIUM 0.5 INH SOL 3 ML VIAL.NEB. NEB SCH ×3 (08:22→20:07)
[2021-01-14 10:47] LABS: BASO % 0.1 % (0-2.0); HEMATOCRIT 33.8 % (32.4-45.2); HEMOGLOBIN 11.3 GM/dL (10.7-15.3); LYMPH % 7.7 % (8-40); MCH 33.1 pg (25.7-33.7); MCHC 33.4 g/dl (32.0-36.0); MEAN CELL VOLUME 99.3 fl (80-96); MEAN PLT VOLUME 7.4 fl (7.5-11.1); NEUT % 83.2 % (42.8-82.8); PLATELET COUNT 413 10^3/uL (134-434); RBC 3.41 M/mm3 (3.60-5.2); RDW 13.1 % (11.6-15.6); WHITE BLOOD COUNT 14.9 K/mm3 (4.0-10.0)
[2021-01-14] MEDS: CEFUROXIME AXETIL 500 MG TABLET PO SCH ×2 (10:48→22:26)
[2021-01-14] MEDS: ASPIRIN COATED 81 MG TABLET.EC PO SCH (10:48)
[2021-01-14] MEDS: predniSONE 20 MG TABLET (UD) PO SCH ×2 (10:48→22:26)
[2021-01-14] MEDS: ENOXAPARIN NA (PORCINE) 30 MG/0.3 ML DISP.SYRIN SQ SCH (10:48)
[2021-01-14] MEDS: METOPROLOL TARTRATE 25 MG TABLET (FP) PO SCH (10:48)
[2021-01-14 11:11] LABS: CALCIUM 8.9 mg/dL (8.5-10.1)
[2021-01-14 11:12] LABS: BLOOD UREA NITROGEN 34.5 mg/dL (7-18)
[2021-01-14 11:17] LABS: BILIRUBIN,TOTAL 0.4 mg/dL (0.2-1); TOT PROT 6.5 g/dl (6.4-8.2)
[2021-01-14] MEDS: LOSARTAN POTASSIUM 25 MG TABLET PO SCH (12:54)
[2021-01-14] MEDS: ATORVASTATIN CA 20 MG TABLET (FP) PO SCH (22:25)
[2021-01-14] MEDS: METOPROLOL TARTRATE 50 MG TABLET (FP) PO SCH (22:26)
[2021-01-15] MEDS: ALBUTEROL SO4 2.5/IPRATROPIUM 0.5 INH SOL 3 ML VIAL.NEB. NEB SCH ×3 (07:20→20:10)
[2021-01-15] MEDS: CEFUROXIME AXETIL 500 MG TABLET PO SCH ×2 (12:51→22:50)
[2021-01-15] MEDS: METOPROLOL TARTRATE 50 MG TABLET (FP) PO SCH ×2 (12:52→21:55)
[2021-01-15] MEDS: predniSONE 20 MG TABLET (UD) PO SCH (12:52)
[2021-01-15] MEDS: ASPIRIN COATED 81 MG TABLET.EC PO SCH (12:52)
[2021-01-15] MEDS: LOSARTAN POTASSIUM 25 MG TABLET PO SCH (12:52)
[2021-01-15] MEDS: ENOXAPARIN NA (PORCINE) 30 MG/0.3 ML DISP.SYRIN SQ SCH (12:59)
[2021-01-15] MEDS: ATORVASTATIN CA 20 MG TABLET (FP) PO SCH (21:55)
[2021-01-15] MEDS: predniSONE 10 MG TABLET (UD) PO SCH (21:55)
[2021-01-16] MEDS: ALBUTEROL SO4 2.5/IPRATROPIUM 0.5 INH SOL 3 ML VIAL.NEB. NEB SCH ×2 (07:20→14:44)
[2021-01-16] MEDS: ASPIRIN COATED 81 MG TABLET.EC PO SCH (09:41)
[2021-01-16] MEDS: LOSARTAN POTASSIUM 50 MG TABLET PO SCH (09:41)
[2021-01-16] MEDS: predniSONE 10 MG TABLET (UD) PO SCH ×2 (09:41→22:02)
[2021-01-16] MEDS: ENOXAPARIN NA (PORCINE) 30 MG/0.3 ML DISP.SYRIN SQ SCH (09:41)
[2021-01-16] MEDS: METOPROLOL TARTRATE 50 MG TABLET (FP) PO SCH ×2 (09:41→22:02)
[2021-01-16] MEDS: CEFUROXIME AXETIL 500 MG TABLET PO SCH ×2 (09:41→22:02)
[2021-01-16] MEDS ORDERED: PT OWN MED DRAWER 7, Y5N ONE ×2 (21:25→22:19)
[2021-01-16] MEDS: ATORVASTATIN CA 20 MG TABLET (FP) PO SCH (22:02)
[2021-01-17] MEDS ORDERED: PT OWN MED DRAWER 7, Y5N ONE (08:28)
[2021-01-17] MEDS: predniSONE 10 MG TABLET (UD) PO SCH ×2 (09:03→21:21)
[2021-01-17] MEDS: METOPROLOL TARTRATE 50 MG TABLET (FP) PO SCH ×2 (09:03→21:21)
[2021-01-17] MEDS: ASPIRIN COATED 81 MG TABLET.EC PO SCH (09:03)
[2021-01-17] MEDS: CEFUROXIME AXETIL 500 MG TABLET PO SCH ×2 (09:03→21:21)
[2021-01-17] MEDS: LOSARTAN POTASSIUM 50 MG TABLET PO SCH (09:04)
[2021-01-17] MEDS: ENOXAPARIN NA (PORCINE) 30 MG/0.3 ML DISP.SYRIN SQ SCH (09:04)
[2021-01-17] MEDS ORDERED: FUROSEMIDE 40 MG/4 ML INJECTABLE VIAL IVPUSH ONE (13:35)
[2021-01-17 15:53] LABS: BASO % 0.3 % (0-2.0); EOS % 0.3 % (0-4.5); HEMATOCRIT 37.6 % (32.4-45.2); HEMOGLOBIN 12.3 GM/dL (10.7-15.3); LYMPH % 7.2 % (8-40); MCH 32.3 pg (25.7-33.7); MCHC 32.7 g/dl (32.0-36.0); MEAN CELL VOLUME 98.9 fl (80-96); MEAN PLT VOLUME 7.4 fl (7.5-11.1); MONO % 4.9 % (3.8-10.2); NEUT % 87.3 % (42.8-82.8); PLATELET COUNT 498 10^3/uL (134-434); RBC 3.81 M/mm3 (3.60-5.2); RDW 13.6 % (11.6-15.6); WHITE BLOOD COUNT 15.5 K/mm3 (4.0-10.0)
[2021-01-17 16:14] LABS: ALBUMIN 2.8 g/dl (3.4-5.0); CALCIUM 8.4 mg/dL (8.5-10.1)
[2021-01-17 16:15] LABS: BLOOD UREA NITROGEN 42.5 mg/dL (7-18)
[2021-01-17 16:18] LABS: CREATININE 1.2 mg/dL (0.55-1.3)
[2021-01-17 16:19] LABS: BILIRUBIN,TOTAL 0.3 mg/dL (0.2-1); TOT PROT 6.1 g/dl (6.4-8.2)
[2021-01-17] MEDS: ATORVASTATIN CA 20 MG TABLET (FP) PO SCH (21:21)
[2021-01-18] MEDS ORDERED: FUROSEMIDE 40 MG/4 ML INJECTABLE VIAL IVPUSH ONE (08:02)
[2021-01-18 09:41] LABS: BASO % 0.2 % (0-2.0); EOS % 0.5 % (0-4.5); HEMATOCRIT 37.1 % (32.4-45.2); HEMOGLOBIN 12.2 GM/dL (10.7-15.3); LYMPH % 11.3 % (8-40); MCH 32.4 pg (25.7-33.7); MCHC 32.9 g/dl (32.0-36.0); MEAN CELL VOLUME 98.4 fl (80-96); MEAN PLT VOLUME 7.6 fl (7.5-11.1); MONO % 6.2 % (3.8-10.2); NEUT % 81.8 % (42.8-82.8); PLATELET COUNT 487 10^3/uL (134-434); RBC 3.77 M/mm3 (3.60-5.2); RDW 13.4 % (11.6-15.6); WHITE BLOOD COUNT 14.3 K/mm3 (4.0-10.0)
[2021-01-18] MEDS ORDERED: predniSONE 10 MG TABLET (UD) PO SCH (10:00)
[2021-01-18 10:08] LABS: BLOOD UREA NITROGEN 44.9 mg/dL (7-18); CALCIUM 8.3 mg/dL (8.5-10.1)
[2021-01-18 10:12] LABS: CREATININE 1.1 mg/dL (0.55-1.3)
[2021-01-18] MEDS ORDERED: PT OWN MED DRAWER 7, Y5N ONE (10:18)
[2021-01-18] MEDS ORDERED: FLU VACC QS2021-22(6MOS UP)/PF 60 MCG/0.5 ML SYRINGE IM ONE (10:20)
[2021-01-18] MEDS: METOPROLOL TARTRATE 50 MG TABLET (FP) PO SCH (10:25)
[2021-01-18] MEDS: ASPIRIN COATED 81 MG TABLET.EC PO SCH (10:25)
[2021-01-18] MEDS: CEFUROXIME AXETIL 500 MG TABLET PO SCH (10:25)
[2021-01-18] MEDS: LOSARTAN POTASSIUM 50 MG TABLET PO SCH (10:27)
[2021-01-18 13:51] VITALS: BP 135/53; PULSE 77; TEMP 97.6
[2021-01-19] MEDS ORDERED: FUROSEMIDE 40 MG TABLET (FP) PO SCH (10:00)
== END 2021-01-18 11:08 | disposition short-term general hospital (02) | DRG 871 ==
LOC: JER 21:23 → JERBED 23:05 → J4W 01-11 22:06
PROVIDERS: ADMIT Internal Medicine; ATTEND Family Medicine
DX: A41.9 Sepsis, unspecified organism (principal); J18.9 Pneumonia, unspecified organism; J96.01 Acute respiratory failure with hypoxia; J96.02 Acute respiratory failure with hypercapnia; J44.1 Chronic obstructive pulmonary disease with (acute) exacerbation; E87.2 Acidosis; I24.8 Other forms of acute ischemic heart disease; C34.90 Malignant neoplasm of unspecified part of unspecified bronchus or lung; I16.0 Hypertensive urgency; I27.20 Pulmonary hypertension, unspecified; D72.829 Elevated white blood cell count, unspecified
CPT/HCPCS: 36415; 71045-TC-FY; 71275-TC; 80048; 80053; 81003; 82550; 82803; 83605; 83735; 84484; 85025; 85610; 85730; 87040; 87086; 87899; 93005; 93010; 93306-TC; 94640; 94660; 97116-GP; 97161-GP; 99285-25; C9803; U0003; U0005

== ENCOUNTER 2022-02-15 16:56 | Inpatient (IN) | payer OTHER ==
[2022-02-15 17:42] VITALS: BMI 20.7
[2022-02-15] MEDS ORDERED: ACETAMINOPHEN 1000 MG/100 ML BAG IVPB ONE (21:01)
[2022-02-15] MEDS ORDERED: ACETAMINOPHEN INJECTION 100 ML IVPB ONE (21:23)
[2022-02-15 21:41] LABS: BASO % 0.5 % (0-2.0); EOS % 1.8 % (0-4.5); HEMATOCRIT 38.2 % (32.4-45.2); HEMOGLOBIN 12.5 GM/dL (10.7-15.3); LYMPH % 21.7 % (8-40); MCH 31.7 pg (25.7-33.7); MCHC 32.7 g/dl (32.0-36.0); MEAN PLT VOLUME 6.4 fl (7.5-11.1); MONO % 9.9 % (3.8-10.2); NEUT % 66.1 % (42.8-82.8); PLATELET COUNT 600 10^3/uL (134-434); RBC 3.94 M/mm3 (3.60-5.2); WHITE BLOOD COUNT 10.9 K/mm3 (4.0-10.0)
[2022-02-15 22:00] LABS: ALBUMIN 3.2 g/dl (3.4-5.0); CALCIUM 8.8 mg/dL (8.5-10.1)
[2022-02-15 22:01] LABS: BLOOD UREA NITROGEN 17.6 mg/dL (7-18)
[2022-02-15 22:04] LABS: CREATININE 0.6 mg/dL (0.55-1.3)
[2022-02-15 22:05] LABS: BILIRUBIN,TOTAL 0.4 mg/dL (0.2-1); TOT PROT 6.3 g/dl (6.4-8.2)
[2022-02-16] MEDS ORDERED: ACETAMINOPHEN 1000 MG/100 ML BAG IVPB PRN (00:26)
[2022-02-16] MEDS ORDERED: ALBUTEROL SO4 0.083% IH SOL 2.5 MG/3 ML VIAL.NEB. NEB PRN (00:26)
[2022-02-16] MEDS: amLODIPine BESYLATE 5 MG TABLET (FP) PO SCH ×2 (00:30→12:57)
[2022-02-16] MEDS ORDERED: LIDOCAINE 5% TOPICAL PATCH TP ONE (00:40)
[2022-02-16] MEDS ORDERED: amLODIPine BESYLATE 5 MG TABLET (FP) ONE (02:14)
[2022-02-16] MEDS ORDERED: BENZOCAINE/MENTH/CETYLPYRD CL 1 EACH LOZENGE MM ONE ×2 (02:14→08:45)
[2022-02-16 02:32] LABS: EPI CELLS 1 /uL (0-25.1); HYALINE CASTS 0 /uL (0-3.1); URINE APPEARANCE CLEAR; URINE BACTERIA 8142 /uL (0-1359); URINE BILIRUBIN NEGATIVE (NEGATIVE); URINE COLOR YELLOW; URINE GLUCOSE (UA) NEGATIVE (NEGATIVE); URINE KETONE NEGATIVE (NEGATIVE); URINE LEUK ESTERASE 2+ (NEGATIVE); URINE NITRITE POSITIVE (NEGATIVE); URINE PROTEIN NEGATIVE (NEGATIVE); URINE RBC 5 /uL (0-23.9); URINE UROBILINOGEN 0.2 mg/dL (0.2-1.0); URINE WBC 184 /uL (0-25.8)
[2022-02-16] MEDS: BENZOCAINE/MENTH/CETYLPYRD CL 1 EACH LOZENGE MM PRN (02:49)
[2022-02-16] MEDS ORDERED: POLYETHYLENE GLYCOL (HEALTHYLAX) 3350 17 GM PACKET ONE (08:33)
[2022-02-16] MEDS ORDERED: ASPIRIN 81 MG CHEWABLE TABLETS ONE (08:34)
[2022-02-16] MEDS ORDERED: CLOPIDOGREL BISULFATE 75 MG TABLET (FP) ONE (08:34)
[2022-02-16] MEDS ORDERED: ESCITALOPRAM OXALATE 10 MG TABLET ONE (08:34)
[2022-02-16] MEDS ORDERED: CYCLOBENZAPRINE HCL 5 MG TABLET ONE (08:34)
[2022-02-16 08:40] LABS: BASO % 0.6 % (0-2.0); EOS % 1.8 % (0-4.5); HEMOGLOBIN 12.2 GM/dL (10.7-15.3); LYMPH % 22.1 % (8-40); MCH 32.2 pg (25.7-33.7); MEAN CELL VOLUME 97.5 fl (80-96); MEAN PLT VOLUME 6.7 fl (7.5-11.1); MONO % 9.2 % (3.8-10.2); NEUT % 66.3 % (42.8-82.8); PLATELET COUNT 555 10^3/uL (134-434); RDW 12.9 % (11.6-15.6); WHITE BLOOD COUNT 8.9 K/mm3 (4.0-10.0)
[2022-02-16] MEDS: CLOPIDOGREL BISULFATE 75 MG TABLET (FP) PO SCH (09:01)
[2022-02-16] MEDS: ASPIRIN 81 MG CHEWABLE TABLETS PO SCH (09:01)
[2022-02-16] MEDS: POLYETHYLENE GLYCOL (HEALTHYLAX) 3350 17 GM PACKET PO SCH (09:01)
[2022-02-16] MEDS: ESCITALOPRAM OXALATE 10 MG TABLET PO SCH (09:01)
[2022-02-16] MEDS: CYCLOBENZAPRINE HCL 5 MG TABLET PO SCH (09:01)
[2022-02-16] MEDS: ENOXAPARIN NA (PORCINE) 40 MG/0.4 ML DISP.SYRIN SQ SCH (09:01)
[2022-02-16 09:11] LABS: BLOOD UREA NITROGEN 17.6 mg/dL (7-18); CALCIUM 8.9 mg/dL (8.5-10.1)
[2022-02-16 09:12] LABS: ALBUMIN 3.1 g/dl (3.4-5.0); MAGNESIUM 1.9 mg/dL (1.8-2.4)
[2022-02-16 09:13] LABS: PHOSPHOROUS 3.9 mg/dL (2.5-4.9); TOT PROT 6.1 g/dl (6.4-8.2)
[2022-02-16 09:14] LABS: BILIRUBIN,TOTAL 0.3 mg/dL (0.2-1)
[2022-02-16 09:15] LABS: CREATININE 0.6 mg/dL (0.55-1.3)
[2022-02-16 11:33] VITALS: RESP 18
[2022-02-16] MEDS ORDERED: ZOLEDRONIC ACID IVPB ONE (19:03)
[2022-02-16] MEDS ORDERED: DEXTROSE 5% IVPB ONE (19:03)
[2022-02-16] MEDS ORDERED: [UNRECOGNIZED DRUG - OTHER] IVPB ONE (19:03)
[2022-02-16] MEDS ORDERED: WATER IVPB ONE (19:03)
[2022-02-16] MEDS: MELATONIN 5 MG TABLETS PO SCH (21:42)
[2022-02-16] MEDS: LIDOCAINE PATCH REMOVAL MC SCH (21:43)
[2022-02-17] MEDS: CYANOCOBALAMIN (VITAMIN B-12) 1000 MCG/1 ML VIAL IM SCH (10:10)
[2022-02-17] MEDS: ESCITALOPRAM OXALATE 10 MG TABLET PO SCH (10:10)
[2022-02-17] MEDS: POLYETHYLENE GLYCOL (HEALTHYLAX) 3350 17 GM PACKET PO SCH (10:10)
[2022-02-17] MEDS: ASPIRIN 81 MG CHEWABLE TABLETS PO SCH (10:10)
[2022-02-17] MEDS: CYCLOBENZAPRINE HCL 5 MG TABLET PO SCH (10:10)
[2022-02-17] MEDS: CLOPIDOGREL BISULFATE 75 MG TABLET (FP) PO SCH (10:10)
[2022-02-17] MEDS: ENOXAPARIN NA (PORCINE) 40 MG/0.4 ML DISP.SYRIN SQ SCH (10:10)
[2022-02-17] MEDS: amLODIPine BESYLATE 5 MG TABLET (FP) PO SCH (10:10)
[2022-02-17] MEDS: BENZOCAINE/MENTH/CETYLPYRD CL 1 EACH LOZENGE MM PRN ×2 (10:11→17:26)
[2022-02-17] MEDS: ACETAMINOPHEN 325 MG TABLET (FP) PO PRN (10:12)
[2022-02-17] MEDS: CALCITONIN - SALMON SYNTHETIC 200 UNITS/SPRAY NS SCH (11:19)
[2022-02-17] MEDS: NYSTATIN 500,000 UNITS/5 ML SUSPENSION PO SCH ×2 (12:45→17:25)
[2022-02-17] MEDS: AMOX TR/POT CLAV 875MG/125MG TABLETS (FP) PO SCH (17:24)
[2022-02-17] MEDS: MELATONIN 5 MG TABLETS PO SCH (21:32)
[2022-02-17] MEDS: LIDOCAINE PATCH REMOVAL MC SCH (21:38)
[2022-02-18] MEDS: NYSTATIN 500,000 UNITS/5 ML SUSPENSION PO SCH ×4 (00:16→17:24)
[2022-02-18 05:44] LABS: THROAT:GRP A STREP NOT DETECTED (NOTDETECTED)
[2022-02-18 05:49] LABS: SARS COV-2 MOLECULAR IN-HOUSE NEGATIVE (NEGATIVE)
[2022-02-18] MEDS: AMOX TR/POT CLAV 875MG/125MG TABLETS (FP) PO SCH ×2 (08:53→17:24)
[2022-02-18] MEDS: ACETAMINOPHEN 325 MG TABLET (FP) PO PRN (08:55)
[2022-02-18] MEDS: CLOPIDOGREL BISULFATE 75 MG TABLET (FP) PO SCH (08:59)
[2022-02-18] MEDS: ENOXAPARIN NA (PORCINE) 40 MG/0.4 ML DISP.SYRIN SQ SCH (08:59)
[2022-02-18] MEDS: CYCLOBENZAPRINE HCL 5 MG TABLET PO SCH (08:59)
[2022-02-18] MEDS: ESCITALOPRAM OXALATE 10 MG TABLET PO SCH (08:59)
[2022-02-18] MEDS: amLODIPine BESYLATE 5 MG TABLET (FP) PO SCH (08:59)
[2022-02-18] MEDS: ASPIRIN 81 MG CHEWABLE TABLETS PO SCH (08:59)
[2022-02-18] MEDS: POLYETHYLENE GLYCOL (HEALTHYLAX) 3350 17 GM PACKET PO SCH (08:59)
[2022-02-18] MEDS: CALCITONIN - SALMON SYNTHETIC 200 UNITS/SPRAY NS SCH (09:00)
[2022-02-18] MEDS: BENZOCAINE/MENTH/CETYLPYRD CL 1 EACH LOZENGE MM PRN (09:29)
[2022-02-18] MEDS: CYANOCOBALAMIN (VITAMIN B-12) 1000 MCG/1 ML VIAL IM SCH (09:29)
[2022-02-18 12:58] VITALS: BP 103/75; PULSE 76; TEMP 98.2
== END 2022-02-18 17:52 | DRG 184 ==
LOC: JER 16:56 → JERBED 23:28 → OBSVTOIN 02-16 11:10 → J6S 02-16 12:08 → J8W 02-18 11:28
PROVIDERS: ADMIT Internal Medicine; ATTEND Family Medicine
DX: S22.41XA Multiple fractures of ribs, right side, initial encounter for closed fracture (principal); N39.0 Urinary tract infection, site not specified; I16.0 Hypertensive urgency; I10 Essential (primary) hypertension; J44.9 Chronic obstructive pulmonary disease, unspecified; I25.10 Atherosclerotic heart disease of native coronary artery without angina pectoris; R91.8 Other nonspecific abnormal finding of lung field; M54.9 Dorsalgia, unspecified; M19.90 Unspecified osteoarthritis, unspecified site; Z79.01 Long term (current) use of anticoagulants; W19.XXXA Unspecified fall, initial encounter; Y93.9 Activity, unspecified; Y92.89 Other specified places as the place of occurrence of the external cause; Y99.9 Unspecified external cause status; K21.9 Gastro-esophageal reflux disease without esophagitis
CPT/HCPCS: 0241U-QW; 36415; 71045-TC-FY; 71250-TC; 72050-TC-FY; 72070-TC-FY; 72100-TC-FY; 72170-TC-FY; 80053; 81003; 83735; 84100; 85025; 87086; 87186; 87651; 93005; 93010; 97116-GP; 97162-GP; 99285-25; C9803-CS; G0378; J3489; U0003; U0005

== ENCOUNTER 2022-03-11 12:21 | Inpatient (IN) | payer OTHER ==
[2022-03-11 12:58] VITALS: BMI 21.2
[2022-03-11] MEDS ORDERED: ACETAMINOPHEN 1000 MG/100 ML BAG IVPB ONE (13:30)
[2022-03-11] MEDS ORDERED: PIPERACILLIN/TAZOB 4.5 GM 4.5 GM in DEXTROSE 5%-WATER 100 ML IVPB ONE ×2 (13:30→20:44)
[2022-03-11] MEDS ORDERED: VANCOMYCIN 1 GM in D5W (PRE-DOCKED) 1,000 MG/250 ML IVPB ONE (13:32)
[2022-03-11] MEDS ORDERED: LACTATED RINGERS SOLUTION 1000 ML INFUS.BAG IV ONE ×2 (13:33→19:42)
[2022-03-11 14:00] LABS: VENOUS BASE EXCESS -1.5 mmol/L (-2-2); VENOUS O2 SATURATION 73.6 % (70-80); VENOUS PH 7.416 (7.310-7.410)
[2022-03-11 14:01] LABS: HEMATOCRIT 34.5 % (32.4-45.2); HEMOGLOBIN 11.3 GM/dL (10.7-15.3); MCH 31.4 pg (25.7-33.7); MCHC 32.6 g/dl (32.0-36.0); MEAN CELL VOLUME 96.5 fl (80-96); MEAN PLT VOLUME 6.7 fl (7.5-11.1); PLATELET COUNT 722 10^3/uL (134-434); RBC 3.58 M/mm3 (3.60-5.2); RDW 13.5 % (11.6-15.6)
[2022-03-11] MEDS ORDERED: ACETAMINOPHEN INJECTION 100 ML IVPB ONE (14:04)
[2022-03-11] MEDS ORDERED: PIPERACILLIN/TAZOB 4.5 GM 4.5 GM/100 ML BAG IVPB ONE (14:04)
[2022-03-11] MEDS ORDERED: VANCOMYCIN/WATER FOR INJ (PEG) 1,000 MG/200 ML BAG IVPB ONE (14:05)
[2022-03-11 14:08] LABS: INR 1.24 (0.83-1.09); PROTHROMBIN TIME (PATIENT) 14.3 SEC (9.7-13.0); WHITE BLOOD COUNT 38.9 K/mm3 (4.0-10.0)
[2022-03-11 14:10] LABS: ACTIVATED PTT 29.8 SECONDS (25.2-36.5)
[2022-03-11 14:29] LABS: CHLORIDE 107 mmol/L (98-107); SODIUM 141 mmol/L (136-145)
[2022-03-11 14:32] LABS: ALBUMIN 2.4 g/dl (3.4-5.0); ANION GAP 10 MMOL/L (8-16); BLOOD UREA NITROGEN 17.7 mg/dL (7-18); CALCIUM 7.8 mg/dL (8.5-10.1); CO2 24 mmol/L (21-32); GLUCOSE,RANDOM 108 mg/dL (74-106); LIPASE 37 U/L (73-393)
[2022-03-11 14:35] LABS: CREATININE 0.7 mg/dL (0.55-1.3); SGOT/AST 7 U/L (15-37); SGPT/ALT 8 U/L (13-61)
[2022-03-11 14:37] LABS: BILIRUBIN,TOTAL 0.6 mg/dL (0.2-1); TOT PROT 5.9 g/dl (6.4-8.2)
[2022-03-11 14:38] LABS: ALK PHOS 149 U/L (45-117)
[2022-03-11 14:39] LABS: ANISOCYTOSIS 0; MACROCYTOSIS 0
[2022-03-11 14:51] LABS: ERYTHROCYTE SEDIMENTATION RATE 83 mm/hr (0-30)
[2022-03-12] MEDS ORDERED: ALBUTEROL SO4 0.083% IH SOL 2.5 MG/3 ML VIAL.NEB. NEB PRN (00:46)
[2022-03-12] MEDS ORDERED: traMADol HCL 50 MG TABLET PO PRN (00:46)
[2022-03-12] MEDS: SODIUM CHLORIDE 1,000 ML IV SCH ×2 (02:16→21:29)
[2022-03-12] MEDS ORDERED: VANCOMYCIN/WATER FOR INJ (PEG) 1,000 MG/200 ML BAG IVPB ONE (02:55)
[2022-03-12] MEDS: VANCOMYCIN/WATER FOR INJ (PEG) 750 MG/150 ML BAG IVPB SCH ×2 (02:57→14:41)
[2022-03-12 08:21] LABS: HEMATOCRIT 34.9 % (32.4-45.2); HEMOGLOBIN 11.3 GM/dL (10.7-15.3); MCH 31.6 pg (25.7-33.7); MCHC 32.4 g/dl (32.0-36.0); MEAN CELL VOLUME 97.6 fl (80-96); MEAN PLT VOLUME 6.7 fl (7.5-11.1); PLATELET COUNT 748 10^3/uL (134-434); RBC 3.58 M/mm3 (3.60-5.2); RDW 13.9 % (11.6-15.6)
[2022-03-12 08:27] LABS: ALBUMIN 2.2 g/dl (3.4-5.0); BLOOD UREA NITROGEN 17.6 mg/dL (7-18); CALCIUM 8.1 mg/dL (8.5-10.1); MAGNESIUM 2.1 mg/dL (1.8-2.4)
[2022-03-12 08:30] LABS: CREATININE 0.7 mg/dL (0.55-1.3); PHOSPHOROUS 2.2 mg/dL (2.5-4.9)
[2022-03-12 08:31] LABS: WHITE BLOOD COUNT 37.1 K/mm3 (4.0-10.0)
[2022-03-12 08:32] LABS: BILIRUBIN,TOTAL 0.7 mg/dL (0.2-1); TOT PROT 5.7 g/dl (6.4-8.2)
[2022-03-12 09:39] LABS: ANISOCYTOSIS 0; HELMET CELLS 0; HOWELL-JOLLY BODIES 0; MACROCYTOSIS 0; OVALOCYTE 0; ROULEAU 0; SICKELED CELLS 0; TARGET CELLS 0; TEAR DROP CELLS 0; TOXIC GRANULATION 0
[2022-03-12] MEDS: MULTIVITAMINS (DAILY MVI) TABLET (FP) PO SCH (09:43)
[2022-03-12] MEDS: CLOPIDOGREL BISULFATE 75 MG TABLET (FP) PO SCH (09:43)
[2022-03-12] MEDS: ESCITALOPRAM OXALATE 10 MG TABLET PO SCH (09:43)
[2022-03-12] MEDS: ENOXAPARIN NA (PORCINE) 30 MG/0.3 ML DISP.SYRIN SQ SCH (09:44)
[2022-03-12] MEDS: LIDOCAINE 5% TOPICAL PATCH TP SCH (09:45)
[2022-03-12] MEDS: CALCITONIN - SALMON SYNTHETIC 200 UNITS/SPRAY NS SCH (09:56)
[2022-03-12] MEDS: MELATONIN 5 MG TABLETS PO SCH (21:29)
[2022-03-12] MEDS: LIDOCAINE PATCH REMOVAL MC SCH (21:29)
[2022-03-12] MEDS ORDERED: PATIENT'S OWN MEDICATION (NON-FORMULARY) (Lidocaine Patch Removal 1 EACH Each) MC SCH ×2 (22:00)
[2022-03-13] MEDS ORDERED: VANCOMYCIN/WATER FOR INJ (PEG) 750 MG/150 ML BAG IVPB SCH (02:00)
[2022-03-13 08:20] LABS: HEMOGLOBIN 11.3 GM/dL (10.7-15.3); MCH 31.3 pg (25.7-33.7); MCHC 32.2 g/dl (32.0-36.0); MEAN CELL VOLUME 97.1 fl (80-96); PLATELET COUNT 792 10^3/uL (134-434); RBC 3.61 M/mm3 (3.60-5.2); RDW 14.1 % (11.6-15.6); WHITE BLOOD COUNT 26.7 K/mm3 (4.0-10.0)
[2022-03-13 08:35] LABS: BLOOD UREA NITROGEN 21.4 mg/dL (7-18); CALCIUM 8.2 mg/dL (8.5-10.1)
[2022-03-13 08:36] LABS: ALBUMIN 2.3 g/dl (3.4-5.0)
[2022-03-13 08:39] LABS: CREATININE 0.6 mg/dL (0.55-1.3)
[2022-03-13 08:41] LABS: BILIRUBIN,TOTAL 0.6 mg/dL (0.2-1); TOT PROT 5.6 g/dl (6.4-8.2)
[2022-03-13 09:45] LABS: ANISOCYTOSIS 0; HELMET CELLS 0; HOWELL-JOLLY BODIES 0; MACROCYTOSIS 0; OVALOCYTE 0; ROULEAU 0; SICKELED CELLS 0; TARGET CELLS 0; TEAR DROP CELLS 0; TOXIC GRANULATION 0
[2022-03-13] MEDS: MULTIVITAMINS (DAILY MVI) TABLET (FP) PO SCH (10:55)
[2022-03-13] MEDS: ESCITALOPRAM OXALATE 10 MG TABLET PO SCH (10:55)
[2022-03-13] MEDS: ENOXAPARIN NA (PORCINE) 30 MG/0.3 ML DISP.SYRIN SQ SCH (10:55)
[2022-03-13] MEDS: LIDOCAINE 5% TOPICAL PATCH TP SCH (10:55)
[2022-03-13] MEDS: CLOPIDOGREL BISULFATE 75 MG TABLET (FP) PO SCH (10:55)
[2022-03-13] MEDS: CALCITONIN - SALMON SYNTHETIC 200 UNITS/SPRAY NS SCH (11:00)
[2022-03-13 11:44] LABS: EPI CELLS 35 /uL (0-25.1); HYALINE CASTS 6 /uL (0-3.1); PH,URINE 5.5 (5.0-8.0); URINE APPEARANCE CLEAR; URINE BACTERIA 15 /uL (0-1359); URINE BILIRUBIN NEGATIVE (NEGATIVE); URINE COLOR YELLOW; URINE GLUCOSE (UA) NEGATIVE (NEGATIVE); URINE KETONE 1+ (NEGATIVE); URINE LEUK ESTERASE NEGATIVE (NEGATIVE); URINE NITRITE NEGATIVE (NEGATIVE); URINE PROTEIN 1+ (NEGATIVE); URINE UROBILINOGEN 0.2 mg/dL (0.2-1.0); URINE WBC 44 /uL (0-25.8)
[2022-03-13] MEDS: VANCOMYCIN 250 MG/5 ML ORAL SOLUTION PO SCH ×2 (12:36→17:39)
[2022-03-13] MEDS: POTASSIUM CHLORIDE ORAL LIQUID 20 MEQ/15 ML PO SCH (15:07)
[2022-03-13] MEDS: LIDOCAINE PATCH REMOVAL MC SCH (21:03)
[2022-03-13] MEDS: MELATONIN 5 MG TABLETS PO SCH (21:03)
[2022-03-14] MEDS: VANCOMYCIN 250 MG/5 ML ORAL SOLUTION PO SCH ×4 (00:25→17:31)
[2022-03-14 07:27] LABS: BASO % 0.5 % (0-2.0); EOS % 0.3 % (0-4.5); HEMATOCRIT 34.6 % (32.4-45.2); LYMPH % 7.9 % (8-40); MCH 30.8 pg (25.7-33.7); MCHC 31.9 g/dl (32.0-36.0); MEAN CELL VOLUME 96.7 fl (80-96); MEAN PLT VOLUME 6.7 fl (7.5-11.1); MONO % 6.2 % (3.8-10.2); NEUT % 85.1 % (42.8-82.8); PLATELET COUNT 811 10^3/uL (134-434); RBC 3.58 M/mm3 (3.60-5.2); RDW 14.1 % (11.6-15.6); WHITE BLOOD COUNT 18.2 K/mm3 (4.0-10.0)
[2022-03-14 07:51] LABS: ALBUMIN 2.4 g/dl (3.4-5.0); BLOOD UREA NITROGEN 20.1 mg/dL (7-18); CALCIUM 8.7 mg/dL (8.5-10.1)
[2022-03-14 07:52] LABS: CREATININE 0.6 mg/dL (0.55-1.3)
[2022-03-14 07:53] LABS: TOT PROT 5.6 g/dl (6.4-8.2)
[2022-03-14 07:54] LABS: BILIRUBIN,TOTAL 0.6 mg/dL (0.2-1)
[2022-03-14] MEDS: ESCITALOPRAM OXALATE 10 MG TABLET PO SCH (10:08)
[2022-03-14] MEDS: MULTIVITAMINS (DAILY MVI) TABLET (FP) PO SCH (10:08)
[2022-03-14] MEDS: CLOPIDOGREL BISULFATE 75 MG TABLET (FP) PO SCH (10:08)
[2022-03-14] MEDS: POTASSIUM CHLORIDE ORAL LIQUID 20 MEQ/15 ML PO SCH (10:09)
[2022-03-14] MEDS: CALCITONIN - SALMON SYNTHETIC 200 UNITS/SPRAY NS SCH (10:30)
[2022-03-14] MEDS: LIDOCAINE 5% TOPICAL PATCH TP SCH (10:30)
[2022-03-14] MEDS: ENOXAPARIN NA (PORCINE) 40 MG/0.4 ML DISP.SYRIN SQ SCH (10:30)
[2022-03-14] MEDS: ENOXAPARIN NA (PORCINE) 30 MG/0.3 ML DISP.SYRIN SQ SCH (10:31)
[2022-03-14] MEDS: LIDOCAINE PATCH REMOVAL MC SCH (22:22)
[2022-03-14] MEDS: MELATONIN 5 MG TABLETS PO SCH (22:22)
[2022-03-15 01:28] VITALS: RESP 20
[2022-03-15] MEDS: VANCOMYCIN 250 MG/5 ML ORAL SOLUTION PO SCH ×3 (01:51→14:06)
[2022-03-15] MEDS: ENOXAPARIN NA (PORCINE) 40 MG/0.4 ML DISP.SYRIN SQ SCH (09:52)
[2022-03-15] MEDS: CALCITONIN - SALMON SYNTHETIC 200 UNITS/SPRAY NS SCH (09:53)
[2022-03-15] MEDS: ESCITALOPRAM OXALATE 10 MG TABLET PO SCH (09:53)
[2022-03-15] MEDS: LIDOCAINE 5% TOPICAL PATCH TP SCH (09:53)
[2022-03-15] MEDS: MULTIVITAMINS (DAILY MVI) TABLET (FP) PO SCH (09:53)
[2022-03-15] MEDS: CLOPIDOGREL BISULFATE 75 MG TABLET (FP) PO SCH (09:53)
[2022-03-15] MEDS: POTASSIUM CHLORIDE ORAL LIQUID 20 MEQ/15 ML PO SCH (09:58)
[2022-03-15 10:50] VITALS: BP 135/58; PULSE 111; TEMP 96.7
== END 2022-03-15 16:36 | DRG 373 ==
LOC: JER 12:21 → JERBED 13:34 → J4W 03-12 05:52
PROVIDERS: ADMIT Internal Medicine; ATTEND Family Medicine
DX: A04.72 Enterocolitis due to Clostridium difficile, not specified as recurrent (principal); K52.9 Noninfective gastroenteritis and colitis, unspecified; E78.5 Hyperlipidemia, unspecified; K21.9 Gastro-esophageal reflux disease without esophagitis; I10 Essential (primary) hypertension; J44.9 Chronic obstructive pulmonary disease, unspecified; D72.829 Elevated white blood cell count, unspecified; I25.10 Atherosclerotic heart disease of native coronary artery without angina pectoris; D50.9 Iron deficiency anemia, unspecified; M81.0 Age-related osteoporosis without current pathological fracture; J84.10 Pulmonary fibrosis, unspecified; G47.30 Sleep apnea, unspecified; M54.9 Dorsalgia, unspecified; D75.839 Thrombocytosis, unspecified
CPT/HCPCS: 0241U-QW; 36415; 71045-TC-FY; 74177-TC; 80053; 81003; 82550; 82553; 82803; 83605; 83690; 83735; 84100; 84484; 85025; 85379; 85384; 85610; 85651; 85730; 86140; 87040; 87045; 87046; 87324; 87449; 99285-25; Q9967

== ENCOUNTER 2022-09-14 14:53 | Inpatient (IN) | payer OTHER ==
[2022-09-14] MEDS ORDERED: ALBUTEROL SO4 2.5/IPRATROPIUM 0.5 INH SOL 3 ML VIAL.NEB. NEB ONE ×2 (15:00→16:13)
[2022-09-14] MEDS ORDERED: MAGNESIUM SULFATE IN WATER 2 GM/50 ML IVPB IVPB ONE (15:05)
[2022-09-14] MEDS ORDERED: RAPID SEQUENCE INTUBATION KIT NR ONE (15:10)
[2022-09-14] MEDS ORDERED: MIDAZOLAM 100 MG in SODIUM CHLORIDE 100 ML IVPB SCH (15:45)
[2022-09-14] MEDS ORDERED: FENTANYL NS IVPB 500 MCG/100 ML BAG IVPB SCH (15:45)
[2022-09-14] MEDS ORDERED: AZITHROMYCIN IVPB 500 MG in DEXTROSE 5%-WATER - 250 ML IVPB ONE (16:00)
[2022-09-14] MEDS ORDERED: MAGNESIUM SULF 50% (8.12 MEQ/2 ML-1 GM VIAL) IVPB ONE (16:12)
[2022-09-14] MEDS ORDERED: ROCURONIUM BROMIDE 50 MG/5 ML VIAL IV ONE (16:13)
[2022-09-14] MEDS ORDERED: ETOMIDATE 20 MG/10 ML VIAL IVPUSH ONE (16:13)
[2022-09-14 16:34] LABS: BASO % 1.1 % (0-2.0); EOS % 1.3 % (0-4.5); HEMATOCRIT 41.9 % (32.4-45.2); LYMPH % 33.7 % (8-40); MCH 32.8 pg (25.7-33.7); MCHC 31.2 g/dl (32.0-36.0); MEAN CELL VOLUME 105.3 fl (80-96); MEAN PLT VOLUME 7.5 fl (7.5-11.1); MONO % 5.1 % (3.8-10.2); NEUT % 58.8 % (42.8-82.8); PLATELET COUNT 610 10^3/uL (134-434); RBC 3.98 M/mm3 (3.60-5.2); RDW 13.9 % (11.6-15.6); WHITE BLOOD COUNT 16.5 K/mm3 (4.0-10.0)
[2022-09-14 16:36] LABS: INR 0.94 (0.83-1.09); PROTHROMBIN TIME (PATIENT) 10.9 SEC (9.7-13.0)
[2022-09-14 16:38] LABS: VENOUS BASE EXCESS -12.1 mmol/L (-2-2); VENOUS O2 SATURATION 66.8 % (70-80)
[2022-09-14 16:39] LABS: ACTIVATED PTT 29.4 SECONDS (25.2-36.5)
[2022-09-14 16:41] LABS: VENOUS PCO2 97.3 mmHg (38-52); VENOUS PH 6.974 (7.310-7.410)
[2022-09-14 16:56] LABS: ANISOCYTOSIS 1+; MACROCYTOSIS 2+
[2022-09-14] MEDS ORDERED: SODIUM CHLORIDE 0.9% 1000 ML INFUS.BAG IV ONE ×2 (16:57→17:27)
[2022-09-14 17:02] LABS: POTASSIUM 5.1 mmol/L (3.5-5.1)
[2022-09-14 17:04] LABS: ALBUMIN 3.3 g/dl (3.4-5.0); BLOOD UREA NITROGEN 20.3 mg/dL (7-18); CALCIUM 8.8 mg/dL (8.5-10.1)
[2022-09-14] MEDS ORDERED: MIDAZOLAM HCL 2 MG/2 ML SINGLE DOSE VIAL IVPUSH ONE (17:06)
[2022-09-14 17:08] LABS: EPI CELLS 24 /uL (0-25.1); HYALINE CASTS 2 /uL (0-3.1); URINE APPEARANCE CLEAR; URINE BACTERIA 18 /uL (0-1359); URINE BILIRUBIN NEGATIVE (NEGATIVE); URINE COLOR YELLOW; URINE GLUCOSE (UA) 1+ (NEGATIVE); URINE KETONE NEGATIVE (NEGATIVE); URINE LEUK ESTERASE NEGATIVE (NEGATIVE); URINE NITRITE NEGATIVE (NEGATIVE); URINE PROTEIN 3+ (NEGATIVE); URINE RBC 6 /uL (0-23.9); URINE UROBILINOGEN 0.2 mg/dL (0.2-1.0); URINE WBC 19 /uL (0-25.8)
[2022-09-14 17:10] LABS: BILIRUBIN,TOTAL 0.2 mg/dL (0.2-1)
[2022-09-14] MEDS ORDERED: MIDAZOLAM HCL 2 MG/2 ML SINGLE DOSE VIAL ONE (17:12)
[2022-09-14 17:13] LABS: N-TERMINAL BNP 9072.8 pg/ml (5-450)
[2022-09-14] MEDS ORDERED: FENTANYL CITRATE/PF 50 MCG/ML VIAL ONE (17:13)
[2022-09-14] MEDS ORDERED: AZITHROMYCIN IVPB 500 MG/250 ML BAG IVPB ONE (17:13)
[2022-09-14] MEDS ORDERED: MIDAZOLAM IN 0.9 % SOD.CHLORID 1 MG/1 ML PLAST..BAG ONE (17:20)
[2022-09-14] MEDS ORDERED: INSULIN (NOVOLOG) ASPART 100 UNITS/ML 10ML VIAL SQ ONE (17:33)
[2022-09-14] MEDS ORDERED: NOREPINEPHRINE BITARTRATE/D5W 8 MG/250 ML BAG IVPB SCH (17:45)
[2022-09-14] MEDS ORDERED: VASOPRESSIN 20 UNITS/ML VIAL IV ONE (18:25)
[2022-09-14] MEDS ORDERED: INSULIN (NOVOLOG) ASPART 100 UNITS/ML 10ML VIAL ONE ×2 (18:50→19:21)
[2022-09-14] MEDS: PIPERACILLIN/TAZOB 3.375 GM 3.375 GM in DEXTROSE 5%-WATER - 50 ML IVPB SCH ×2 (18:56→23:10)
[2022-09-14] MEDS: NOREPINEPHRINE BITARTRATE/D5W 8 MG/250 ML BAG IVPB SCH ×2 (18:59→19:30)
[2022-09-14] MEDS: VASOPRESSIN 40 UNITS/100 ML BAG IV SCH (18:59)
[2022-09-14] MEDS: DEXMEDETOMIDINE PREMIX 400 MCG/100 ML BAG IVPB SCH (19:00)
[2022-09-14] MEDS: ALBUTEROL SO4 2.5/IPRATROPIUM 0.5 INH SOL 3 ML VIAL.NEB. NEB SCH (20:43)
[2022-09-14] MEDS ORDERED: VANCOMYCIN 1 GM in D5W (PRE-DOCKED) 1,000 MG/250 ML (RESTRICTED TO ID ONLY IVPB SCH (22:00)
[2022-09-14 22:17] LABS: ARTERIAL BLD GAS O2 SATURATION 99.6 % (95-98); ARTERIAL BLOOD GAS BASE EXCESS -10.6 mmol/L (-2-2); ARTERIAL BLOOD GAS PO2 316.3 mmHg (80-100); ARTERIAL BLOOD GAS pH 7.255 (7.350-7.450)
[2022-09-14] MEDS ORDERED: LACTATED RINGERS SOLUTION 1,000 ML/1,000 ML INFUS.BAG IV STA (22:17)
[2022-09-14] MEDS: HEPARIN NA (PORCINE) 5,000 UNITS/ML 1ML VIAL SQ SCH (23:10)
[2022-09-14] MEDS: VANCOMYCIN 1 GM/200 ML PREMIX BAG (RESTRICTED TO ID ONLY) IVPB SCH (23:11)
[2022-09-14] MEDS: INSULIN SLIDING SCALE (NOVOLOG) 1 VIAL SQ SCH (23:11)
[2022-09-14 23:29] LABS: LACTIC ACID 3.9 mmol/L (0.4-2.0)
[2022-09-15 01:46] LABS: HEMATOCRIT 33.7 % (32.4-45.2); HEMOGLOBIN 10.9 GM/dL (10.7-15.3); MCH 32.7 pg (25.7-33.7); MCHC 32.4 g/dl (32.0-36.0); MEAN CELL VOLUME 100.9 fl (80-96); MEAN PLT VOLUME 7.3 fl (7.5-11.1); PLATELET COUNT 519 10^3/uL (134-434); RBC 3.34 M/mm3 (3.60-5.2); RDW 13.6 % (11.6-15.6); WHITE BLOOD COUNT 23.7 K/mm3 (4.0-10.0)
[2022-09-15 02:06] LABS: MAGNESIUM 2.1 mg/dL (1.8-2.4)
[2022-09-15 02:08] LABS: BLOOD UREA NITROGEN 19.9 mg/dL (7-18)
[2022-09-15 02:10] LABS: CREATININE 0.8 mg/dL (0.55-1.3)
[2022-09-15 02:11] LABS: PHOSPHOROUS 2.3 mg/dL (2.5-4.9)
[2022-09-15 02:12] LABS: BILIRUBIN,TOTAL 0.2 mg/dL (0.2-1); TOT PROT 5.3 g/dl (6.4-8.2)
[2022-09-15] MEDS: methylPREDNISolone NA SUCC 40 MG/1 ML VIAL IVPUSH SCH ×3 (02:17→17:28)
[2022-09-15 02:22] LABS: ALBUMIN 2.6 g/dl (3.4-5.0); CALCIUM 7.3 mg/dL (8.5-10.1)
[2022-09-15] MEDS: PIPERACILLIN/TAZOB 3.375 GM 3.375 GM in DEXTROSE 5%-WATER - 50 ML IVPB SCH ×3 (02:26→22:29)
[2022-09-15] MEDS: HEPARIN NA (PORCINE) 5,000 UNITS/ML 1ML VIAL SQ SCH ×3 (05:32→21:44)
[2022-09-15] MEDS: INSULIN SLIDING SCALE (NOVOLOG) 1 VIAL SQ SCH ×4 (06:15→21:44)
[2022-09-15] MEDS: ALBUTEROL SO4 2.5/IPRATROPIUM 0.5 INH SOL 3 ML VIAL.NEB. NEB SCH ×4 (07:30→21:18)
[2022-09-15 07:51] LABS: BASO % 0.4 % (0-2.0); HEMATOCRIT 33.8 % (32.4-45.2); HEMOGLOBIN 10.9 GM/dL (10.7-15.3); LYMPH % 7.9 % (8-40); MCH 32.8 pg (25.7-33.7); MCHC 32.3 g/dl (32.0-36.0); MEAN CELL VOLUME 101.6 fl (80-96); MEAN PLT VOLUME 7.7 fl (7.5-11.1); MONO % 1.9 % (3.8-10.2); NEUT % 89.8 % (42.8-82.8); PLATELET COUNT 426 10^3/uL (134-434); RBC 3.33 M/mm3 (3.60-5.2); RDW 13.2 % (11.6-15.6); WHITE BLOOD COUNT 15.2 K/mm3 (4.0-10.0)
[2022-09-15 07:57] LABS: ARTERIAL BLOOD GAS BASE EXCESS -10.3 mmol/L (-2-2); ARTERIAL BLOOD GAS PO2 162.3 mmHg (80-100)
[2022-09-15 08:07] LABS: INR 0.96 (0.83-1.09); PROTHROMBIN TIME (PATIENT) 11.1 SEC (9.7-13.0)
[2022-09-15 08:11] LABS: ACTIVATED PTT 27.1 SECONDS (25.2-36.5)
[2022-09-15] MEDS ORDERED: PROPOFOL 1,000,000 MCG/100 ML VIAL ONE (08:12)
[2022-09-15 08:15] LABS: LACTIC ACID 4.6 mmol/L (0.4-2.0)
[2022-09-15 08:19] LABS: POTASSIUM 4.4 mmol/L (3.5-5.1)
[2022-09-15 08:22] LABS: ALBUMIN 2.7 g/dl (3.4-5.0); BLOOD UREA NITROGEN 22.5 mg/dL (7-18); MAGNESIUM 2.1 mg/dL (1.8-2.4)
[2022-09-15 08:24] LABS: CREATININE 0.8 mg/dL (0.55-1.3)
[2022-09-15 08:26] LABS: BILIRUBIN,TOTAL 0.3 mg/dL (0.2-1); TOT PROT 5.4 g/dl (6.4-8.2)
[2022-09-15 08:37] LABS: CALCIUM 7.4 mg/dL (8.5-10.1)
[2022-09-15] MEDS: LACTATED RINGERS SOLUTION 1,000 ML/1,000 ML INFUS.BAG IV SCH (08:50)
[2022-09-15 09:09] LABS: ARTERIAL BLD GAS O2 SATURATION 98.9 % (95-98); ARTERIAL BLOOD GAS BASE EXCESS -9.7 mmol/L (-2-2); ARTERIAL BLOOD GAS PO2 157.9 mmHg (80-100); ARTERIAL BLOOD GAS pH 7.326 (7.350-7.450)
[2022-09-15 09:27] LABS: VENT MODE PSV PLUS15
[2022-09-15] MEDS: PANTOPRAZOLE SODIUM 40 MG VIAL IVPUSH SCH (09:47)
[2022-09-15] MEDS: VANCOMYCIN 1 GM/200 ML PREMIX BAG (RESTRICTED TO ID ONLY) IVPB SCH (09:47)
[2022-09-15] MEDS ORDERED: CLOPIDOGREL BISULFATE 75 MG TABLET (FP) PO SCH (10:00)
[2022-09-15] MEDS ORDERED: ASPIRIN 81 MG CHEWABLE TABLETS PO SCH (10:00)
[2022-09-15] MEDS: MULTIVIT-MINERALS ORAL LIQUID NGT SCH (12:09)
[2022-09-15] MEDS: FOLIC ACID 1 MG TABLET (FP) NGT SCH (12:09)
[2022-09-15 15:32] LABS: POTASSIUM 4.2 mmol/L (3.5-5.1)
[2022-09-15 15:35] LABS: CALCIUM 7.8 mg/dL (8.5-10.1)
[2022-09-15 15:36] LABS: ALBUMIN 2.9 g/dl (3.4-5.0); BLOOD UREA NITROGEN 24.2 mg/dL (7-18)
[2022-09-15 15:39] LABS: CREATININE 0.9 mg/dL (0.55-1.3)
[2022-09-15 15:40] LABS: BILIRUBIN,TOTAL 0.3 mg/dL (0.2-1); TOT PROT 5.5 g/dl (6.4-8.2)
[2022-09-15 15:53] LABS: LACTIC ACID 7.3 mmol/L (0.4-2.0)
[2022-09-15] MEDS: NOREPINEPHRINE BITARTRATE/D5W 8 MG/250 ML BAG IVPB SCH (17:58)
[2022-09-15] MEDS: VASOPRESSIN 40 UNITS/100 ML BAG IV SCH (19:03)
[2022-09-15] MEDS: DEXMEDETOMIDINE PREMIX 400 MCG/100 ML BAG IVPB SCH (19:04)
[2022-09-16] MEDS: DEXMEDETOMIDINE PREMIX 400 MCG/100 ML BAG IVPB SCH ×2 (00:39→21:15)
[2022-09-16] MEDS: methylPREDNISolone NA SUCC 40 MG/1 ML VIAL IVPUSH SCH ×3 (02:47→17:06)
[2022-09-16] MEDS: PIPERACILLIN/TAZOB 3.375 GM 3.375 GM in DEXTROSE 5%-WATER - 50 ML IVPB SCH ×4 (05:17→22:30)
[2022-09-16] MEDS: HEPARIN NA (PORCINE) 5,000 UNITS/ML 1ML VIAL SQ SCH (05:17)
[2022-09-16] MEDS: INSULIN SLIDING SCALE (NOVOLOG) 1 VIAL SQ SCH ×4 (06:16→21:16)
[2022-09-16 07:14] LABS: HEMATOCRIT 27.3 % (32.4-45.2); HEMOGLOBIN 8.8 GM/dL (10.7-15.3); MCH 32.5 pg (25.7-33.7); MCHC 32.4 g/dl (32.0-36.0); MEAN CELL VOLUME 100.3 fl (80-96); PLATELET COUNT 381 10^3/uL (134-434); RBC 2.72 M/mm3 (3.60-5.2); RDW 13.4 % (11.6-15.6); WHITE BLOOD COUNT 17.4 K/mm3 (4.0-10.0)
[2022-09-16 07:16] LABS: POTASSIUM 4.4 mmol/L (3.5-5.1)
[2022-09-16 07:17] LABS: ALBUMIN 2.5 g/dl (3.4-5.0); CALCIUM 7.6 mg/dL (8.5-10.1); MAGNESIUM 2.1 mg/dL (1.8-2.4)
[2022-09-16 07:18] LABS: BLOOD UREA NITROGEN 26.7 mg/dL (7-18)
[2022-09-16 07:21] LABS: CREATININE 0.7 mg/dL (0.55-1.3); PHOSPHOROUS 2.7 mg/dL (2.5-4.9)
[2022-09-16 07:23] LABS: BILIRUBIN,TOTAL 0.2 mg/dL (0.2-1); TOT PROT 4.9 g/dl (6.4-8.2)
[2022-09-16] MEDS: ALBUTEROL SO4 2.5/IPRATROPIUM 0.5 INH SOL 3 ML VIAL.NEB. NEB SCH ×4 (07:45→20:44)
[2022-09-16 08:49] LABS: ARTERIAL BLD GAS O2 SATURATION 97.1 % (95-98); ARTERIAL BLOOD GAS BASE EXCESS -4.3 mmol/L (-2-2); ARTERIAL BLOOD GAS PO2 89.3 mmHg (80-100); ARTERIAL BLOOD GAS pH 7.426 (7.350-7.450)
[2022-09-16 08:58] LABS: ANISOCYTOSIS 0; MACROCYTOSIS 1+
[2022-09-16] MEDS: LACTATED RINGERS SOLUTION 1,000 ML/1,000 ML INFUS.BAG IV SCH ×2 (09:30→21:24)
[2022-09-16] MEDS: ASPIRIN 81 MG CHEWABLE TABLETS NGT SCH (10:11)
[2022-09-16] MEDS: MULTIVIT-MINERALS ORAL LIQUID NGT SCH (10:11)
[2022-09-16] MEDS: CLOPIDOGREL BISULFATE 75 MG TABLET (FP) NGT SCH (10:11)
[2022-09-16] MEDS: PANTOPRAZOLE SODIUM 40 MG VIAL IVPUSH SCH (10:11)
[2022-09-16] MEDS: FOLIC ACID 1 MG TABLET (FP) NGT SCH (10:11)
[2022-09-16] MEDS ORDERED: VANCOMYCIN 1 GM/200 ML PREMIX BAG (RESTRICTED TO ID ONLY) IVPB ONE (11:45)
[2022-09-16] MEDS: VANCOMYCIN/WATER FOR INJ (PEG) 1,000 MG/200 ML BAG IVPB SCH (21:15)
[2022-09-16] MEDS ORDERED: VANCOMYCIN 1 GM in D5W (PRE-DOCKED) 1,000 MG/250 ML (RESTRICTED TO ID ONLY IVPB SCH (22:00)
[2022-09-17] MEDS: methylPREDNISolone NA SUCC 40 MG/1 ML VIAL IVPUSH SCH ×3 (01:10→18:20)
[2022-09-17] MEDS: PIPERACILLIN/TAZOB 3.375 GM 3.375 GM in DEXTROSE 5%-WATER - 50 ML IVPB SCH ×4 (06:00→22:31)
[2022-09-17] MEDS: DEXMEDETOMIDINE PREMIX 400 MCG/100 ML BAG IVPB SCH ×2 (06:20→19:26)
[2022-09-17] MEDS: INSULIN SLIDING SCALE (NOVOLOG) 1 VIAL SQ SCH ×4 (06:21→21:24)
[2022-09-17 07:05] LABS: HEMATOCRIT 27.9 % (32.4-45.2); HEMOGLOBIN 9.3 GM/dL (10.7-15.3); MCH 33.3 pg (25.7-33.7); MCHC 33.3 g/dl (32.0-36.0); MEAN PLT VOLUME 7.7 fl (7.5-11.1); PLATELET COUNT 391 10^3/uL (134-434); RBC 2.79 M/mm3 (3.60-5.2); RDW 13.2 % (11.6-15.6); WHITE BLOOD COUNT 15.8 K/mm3 (4.0-10.0)
[2022-09-17 07:25] LABS: POTASSIUM 4.3 mmol/L (3.5-5.1)
[2022-09-17 07:34] LABS: ALBUMIN 2.6 g/dl (3.4-5.0)
[2022-09-17 07:36] LABS: BLOOD UREA NITROGEN 30.1 mg/dL (7-18); CALCIUM 8.2 mg/dL (8.5-10.1); MAGNESIUM 2.3 mg/dL (1.8-2.4)
[2022-09-17 07:37] LABS: CREATININE 0.8 mg/dL (0.55-1.3); PHOSPHOROUS 3.3 mg/dL (2.5-4.9)
[2022-09-17 07:40] LABS: BILIRUBIN,TOTAL 0.6 mg/dL (0.2-1); TOT PROT 5.1 g/dl (6.4-8.2)
[2022-09-17] MEDS: ALBUTEROL SO4 2.5/IPRATROPIUM 0.5 INH SOL 3 ML VIAL.NEB. NEB SCH ×4 (07:50→20:05)
[2022-09-17 08:38] LABS: ANISOCYTOSIS 0; MACROCYTOSIS 1+
[2022-09-17] MEDS: ASPIRIN 81 MG CHEWABLE TABLETS NGT SCH (09:21)
[2022-09-17] MEDS: MULTIVIT-MINERALS ORAL LIQUID NGT SCH (09:21)
[2022-09-17] MEDS: PANTOPRAZOLE SODIUM 40 MG VIAL IVPUSH SCH (09:21)
[2022-09-17] MEDS: FOLIC ACID 1 MG TABLET (FP) NGT SCH (09:21)
[2022-09-17] MEDS: CLOPIDOGREL BISULFATE 75 MG TABLET (FP) NGT SCH (09:22)
[2022-09-17] MEDS: VANCOMYCIN/WATER FOR INJ (PEG) 1,000 MG/200 ML BAG IVPB SCH (21:24)
[2022-09-18] MEDS: DEXMEDETOMIDINE PREMIX 400 MCG/100 ML BAG IVPB SCH (00:14)
[2022-09-18] MEDS: methylPREDNISolone NA SUCC 40 MG/1 ML VIAL IVPUSH SCH ×3 (00:59→17:56)
[2022-09-18] MEDS: PIPERACILLIN/TAZOB 3.375 GM 3.375 GM in DEXTROSE 5%-WATER - 50 ML IVPB SCH ×4 (05:25→23:33)
[2022-09-18] MEDS: INSULIN SLIDING SCALE (NOVOLOG) 1 VIAL SQ SCH ×4 (06:25→21:49)
[2022-09-18 07:42] LABS: HEMATOCRIT 28.7 % (32.4-45.2); HEMOGLOBIN 9.2 GM/dL (10.7-15.3); MCH 32.9 pg (25.7-33.7); MCHC 32.1 g/dl (32.0-36.0); MEAN CELL VOLUME 102.5 fl (80-96); MEAN PLT VOLUME 7.7 fl (7.5-11.1); PLATELET COUNT 390 10^3/uL (134-434); RDW 13.5 % (11.6-15.6); WHITE BLOOD COUNT 18.3 K/mm3 (4.0-10.0)
[2022-09-18] MEDS: ALBUTEROL SO4 2.5/IPRATROPIUM 0.5 INH SOL 3 ML VIAL.NEB. NEB SCH ×4 (07:45→20:38)
[2022-09-18 07:52] LABS: POTASSIUM 4.6 mmol/L (3.5-5.1)
[2022-09-18 07:58] LABS: ALBUMIN 2.6 g/dl (3.4-5.0); BLOOD UREA NITROGEN 38.5 mg/dL (7-18); CALCIUM 8.2 mg/dL (8.5-10.1); MAGNESIUM 2.3 mg/dL (1.8-2.4)
[2022-09-18 08:00] LABS: CREATININE 0.9 mg/dL (0.55-1.3); PHOSPHOROUS 4.8 mg/dL (2.5-4.9)
[2022-09-18 08:02] LABS: BILIRUBIN,TOTAL 0.4 mg/dL (0.2-1); TOT PROT 5.2 g/dl (6.4-8.2)
[2022-09-18] MEDS ORDERED: FUROSEMIDE 40 MG/4 ML INJECTABLE VIAL IVPUSH ONE (08:45)
[2022-09-18] MEDS ORDERED: ALPRAZolam 0.25 MG TABLET PO PRN (08:59)
[2022-09-18] MEDS: CLOPIDOGREL BISULFATE 75 MG TABLET (FP) NGT SCH (09:53)
[2022-09-18] MEDS: ASPIRIN 81 MG CHEWABLE TABLETS NGT SCH (09:53)
[2022-09-18] MEDS: FOLIC ACID 1 MG TABLET (FP) NGT SCH (09:53)
[2022-09-18] MEDS ORDERED: PANTOPRAZOLE 40 MG TABLET PO SCH (10:00)
[2022-09-18] MEDS: MULTIVIT-MINERALS ORAL LIQUID NGT SCH (10:06)
[2022-09-18 10:54] LABS: ANISOCYTOSIS 0; MACROCYTOSIS 1+
[2022-09-18] MEDS ORDERED: FAMOTIDINE 20 MG TABLET PO SCH (11:00)
[2022-09-18] MEDS: ALPRAZolam 0.25 MG TABLET PO PRN (21:48)
[2022-09-18] MEDS ORDERED: VANCOMYCIN/WATER FOR INJ (PEG) 1,000 MG/200 ML BAG IVPB SCH (22:00)
[2022-09-19] MEDS: methylPREDNISolone NA SUCC 40 MG/1 ML VIAL IVPUSH SCH ×3 (02:29→17:09)
[2022-09-19] MEDS: PIPERACILLIN/TAZOB 3.375 GM 3.375 GM in DEXTROSE 5%-WATER - 50 ML IVPB SCH ×4 (04:56→23:31)
[2022-09-19] MEDS: INSULIN SLIDING SCALE (NOVOLOG) 1 VIAL SQ SCH ×4 (06:40→22:07)
[2022-09-19 06:56] LABS: HEMATOCRIT 27.3 % (32.4-45.2); MCH 32.9 pg (25.7-33.7); MCHC 32.9 g/dl (32.0-36.0); MEAN CELL VOLUME 100.1 fl (80-96); MEAN PLT VOLUME 7.6 fl (7.5-11.1); PLATELET COUNT 389 10^3/uL (134-434); RBC 2.72 M/mm3 (3.60-5.2); RDW 13.5 % (11.6-15.6); WHITE BLOOD COUNT 14.7 K/mm3 (4.0-10.0)
[2022-09-19] MEDS: ALBUTEROL SO4 2.5/IPRATROPIUM 0.5 INH SOL 3 ML VIAL.NEB. NEB SCH ×4 (07:10→21:28)
[2022-09-19 07:16] LABS: CALCIUM 8.5 mg/dL (8.5-10.1)
[2022-09-19 07:17] LABS: BLOOD UREA NITROGEN 34.9 mg/dL (7-18); MAGNESIUM 1.9 mg/dL (1.8-2.4)
[2022-09-19 07:20] LABS: PHOSPHOROUS 3.5 mg/dL (2.5-4.9)
[2022-09-19] MEDS: ASPIRIN 81 MG CHEWABLE TABLETS PO SCH (10:35)
[2022-09-19] MEDS: CLOPIDOGREL BISULFATE 75 MG TABLET (FP) PO SCH (10:35)
[2022-09-19] MEDS: FAMOTIDINE 20 MG TABLET PO SCH (10:35)
[2022-09-19] MEDS: FOLIC ACID 1 MG TABLET (FP) PO SCH (10:35)
[2022-09-20] MEDS: methylPREDNISolone NA SUCC 40 MG/1 ML VIAL IVPUSH SCH ×3 (01:41→17:02)
[2022-09-20] MEDS: PIPERACILLIN/TAZOB 3.375 GM 3.375 GM in DEXTROSE 5%-WATER - 50 ML IVPB SCH ×3 (05:49→16:48)
[2022-09-20] MEDS: INSULIN SLIDING SCALE (NOVOLOG) 1 VIAL SQ SCH ×5 (06:55→22:12)
[2022-09-20 07:18] LABS: BASO % 0.3 % (0-2.0); EOS % 0.5 % (0-4.5); HEMATOCRIT 28.9 % (32.4-45.2); HEMOGLOBIN 9.4 GM/dL (10.7-15.3); LYMPH % 6.6 % (8-40); MCH 32.6 pg (25.7-33.7); MCHC 32.5 g/dl (32.0-36.0); MEAN CELL VOLUME 100.6 fl (80-96); MEAN PLT VOLUME 7.7 fl (7.5-11.1); MONO % 3.2 % (3.8-10.2); NEUT % 89.4 % (42.8-82.8); PLATELET COUNT 430 10^3/uL (134-434); RBC 2.87 M/mm3 (3.60-5.2); RDW 13.2 % (11.6-15.6); WHITE BLOOD COUNT 14.3 K/mm3 (4.0-10.0)
[2022-09-20 07:40] LABS: POTASSIUM 4.2 mmol/L (3.5-5.1)
[2022-09-20 07:43] LABS: CALCIUM 8.5 mg/dL (8.5-10.1)
[2022-09-20 07:44] LABS: ALBUMIN 2.7 g/dl (3.4-5.0); BLOOD UREA NITROGEN 24.6 mg/dL (7-18)
[2022-09-20 07:47] LABS: CREATININE 0.8 mg/dL (0.55-1.3)
[2022-09-20 07:48] LABS: TOT PROT 5.3 g/dl (6.4-8.2)
[2022-09-20 07:49] LABS: BILIRUBIN,TOTAL 0.5 mg/dL (0.2-1)
[2022-09-20] MEDS: FAMOTIDINE 20 MG TABLET PO SCH (08:59)
[2022-09-20] MEDS: CLOPIDOGREL BISULFATE 75 MG TABLET (FP) PO SCH (08:59)
[2022-09-20] MEDS: FOLIC ACID 1 MG TABLET (FP) PO SCH (08:59)
[2022-09-20] MEDS: ALPRAZolam 0.25 MG TABLET PO PRN ×2 (08:59→18:55)
[2022-09-20] MEDS: ASPIRIN 81 MG CHEWABLE TABLETS PO SCH (09:00)
[2022-09-20] MEDS: ALBUTEROL SO4 2.5/IPRATROPIUM 0.5 INH SOL 3 ML VIAL.NEB. NEB SCH ×3 (11:14→20:38)
[2022-09-20 14:14] VITALS: BMI 18.4
[2022-09-21] MEDS: PIPERACILLIN/TAZOB 3.375 GM 3.375 GM in DEXTROSE 5%-WATER - 50 ML IVPB SCH ×5 (00:09→23:16)
[2022-09-21] MEDS: methylPREDNISolone NA SUCC 40 MG/1 ML VIAL IVPUSH SCH (02:06)
[2022-09-21] MEDS: INSULIN SLIDING SCALE (NOVOLOG) 1 VIAL SQ SCH ×4 (06:55→21:14)
[2022-09-21] MEDS: ALBUTEROL SO4 2.5/IPRATROPIUM 0.5 INH SOL 3 ML VIAL.NEB. NEB SCH ×4 (08:05→20:40)
[2022-09-21] MEDS: FOLIC ACID 1 MG TABLET (FP) PO SCH (09:10)
[2022-09-21] MEDS: ALPRAZolam 0.25 MG TABLET PO PRN (09:10)
[2022-09-21] MEDS: FAMOTIDINE 20 MG TABLET PO SCH (09:10)
[2022-09-21] MEDS: ASPIRIN 81 MG CHEWABLE TABLETS PO SCH (09:11)
[2022-09-21] MEDS: predniSONE 10 MG TABLET (UD) PO SCH (09:11)
[2022-09-21] MEDS: amLODIPine BESYLATE 2.5 MG TABLET (FP) PO SCH (09:11)
[2022-09-21] MEDS: CLOPIDOGREL BISULFATE 75 MG TABLET (FP) PO SCH (09:11)
[2022-09-21] MEDS ORDERED: hydrALAZINE HCL 20 MG/ML VIAL IVPUSH PRN (12:39)
[2022-09-21] MEDS: VALSARTAN 80 MG TABLET PO SCH (13:13)
[2022-09-22] MEDS: PIPERACILLIN/TAZOB 3.375 GM 3.375 GM in DEXTROSE 5%-WATER - 50 ML IVPB SCH ×2 (04:55→10:51)
[2022-09-22] MEDS: INSULIN SLIDING SCALE (NOVOLOG) 1 VIAL SQ SCH ×4 (06:39→21:38)
[2022-09-22 07:42] LABS: BASO % 0.3 % (0-2.0); EOS % 2.3 % (0-4.5); HEMATOCRIT 28.4 % (32.4-45.2); HEMOGLOBIN 9.3 GM/dL (10.7-15.3); LYMPH % 15.5 % (8-40); MCH 33.1 pg (25.7-33.7); MCHC 32.6 g/dl (32.0-36.0); MEAN CELL VOLUME 101.6 fl (80-96); MEAN PLT VOLUME 7.7 fl (7.5-11.1); MONO % 8.4 % (3.8-10.2); NEUT % 73.5 % (42.8-82.8); PLATELET COUNT 455 10^3/uL (134-434); RBC 2.79 M/mm3 (3.60-5.2); RDW 13.4 % (11.6-15.6); WHITE BLOOD COUNT 15.9 K/mm3 (4.0-10.0)
[2022-09-22] MEDS: predniSONE 10 MG TABLET (UD) PO SCH (09:00)
[2022-09-22] MEDS: FOLIC ACID 1 MG TABLET (FP) PO SCH (09:01)
[2022-09-22] MEDS: VALSARTAN 80 MG TABLET PO SCH (09:01)
[2022-09-22] MEDS: amLODIPine BESYLATE 2.5 MG TABLET (FP) PO SCH (09:01)
[2022-09-22] MEDS: ASPIRIN 81 MG CHEWABLE TABLETS PO SCH (09:01)
[2022-09-22] MEDS: CLOPIDOGREL BISULFATE 75 MG TABLET (FP) PO SCH (09:01)
[2022-09-22] MEDS: FAMOTIDINE 20 MG TABLET PO SCH (09:01)
[2022-09-22] MEDS: ALBUTEROL SO4 2.5/IPRATROPIUM 0.5 INH SOL 3 ML VIAL.NEB. NEB SCH (20:50)
[2022-09-23] MEDS: INSULIN SLIDING SCALE (NOVOLOG) 1 VIAL SQ SCH ×4 (06:31→22:52)
[2022-09-23] MEDS: ALBUTEROL SO4 2.5/IPRATROPIUM 0.5 INH SOL 3 ML VIAL.NEB. NEB SCH ×3 (07:30→15:51)
[2022-09-23 08:21] LABS: BASO % 0.4 % (0-2.0); EOS % 1.6 % (0-4.5); HEMATOCRIT 29.9 % (32.4-45.2); HEMOGLOBIN 9.5 GM/dL (10.7-15.3); LYMPH % 13.2 % (8-40); MCH 32.6 pg (25.7-33.7); MCHC 31.8 g/dl (32.0-36.0); MEAN CELL VOLUME 102.6 fl (80-96); MEAN PLT VOLUME 7.8 fl (7.5-11.1); MONO % 8.2 % (3.8-10.2); NEUT % 76.6 % (42.8-82.8); PLATELET COUNT 470 10^3/uL (134-434); RBC 2.91 M/mm3 (3.60-5.2); RDW 13.7 % (11.6-15.6); WHITE BLOOD COUNT 16.7 K/mm3 (4.0-10.0)
[2022-09-23] MEDS: VALSARTAN 80 MG TABLET PO SCH (09:12)
[2022-09-23] MEDS: CLOPIDOGREL BISULFATE 75 MG TABLET (FP) PO SCH (09:12)
[2022-09-23] MEDS: predniSONE 10 MG TABLET (UD) PO SCH (09:12)
[2022-09-23] MEDS: amLODIPine BESYLATE 2.5 MG TABLET (FP) PO SCH (09:13)
[2022-09-23] MEDS: FOLIC ACID 1 MG TABLET (FP) PO SCH (09:13)
[2022-09-23] MEDS: ASPIRIN 81 MG CHEWABLE TABLETS PO SCH (09:13)
[2022-09-23] MEDS: FAMOTIDINE 20 MG TABLET PO SCH (09:13)
[2022-09-23] MEDS ORDERED: dilTIAZem HCL 125 MG/25 ML - 25 ML VIAL ONE (16:38)
[2022-09-23] MEDS ORDERED: hydrALAZINE HCL 20 MG/ML VIAL IVPUSH PRN (21:02)
[2022-09-24] MEDS: INSULIN SLIDING SCALE (NOVOLOG) 1 VIAL SQ SCH ×4 (06:57→23:53)
[2022-09-24] MEDS: predniSONE 10 MG TABLET (UD) PO SCH (10:59)
[2022-09-24] MEDS: ASPIRIN 81 MG CHEWABLE TABLETS PO SCH (11:00)
[2022-09-24] MEDS: VALSARTAN 80 MG TABLET PO SCH (11:01)
[2022-09-24] MEDS: FOLIC ACID 1 MG TABLET (FP) PO SCH (11:01)
[2022-09-24] MEDS: amLODIPine BESYLATE 2.5 MG TABLET (FP) PO SCH (11:02)
[2022-09-24] MEDS: FAMOTIDINE 20 MG TABLET PO SCH (11:02)
[2022-09-24] MEDS: CLOPIDOGREL BISULFATE 75 MG TABLET (FP) PO SCH (11:03)
[2022-09-24] MEDS: ALBUTEROL SO4 2.5/IPRATROPIUM 0.5 INH SOL 3 ML VIAL.NEB. NEB SCH ×3 (11:43→12:51)
[2022-09-24] MEDS ORDERED: FUROSEMIDE 40 MG/4 ML INJECTABLE VIAL IVPUSH ONE (22:53)
[2022-09-24] MEDS ORDERED: LEVALBUTEROL HCL 0.31 MG/3 ML VIAL.NEB IH ONE (23:36)
[2022-09-25 01:37] LABS: HEMATOCRIT 31.5 % (32.4-45.2); HEMOGLOBIN 10.4 GM/dL (10.7-15.3); MCH 32.8 pg (25.7-33.7); MCHC 32.9 g/dl (32.0-36.0); MEAN CELL VOLUME 99.6 fl (80-96); MEAN PLT VOLUME 7.1 fl (7.5-11.1); PLATELET COUNT 509 10^3/uL (134-434); RBC 3.16 M/mm3 (3.60-5.2); RDW 13.9 % (11.6-15.6); WHITE BLOOD COUNT 20.3 K/mm3 (4.0-10.0)
[2022-09-25 02:02] LABS: POTASSIUM 4.1 mmol/L (3.5-5.1)
[2022-09-25 02:05] LABS: ALBUMIN 2.6 g/dl (3.4-5.0); BLOOD UREA NITROGEN 21.8 mg/dL (7-18)
[2022-09-25 02:08] LABS: CREATININE 0.6 mg/dL (0.55-1.3)
[2022-09-25 02:09] LABS: BILIRUBIN,TOTAL 0.4 mg/dL (0.2-1)
[2022-09-25 02:10] LABS: TOT PROT 5.6 g/dl (6.4-8.2)
[2022-09-25 02:13] LABS: N-TERMINAL BNP 21759.7 pg/ml (5-450)
[2022-09-25 02:32] LABS: CALCIUM 8.9 mg/dL (8.5-10.1)
[2022-09-25 02:56] LABS: ANISOCYTOSIS 1+; MACROCYTOSIS 0; OVALOCYTE 2+
[2022-09-25] MEDS: FUROSEMIDE 40 MG/4 ML INJECTABLE VIAL IVPUSH SCH ×2 (05:55→10:39)
[2022-09-25] MEDS: INSULIN SLIDING SCALE (NOVOLOG) 1 VIAL SQ SCH ×4 (06:16→23:00)
[2022-09-25 09:30] LABS: BASO % 0.5 % (0-2.0); EOS % 1.1 % (0-4.5); HEMATOCRIT 28.7 % (32.4-45.2); HEMOGLOBIN 9.6 GM/dL (10.7-15.3); LYMPH % 17.3 % (8-40); MCH 33.1 pg (25.7-33.7); MCHC 33.3 g/dl (32.0-36.0); MEAN CELL VOLUME 99.3 fl (80-96); MEAN PLT VOLUME 7.4 fl (7.5-11.1); MONO % 6.5 % (3.8-10.2); NEUT % 74.6 % (42.8-82.8); PLATELET COUNT 448 10^3/uL (134-434); RBC 2.89 M/mm3 (3.60-5.2); RDW 13.5 % (11.6-15.6); WHITE BLOOD COUNT 14.5 K/mm3 (4.0-10.0)
[2022-09-25 09:33] LABS: MAGNESIUM 1.9 mg/dL (1.8-2.4)
[2022-09-25] MEDS: FOLIC ACID 1 MG TABLET (FP) PO SCH (10:37)
[2022-09-25] MEDS: CLOPIDOGREL BISULFATE 75 MG TABLET (FP) PO SCH (10:37)
[2022-09-25] MEDS: FAMOTIDINE 20 MG TABLET PO SCH (10:37)
[2022-09-25] MEDS: VALSARTAN 80 MG TABLET PO SCH (10:37)
[2022-09-25] MEDS: predniSONE 10 MG TABLET (UD) PO SCH (10:37)
[2022-09-25] MEDS: amLODIPine BESYLATE 2.5 MG TABLET (FP) PO SCH (10:37)
[2022-09-25] MEDS: HEPARIN NA (PORCINE) 5,000 UNITS/ML 1ML VIAL SQ SCH ×2 (10:38→22:55)
[2022-09-25] MEDS: ASPIRIN 81 MG CHEWABLE TABLETS PO SCH (10:38)
[2022-09-25] MEDS ORDERED: INSULIN (NOVOLOG) ASPART 100 UNITS/ML 10ML VIAL ONE ×2 (11:06→17:21)
[2022-09-25 11:56] LABS: POTASSIUM 3.6 mmol/L (3.5-5.1)
[2022-09-25 11:58] LABS: CALCIUM 8.9 mg/dL (8.5-10.1)
[2022-09-25 11:59] LABS: ALBUMIN 2.4 g/dl (3.4-5.0); BLOOD UREA NITROGEN 20.5 mg/dL (7-18)
[2022-09-25 12:02] LABS: CREATININE 0.7 mg/dL (0.55-1.3)
[2022-09-25 12:03] LABS: TOT PROT 5.3 g/dl (6.4-8.2)
[2022-09-25 12:04] LABS: BILIRUBIN,TOTAL 0.4 mg/dL (0.2-1)
[2022-09-26] MEDS: INSULIN SLIDING SCALE (NOVOLOG) 1 VIAL SQ SCH ×4 (06:40→21:34)
[2022-09-26 08:11] LABS: BASO % 0.3 % (0-2.0); HEMATOCRIT 28.1 % (32.4-45.2); MCH 32.6 pg (25.7-33.7); MCHC 32.1 g/dl (32.0-36.0); MEAN CELL VOLUME 101.6 fl (80-96); MEAN PLT VOLUME 7.6 fl (7.5-11.1); MONO % 6.8 % (3.8-10.2); NEUT % 74.9 % (42.8-82.8); PLATELET COUNT 487 10^3/uL (134-434); RBC 2.77 M/mm3 (3.60-5.2); RDW 13.1 % (11.6-15.6); WHITE BLOOD COUNT 14.2 K/mm3 (4.0-10.0)
[2022-09-26 08:14] LABS: POTASSIUM 3.8 mmol/L (3.5-5.1)
[2022-09-26 08:20] LABS: ALBUMIN 2.2 g/dl (3.4-5.0); BLOOD UREA NITROGEN 23.3 mg/dL (7-18)
[2022-09-26 08:21] LABS: CALCIUM 8.5 mg/dL (8.5-10.1)
[2022-09-26 08:22] LABS: CREATININE 0.7 mg/dL (0.55-1.3)
[2022-09-26 08:24] LABS: BILIRUBIN,TOTAL 0.4 mg/dL (0.2-1)
[2022-09-26] MEDS: FAMOTIDINE 20 MG TABLET PO SCH (09:42)
[2022-09-26] MEDS: VALSARTAN 80 MG TABLET PO SCH (09:42)
[2022-09-26] MEDS: predniSONE 10 MG TABLET (UD) PO SCH (09:42)
[2022-09-26] MEDS: FOLIC ACID 1 MG TABLET (FP) PO SCH (09:42)
[2022-09-26] MEDS: HEPARIN NA (PORCINE) 5,000 UNITS/ML 1ML VIAL SQ SCH ×2 (09:42→21:30)
[2022-09-26] MEDS: CLOPIDOGREL BISULFATE 75 MG TABLET (FP) PO SCH (09:42)
[2022-09-26] MEDS: ASPIRIN 81 MG CHEWABLE TABLETS PO SCH (09:42)
[2022-09-26] MEDS: amLODIPine BESYLATE 2.5 MG TABLET (FP) PO SCH (09:42)
[2022-09-26] MEDS: FUROSEMIDE 40 MG/4 ML INJECTABLE VIAL IVPUSH SCH (09:42)
[2022-09-26] MEDS ORDERED: hydrALAZINE HCL 20 MG/ML VIAL IVPUSH PRN (11:18)
[2022-09-26] MEDS: FUROSEMIDE 40 MG/4 ML INJECTABLE VIAL IVPB SCH ×2 (13:12→13:53)
[2022-09-26] MEDS ORDERED: INSULIN (NOVOLOG) ASPART 100 UNITS/ML 10ML VIAL ONE (21:32)
[2022-09-27] MEDS: FUROSEMIDE 40 MG/4 ML INJECTABLE VIAL IVPB SCH ×2 (06:10→14:03)
[2022-09-27] MEDS: INSULIN SLIDING SCALE (NOVOLOG) 1 VIAL SQ SCH ×4 (07:11→21:54)
[2022-09-27] MEDS: VALSARTAN 80 MG TABLET PO SCH (09:48)
[2022-09-27] MEDS: FOLIC ACID 1 MG TABLET (FP) PO SCH (09:48)
[2022-09-27] MEDS: FAMOTIDINE 20 MG TABLET PO SCH (09:49)
[2022-09-27] MEDS: HEPARIN NA (PORCINE) 5,000 UNITS/ML 1ML VIAL SQ SCH ×2 (09:49→21:48)
[2022-09-27] MEDS: amLODIPine BESYLATE 2.5 MG TABLET (FP) PO SCH (09:49)
[2022-09-27] MEDS: CLOPIDOGREL BISULFATE 75 MG TABLET (FP) PO SCH (09:49)
[2022-09-27] MEDS ORDERED: predniSONE 10 MG TABLET (UD) PO SCH (10:00)
[2022-09-27] MEDS ORDERED: ASPIRIN 81 MG CHEWABLE TABLETS PO SCH (10:00)
[2022-09-27] MEDS ORDERED: INSULIN (NOVOLOG) ASPART 100 UNITS/ML 10ML VIAL ONE (21:53)
[2022-09-27 22:42] VITALS: RESP 18
[2022-09-28] MEDS: FUROSEMIDE 40 MG TABLET (FP) PO SCH ×3 (06:04→14:16)
[2022-09-28] MEDS: INSULIN SLIDING SCALE (NOVOLOG) 1 VIAL SQ SCH ×4 (06:04→21:23)
[2022-09-28] MEDS: HEPARIN NA (PORCINE) 5,000 UNITS/ML 1ML VIAL SQ SCH ×2 (09:58→21:23)
[2022-09-28] MEDS: predniSONE 10 MG TABLET (UD) PO SCH (09:59)
[2022-09-28] MEDS: CLOPIDOGREL BISULFATE 75 MG TABLET (FP) PO SCH (09:59)
[2022-09-28] MEDS: FAMOTIDINE 20 MG TABLET PO SCH (09:59)
[2022-09-28] MEDS: FOLIC ACID 1 MG TABLET (FP) PO SCH (10:00)
[2022-09-28] MEDS: metoPROLOL SUCCINATE 25 MG TAB.SR.24H (FP) PO SCH (10:00)
[2022-09-28] MEDS: amLODIPine BESYLATE 2.5 MG TABLET (FP) PO SCH (10:01)
[2022-09-28] MEDS: VALSARTAN 80 MG TABLET PO SCH (10:34)
[2022-09-28] MEDS ORDERED: INSULIN (NOVOLOG) ASPART 100 UNITS/ML 10ML VIAL ONE (17:19)
[2022-09-29] MEDS: FUROSEMIDE 40 MG TABLET (FP) PO SCH ×2 (06:17→08:00)
[2022-09-29] MEDS: INSULIN SLIDING SCALE (NOVOLOG) 1 VIAL SQ SCH ×2 (06:17→11:34)
[2022-09-29] MEDS: VALSARTAN 80 MG TABLET PO SCH (09:33)
[2022-09-29] MEDS: FAMOTIDINE 20 MG TABLET PO SCH (09:33)
[2022-09-29] MEDS: HEPARIN NA (PORCINE) 5,000 UNITS/ML 1ML VIAL SQ SCH (09:33)
[2022-09-29] MEDS: amLODIPine BESYLATE 2.5 MG TABLET (FP) PO SCH (09:33)
[2022-09-29] MEDS: FOLIC ACID 1 MG TABLET (FP) PO SCH (09:33)
[2022-09-29] MEDS: metoPROLOL SUCCINATE 25 MG TAB.SR.24H (FP) PO SCH (09:33)
[2022-09-29] MEDS: predniSONE 10 MG TABLET (UD) PO SCH (09:33)
[2022-09-29] MEDS: CLOPIDOGREL BISULFATE 75 MG TABLET (FP) PO SCH (09:34)
[2022-09-29 12:18] VITALS: BP 112/53; PULSE 88; TEMP 98.4
== END 2022-09-29 12:13 | DRG 871 ==
LOC: JER 14:53 → JERBED 16:15 → JICU 18:13 → J2W 09-18 17:58 → J8W 09-23 20:49 → J4W 09-25 17:17
PROVIDERS: ADMIT Family Medicine; ATTEND Family Medicine
PROC: 05HM33Z Insertion of Infusion Device into Right Internal Jugular Vein, Percutaneous Approach (ICD-10-PCS; principal; 2022-09-14)
PROC: B543ZZA Ultrasonography of Right Jugular Veins, Guidance (ICD-10-PCS; 2022-09-14)
PROC: 0BH17EZ Insertion of Endotracheal Airway into Trachea, Via Natural or Artificial Opening (ICD-10-PCS; 2022-09-14)
PROC: 5A1935Z Respiratory Ventilation, Less than 24 Consecutive Hours (ICD-10-PCS; 2022-09-14)
PROC: 4A133B1 Monitoring of Arterial Pressure, Peripheral, Percutaneous Approach (ICD-10-PCS; 2022-09-14)
PROC: 4A133J1 Monitoring of Arterial Pulse, Peripheral, Percutaneous Approach (ICD-10-PCS; 2022-09-14)
DX: A41.89 Other specified sepsis (principal); J18.9 Pneumonia, unspecified organism; J96.21 Acute and chronic respiratory failure with hypoxia; R65.21 Severe sepsis with septic shock; J96.22 Acute and chronic respiratory failure with hypercapnia; E87.29 Other acidosis; J44.0 Chronic obstructive pulmonary disease with (acute) lower respiratory infection; I24.8 Other forms of acute ischemic heart disease; J44.1 Chronic obstructive pulmonary disease with (acute) exacerbation; J90 Pleural effusion, not elsewhere classified; R77.8 Other specified abnormalities of plasma proteins; E78.5 Hyperlipidemia, unspecified; E11.9 Type 2 diabetes mellitus without complications; F32.A Depression, unspecified; F03.90 Unspecified dementia, unspecified severity, without behavioral disturbance, psychotic disturbance, mood disturbance, and anxiety; I10 Essential (primary) hypertension; I25.10 Atherosclerotic heart disease of native coronary artery without angina pectoris; K21.9 Gastro-esophageal reflux disease without esophagitis; R91.8 Other nonspecific abnormal finding of lung field; D50.9 Iron deficiency anemia, unspecified; R41.0 Disorientation, unspecified; M81.0 Age-related osteoporosis without current pathological fracture; R00.0 Tachycardia, unspecified; I07.1 Rheumatic tricuspid insufficiency; J84.10 Pulmonary fibrosis, unspecified; G47.30 Sleep apnea, unspecified; Z86.711 Personal history of pulmonary embolism; Z96.641 Presence of right artificial hip joint
CPT/HCPCS: 0241U-QW; 36415; 36600; 70450-TC; 71045-TC-FY; 71250-TC; 80048; 80053; 81003; 82550; 82553; 82607; 82728; 82746; 82803; 82962; 83540; 83550; 83605; 83735; 83880; 84100; 84443; 84466; 84484; 85025; 85027; 85045; 85610; 85730; 86850; 86900; 86901; 87040; 87070; 87077; 87086; 87186; 87205; 87899; 93005; 93010; 93306-TC; 94002; 94640; 97116-GP; 97161-GP; 99291; 99292; G0480; J1644; J3490